=== PATIENT | female | born 1965 | race Caucasian/White ===

== ENCOUNTER 2017-05-16 11:54 | Inpatient (IN) | payer BC ==
[~2017-05-16] VITALS: Ht 160 cm; Wt 59.5 kg
[~2017-05-16 11:54] MED LIST: ALDACTONE50 MG PO; CEFTRIAXON2 GM/50 ML IV; DILAUDID4 MG PO; ENULOSE10 GM/15 M PO; ENULOSE10 GM/15 M PR; FUROSEMIDE20 MG PO; GLIPIZIDE XL10 MG PO; GLIPIZIDE10 MG PO; LACTULOSE10 GM/15 M PO; LACTULOSE20 GM/30 M PO; LASIX20 MG PO; LEVAQUIN 5500 MG/100 IV; METFORMIN HCL1000 MG PO; METRONIDAZ500 MG/100 IV; NOVOLIN R100 UNIT/1 SUB-Q; OMEPRAZOLE20 MG PO; OXYCODONE HCL5 MG PO; PROTONIX40 MG PO; SPIRONOLACTONE50 MG PO; VITAMIN B COMP1 EAC3 PO; XIFAXAN550 MG PO; ZOFRAN ODT4 MG SL; ZOFRAN8 MG PO
--- NOTE | 2017-05-16 19:54 | NUR ---
IV SITE INTACT, NO REDNESS OR SWELLING NOTED, FLUSHES EASILY. PT NOT ABLE TO FOLLOW COMMANDS, IS IMPULSIVE, AND IS NOT ORIENTED TO PLACE, TIME, OR EVENT. PT WILL RESPOND TO HER NAME 50% OF THE TIME. PT DENIES PAIN AT THIS TIME. VITALS WNL.
--- NOTE | 2017-05-16 21:36 | NUR ---
PT CONTINUES TO TOSS AND TURN IN BED, BECOMES FRUSTRATED WITH MONITOR CABLES AND IV SITE. PT RESPONDS OCCASIONALLY WITH ONE WORD RESPONSES "NO" "YES" "OUCH".
--- NOTE | 2017-05-16 23:14 | NUR ---
PT MOSTLY SLEEPING, TURNS OCCASIONALLY IN BED, PT APPEARS LESS DISTRESSED.
--- NOTE | 2017-05-16 23:55 | NUR ---
PT STANDS UP OUT OF BED ON OWN, REQUIRES DIRECTION TO GET TO COMMODE AND GET UNDERPANTS DOWN. PT HAD LIQUID BM AND URINATED. PT REQUIRES DIRECTION TO GET BACK TO BED. PT PULLS OFF MONITOR WIRES, BECOMES TEARFUL WHEN THEY ARE REPLACED. PT IS NOT AWARE OF PLACE, EVENT, OR CARE PLAN. PT IS ABLE TO STATE IT IS NIGHT TIME, ATTEMPTED TO REORIENT PT TO PLACE AND EVENT WELL HER FAMILY AND SO KNOWING WHERE SHE IS. PT DID TAKE SIPS OF SODA, DENIES NAUSEA AND PAIN. PT HAS FLAT AND WITHDRAWN AFFECT, APPEARS FRUSTRATED WITH MEDICAL INTERVENTIONS SUCH VITALS MONITORING. PT PULLS COVERS OVER HERSELF AND REFUSES TO INTERACT WITH HEALTHCARE PROVIDERS.
--- NOTE | 2017-05-17 01:11 | NUR ---
PT UP TO COMMODE AND BATHROOM THREE DIFFERENT TIMES IN THE LAST 30 MIN. PT ABLE TO STATE "CAN I PLEASE USE THE RESTROOM" AND "CAN I HAVE SOME MORE BLANKETS?". PT APPEARS TO BE HAVING DIFFICULTY GETTING COMFORTABLE IN BED. BEHAVIORIST TAKEN OFF FOR PT COMFORT, WILL CONTINUE TO SPOT CHECK, MARGIE WNL. PT TEARFUL AT TIMES AND STATES "I HATE THIS".
--- NOTE | 2017-05-17 01:53 | NUR ---
PT UP AND OUT OF BED SEVERAL TIMES, PT APPEARS TO BE HAVING A DIFFICULT TIME GETTING COMFORTABLE.
--- NOTE | 2017-05-17 03:41 | NUR ---
PT ABLE TO GET UP TO THE BATHROOM ON HER OWN, CLOSELY MONITORED. GATE IS STEADY.
--- NOTE | 2017-05-17 04:02 | NUR ---
PT STILL IRRIATATED WITH MEDICAL INTERVENTIONS, HOWEVER HAS QUIT CURSING AND NOW SAYS "OH FOR GOODNESS SAKE". PT VITALS WNL, HEART RYTHEM REMAINS SINUS.
--- NOTE | 2017-05-17 04:04 | NUR ---
IV SITE INTACT, NO REDNESS OR SWELLING NOTED, FLUSHES EASILY.
--- NOTE | 2017-05-17 04:11 | NUR ---
PT UP TO THE BATHROOM APPROXIMATLY EVERY 15 MIN FOR THE LAST THREE HOURS. PT SOMETIMES HAS SCANT BM, OTHER TIMES FLATUS.
--- NOTE | 2017-05-17 04:52 | NUR ---
PT FINALLY SLEEPING, HAS NOT BEEN UP TO THE BATHROOM IN THE LAST 40 MIN.
--- NOTE | 2017-05-17 05:07 | NUR ---
PT UP TO THE BATHROOM.
--- NOTE | 2017-05-17 05:33 | NUR ---
WHEN ASKING PT QUESTION "DO YOU NEED SOMETHING?" PT NODS HEAD, WHEN ASKED "WHAT CAN I DO FOR YOU?" PT NODS HEAD AND CLOSES HER EYES; CONFUSION STILL PRESENT.
--- NOTE | 2017-05-17 05:57 | NUR ---
LAB IN ROOM TO DRAW. PT DALILA WELL.
--- NOTE | 2017-05-17 07:30 | NUR ---
This RN assumes care of patient who is confused at this time. Patient able to say her name and date of . When asked todays date she repeats her date of . Patient unable to state what year this is or where she is exactly, but does know that she is in [place]. Patient allows RN to do full assessment. Does not make eye contact. Gives one word yes/no answers. Patient has call light, denies other needs.
--- NOTE | 2017-05-17 08:37 | NUR ---
Family at bedside, patient takes lactulose and becomes nauseated. This RN calls MD for nausea med as patient has already recieved Zofran. Medicated pt with additional 4mg IV Zofran. Patient agrees to wear a hospital gown. Has previously been walking around room only in a small tank top. Family report patient is "still real different, but a lot better than yesterday"
--- NOTE | 2017-05-17 08:54 | NUR ---
blood sugar check 190 will notify md as no blood sugar checks or insulin ordered
--- NOTE | 2017-05-17 09:28 | NUR ---
CALLED MD ABOUT INSULIN, MD ORDERS ACCU CHECKS AND S/S INSULIN, PATIENT GIVEN 3 UNITS SUB Q INSULIN FOR BLOOD GLUCOSE OF 190. PATIENT HAS BEEN UP TO BATHROOM SEVERAL TIMES FOR LIQUID BOWEL MOVEMENTS.
--- NOTE | 2017-05-17 11:34 | NUR ---
Patient has been up to the bathroom at least 4 times every hour. Patient has been ambulating independantly, steady on her feet. Patient denies pain/nausea. Patient's significant other at bedside. Patient denies needs.
--- NOTE | 2017-05-17 11:55 | NUR ---
THIS RN ENCOURAGES PATIENT TO TAKE A SHOWER, PATTIENT DOES NOT MAKE EYE CONTACT WITH RN AND SAYS "NO" PATIENT ALLOWS RN TO TAKE VITAL SIGNS, LISTEN TO HEART AND LUNGS. PATIENT RE-ORIENTED TO SURROUNDINGS, DATE, AND EVENT.
--- NOTE | 2017-05-17 12:52 | NUR ---
THIS RN ASSISTS PATIENT TO TAKE A SHOWER AND WASH HER HAIR, BRUSH HER TEETH. PATIENT RELUCTANCT TO SHOWER. PATIENT SHOWERS, BACK TO BED. REFUSES TO EAT ANTHING OFF CLEAR LIQUID TRAY, PATIENT NOT TALKATIVE WITH STAFF, STATES "I AM SO FRUSTRATED." PATIENT HAS CALL LIGHT IN REACH. NO REQUESTS. PT TEARFUL ON AND OFF
--- NOTE | 2017-05-17 13:21 | NUR ---
PATIENT UP TO BATHROOM FOR SMALL LIQUID BOWEL MOVEMENT.
--- NOTE | 2017-05-17 17:49 | NUR ---
Patient c/o nausea. Medicated patient with 4 mg IV Zofran. Patient refuses dinner tray. Patient still unable to correctly state todays date, her current location.
--- NOTE | 2017-05-17 17:52 | NUR ---
PATIENT TOSSING AND TURNING IN BED.
--- NOTE | 2017-05-17 18:19 | NUR ---
Patient up to bathroom, steady on her feet. Voids 100 mls dark donato urine.
--- NOTE | 2017-05-17 20:00 | NUR ---
Patient sitting up in bed; boyfriend in room. Patient answers most questions appropriately; however doesn't answer all questions. When asked where she is, she looks over towards her boyfriend and doesn't answer. Patient was able to answer '[place]' when asked what town we are in, but unable to state 'hospital'. Patient knew we are about to celebrate the 23 of May, but was unable to tell me it is April; able to tell me it is 2016 but not the day of the week or the date. Patient stated full name and date of when asked, and followed all commands when asked.
--- NOTE | 2017-05-17 21:30 | NUR ---
No changes in patient assessment. Patient stated 'NO!' when asked to take her Enulose, but was cooperative in all other cares. Patient reminded to call for help when needing to get out of bed to use the bathroom. Patient remains within view of the nurses station.
--- NOTE | 2017-05-17 22:00 | NUR ---
patient up to bathroom; patient instructed to urinate into hat, but patient either missed the 'hat' or emptied it after voiding as 'hat' was empty after patient left bathroom.
--- NOTE | 2017-05-18 01:00 | NUR ---
PATIENT IS VERY RESTLESS; HAS NOT SLEPT SO FAR THIS SHIFT. PATIENT STATES IS SLIGHTLY NAUSEATED. NO OTHER CHANGES IN ASSESSMENT.
--- NOTE | 2017-05-18 04:00 | NUR ---
PATIENT C/O ABDOMINAL PAIN AND NAUSEA. PATIENT TOLD I DIDN'T HAVE ANYTHING ORDERED FOR PAIN AT THIS TIME. PATIENT DENIES OTHER COMPLAINTS. PATIENT IS AWARE OF BEING IN HOSPITAL, AND ABLE TO TELL THIS NURSE IT IS APRIL 2017
--- NOTE | 2017-05-18 06:35 | NUR ---
PATIENT MORE ALERT AND ORIENTED. PATIENT ANSWERING ALL QUESTIONS APPROPRIATELY AT THIS TIME. PATIENT CONTINUES TO COMPLAIN OF ABDOMINAL PAIN. PATIENT ASKED WHAT SHE DOES FOR THE PAIN AT HOME AND PATIENT STATED 'I TAKE THOSE PAIN MEDICATIONS'.
--- NOTE | 2017-05-18 09:06 | NUR ---
DR SOUTH INTO SEE PT THIS MORNING, NEW ORDERS RECEIVED. PT WILL BE TRANSFERED TO THE M/S UINT SOMETIME TODAY. FAMILY AT BEDSIDE, PT CONTIOUES TO EAT BKF. HAVE FAX NUMBER FOR HER DOCTOR IN [place] TO HAVE THIS VIST FAXED TO HER (SEE WHITE BOARD).
--- NOTE | 2017-05-18 10:44 | NUR ---
PT UP TO BATHROOM, HAD TWO BM SO FAR THIS AM, ONE WAS MIXED WITH URINE AND STOOL.
--- NOTE | 2017-05-18 11:04 | NUR ---
PT PASTORAL CARE INTO SEE PT AT THIS TIME.
[2017-05-18] MEDS ORDERED: LACTULOSE10 GM/15 M PO (11:20)
--- NOTE | 2017-05-18 11:21 | NUR ---
FREINDS INTO SEE PT AT THIS TIME.
[2017-05-18] MEDS ORDERED: ZOFRAN ODT8 MG PO (11:24)
--- NOTE | 2017-05-18 11:25 | NUR ---
MED REC COMPLETE--FILL HISTORY
--- NOTE | 2017-05-18 12:06 | NUR ---
PT UP TO THE BATHROOM, SHE HAS BEEN VOIDING IN THE BS COMMODE THAT IS IN THE BATHROOM AND HAVING BM'S IN THE TOLIET. WHEN STAFF EXPLAINED TO PT THAT SHE COULD JUST GO IN THE TOLIET DUE TO BOTH HAT'S (MEASURING DEVICES) ARE IN THE TOLIET SHE STATES "I CAN'T DO THAT"
--- NOTE | 2017-05-18 12:18 | NUR ---
PT SITTING IN SIDE OF BED. INVITED ME IN, I INTRO. MYSELF AND SHE BEGAN TO WEEP. SHE OPENED UP TO ME THAT SHE IS NOT FEELING ANY BETTER, AND IS SO TIRED OF THE SUFFERING SHE HAS HAD TO ENDURE. SHE ALSO MENTIONED HOW SHE FEELS HER SITUATION HAS NEGATIVELY IMPACTED HER FAMILY. WE DISCUSSED THESE ISSUES SOME, SHE MENTIONED THAT SHE HAS A FRIEND AT HER EPISCOPAL SHE WOULD LIKE TO SEE. AT HER REQUEST I WAS ABLE TO CONTACT HER AND THE TURN DOWN ATTENDANT. THEY BOTH CAME TO VISIT LATER. I HAD PRAYER WITH HER, WILL CONTINUE TO FOLLOW
--- NOTE | 2017-05-18 12:22 | NUR ---
PT DID NOT WANT TO ORDER LUNCH FROM THE KITCHEN, SO FAMILY WENT DOWN TO THE [facility] AND BROUGHT PT A PLATE UP. EXPLAINED THAT SHE IS ON A 2GM LOW SALT DIET. STAFF SAID THIS WOULD BE OKAY DUE TO THE KITCHEN DOES NOT ADD SALT WHEN COOKING ANY FOOD.
--- NOTE | 2017-05-18 13:21 | NUR ---
PER PTS REQUEST NICOTINE PATCH PLACED AT THIS TIME. PT CHEWS SNUFF AND IS A "BIT UPTIGHT" AT THIS TIME. pT CONTIOUES TO HAVE SMALL FREQUENT BM'S PT CONTIOUES TO ASK WHEN SHE WILL BE MOVED TO THE M/S UNIT.
--- NOTE | 2017-05-18 13:26 | NUR ---
PT HAS ATE LUNCH AND HAS DALILA-WELL. PT REQUESTED THE NICOTIN PATCH AT THIS TIME AFTER SHE HAD REFUSED IT THIS MORNING. PT HAS BEEN UP TO THE BATHROOM VOIDING AND HAVING BM'S.
--- NOTE | 2017-05-18 14:53 | NUR ---
REPORT CALLED TO M/S UNIT ALL QUESTIONS ANSWERED, ALL PERSOANL BELONGINGS WENT WITH PT.
--- NOTE | 2017-05-18 15:00 | NUR ---
PT TRANSPORTED VIA CHAIR TO THE M/S UNIT WITH ALL PERSONAL BELONGINGS.
--- NOTE | 2017-05-18 15:19 | NUR ---
PT ARRIVED FROM CCU IN CHAIR. PT IS FLAT AFFECT, SHE ANSWERS SOME QUESTIONS. REPORTS CHRONIC UPPER ABD PAIN. NO OTHER PAIN NOTED. PT REPORTS NO ALLERGIES. SKIN INTACT, HAS SEVERAL TATTOOS. PT IS INDEPENDENT AND STABLE IN ROOM. REMINDED TO USE CALL LIGHT WHEN ASSISTANCE IS NEEDED. IV SL IN R FOREARM. REFUSES ID/FALL BAND.
--- NOTE | 2017-05-18 17:18 | NUR ---
Patient taken shower now.
--- NOTE | 2017-05-18 17:50 | NUR ---
PATIENT SITTING IN THE CHAIR, VISITING WITH FAMILY. DENIES PAIN AT THIS TIME. NO APPARENT DISTRESS.
--- NOTE | 2017-05-18 18:38 | NUR ---
PT TRANSFERED TO THE FLOOR. PT SHOWED FLAT AFFECT, WOULD ANSWER SOME QUESTIONS. INDEPENDENT IN ROOM, DOES NOT USE CALL LIGHT. CONFUSED, NEEDS REDIRECTION. SHOWER ON MED-SURG FLOOR. PT HAS FAMILY AT BEDSIDE.
--- NOTE | 2017-05-18 19:39 | NUR ---
PT ASSESSMENT COMPLETE. PT HAS VISITOR AT BEDSIDE. PT ALERT AND ORIENTED AT THIS TIME. PT INDEPENDENT IN ROOM, SITTING IN CHAIR WATCHING TV. IV SALINE LOCKED, FLUSHES WELL. PT C/O NAUSEA, ZOFRAN GIVEN. PT ON ROOM AIR, DENIES ANY N/V. CALL LIGHT WITHIN REACH. PT DENIES ANY FURTHER NEEDS AT THIS TIME.
--- NOTE | 2017-05-19 00:10 | NUR ---
PT SLEEPING, RR EVEN AND UNLABORED. PT APPEARS COMFORTABLE AT THIS TIME. CALL LIGHT WITHIN REACH.
--- NOTE | 2017-05-19 04:05 | NUR ---
PT SLEEPING, RR EVEN AND UNLABORED. PT APPEARS COMFORTABLE AT THIS TIME. CALL LIGHT WITHIN REACH.
--- NOTE | 2017-05-19 07:10 | NUR ---
BEDSIDE HANDOFF REPORT RECEIVED FROM CASINO SHIFT MANAGER RN. PT RESTING IN BED. PT ASSISTED WITH ORDERING BREAKFAST. PT DENIES OTHER NEEDS AT THIS TIME.
--- NOTE | 2017-05-19 09:00 | NUR ---
PT RESTIN COMFORTABLY IN BED. FRIEND AT BEDSIDE. PT DENIES PAIN. LUNG SOUNDS CLEAR ON ROOM AIR. PT ALERT/ORIENTED. PT TOLERATING ADA DIET, DENIES NAUSEA. PT REPORT OF MULTIPLE LOOSE STOOLS OVERNIGHT, BOWEL TONES ACTIVE. PT BLOOD GLUCOSE 188, GIVEN 3 UNITS NOVOLOG PER SS. PT REQUESTING LACTULOSE TIMING TO BE ADJUSTED TO AVOID BEING UP ALL NIGHT. PT VOICING DESIRE TO DISCHARGE HOME. DISCUSSED PLAN OF CARE WITH PT.
--- NOTE | 2017-05-19 10:41 | NUR ---
MD TO BEDSIDE TO DISCUSS DISCHARGE PLAN. PT TO DISCHARGE HOME. IV CATH REMOVED, PRESSURE HELD, TIP INTACT. PT REQUESTING TO SHOWER, PROVIDED ITEMS FOR SELF CARE. PT CALLED FRIEND FOR RIDE HOME.
--- NOTE | 2017-05-19 13:23 | NUR ---
PT HAS BEEN DC'D. HER DAUGHTER WAS PUSHING HER OUT, WHEN SHE HAD HER STOP AND MOTIONED ME OVER. SHE GAVE ME A HUG AND TOLD ME THANK YOU, AND HAD HER PRAYER SHAWL IN HER LAP. SHE SAID SHE IS FEELING MUCH BETTER, AND SEEMED EXCITED TO BE GOING. EXTENDED A BLESSING
== END 2017-05-19 12:05 | disposition home or self-care (01) | DRG 441 ==
LOC: ED 11:54 → CCU 19:19 → MS 05-18 15:05
PROVIDERS: ADMIT Internal Medicine
DX: K72.90 Hepatic failure, unspecified without coma (principal); G93.41 Metabolic encephalopathy; T40.605A Adverse effect of unspecified narcotics, initial encounter; E11.9 Type 2 diabetes mellitus without complications; Z79.4 Long term (current) use of insulin; B19.20 Unspecified viral hepatitis C without hepatic coma; K21.9 Gastro-esophageal reflux disease without esophagitis
CPT/HCPCS: 36415; 51701; 80048; 80053; 81001; 82140; 83735; 84484; 85025; 96361; 96374; 96376; 99285; 99406; G0480; J2310; J2405; J7030

== ENCOUNTER 2017-08-31 16:45 | Inpatient (IN) | payer BC, OTHER ==
[~2017-08-31] VITALS: Ht 160 cm; Wt 76.3 kg
[~2017-08-31 16:45] MED LIST changes: +ZOFRAN ODT8 MG PO
[2017-08-31] MEDS ORDERED: ALDACTONE25 MG PO (17:05)
--- NOTE | 2017-09-01 00:09 | NUR ---
PT HAS NOT VOIDED SINCE ARRIVAL AT ED TODAY. BLADDER SCAN SHOWED 487ML. PT IS NOT ABLE TO FOLLOW COMMANDS TO URINATE. PT IS NOT ABLE TO SIT ON THE BSC OR THE TOILET. SHE DOES NOT KNOW HOW TO AND. PT SEEMS VERY UNCOMFORTABLE PERHAPS DUE TO HER NEEDING TO URINATE. CALLING MD KHAN FOR ORDERS.
--- NOTE | 2017-09-01 00:24 | NUR ---
PER MD KHAN, WE WILL CONTINUE TO MONITOR BLADDER VOLUME. HE IS CONFIDENT THAT SHE WILL VOID. PT IS SLEEPING AT THIS TIME.
--- NOTE | 2017-09-01 02:50 | NUR ---
PT VOIDED 700ML AT 0150. PT HAS BEEN ON THE TOILET SINCE. PT HAD BM X2 (RUNNY) SO FAR. PT IS NOW BACK IN BED. PT IS STILL DISORIENTED TO ALL AND NOT ABLE TO FOLLOW VERBAL COMMANDS.
--- NOTE | 2017-09-01 03:58 | NUR ---
PT IS SLEEPING AT THIS TIME.
--- NOTE | 2017-09-01 04:00 | NUR ---
PT IS STILL SLEEPING.
--- NOTE | 2017-09-01 05:02 | NUR ---
PT AT THIS TIME HAD BM'S X3, 0415 LACTULOSE DOSE WILL NOT BE GIVEN.
--- NOTE | 2017-09-01 05:10 | NUR ---
RECEIVED REPORT AT 2330. PT SO FAR HAS BEEN DISORIENTED TO ALL AND UNTIL NOW HAS NOT BEEN COOPERATIVE. V/S ARE WDL. PT HAS HAD BM'S X3 AND ORDER FOR PO LACTULOSE HAS BEEN CHANGED TO TID ORDERED BY MD KHAN. PT AT THIS TIME IS STILL NOT ORIENTED AT ALL BUT IS MORE COOPERATIVE OVERALL. PT HAS SLEPT FOR THE MOST PART SINCE HER ARRIVAL ON THIS FLOOR. PT HAS URINATED >700ML SO FAR SINCE ARRIVAL ON FLOOR. NO NEW ISSUES NOTED.
--- NOTE | 2017-09-01 07:49 | NUR ---
WHITEBOARD UPDATED. PATIENT SLEEPING WHEN WALKED INTO ROOM, WOKE UP WHILE UPDATING WHITEBOARD. ASKED IF PATIENT NEEDED ANYTHING, SHE SAID NO AND FELL BACK ASLEEP. DID NOT REFRESH WATER BECAUSE SHE WOULD NOT RE-AWAKEN.
--- NOTE | 2017-09-01 09:01 | NUR ---
[employer]MER [employer]OL COORDINATOR TOOK PATIENT TO BATHROOM. NS CALLED ME IN PATIENT WAS CONFUSED AND SAT IN SHOWER CHAIR INSTEAD OF ON TOILET. PATIENT HAD BM AND VOIDED WHILE SITTING ON SHOWER CHAIR. TOOK BOTH OF US TO GET HER BACK INTO BED SHE WAS SO CONFUSED. PATIENT DOES NOT WANT TO HAVE SHOWER/BEDBATH OR PARTICIPATE IN ANY OF THE AM CARE. LINEN CHANGE WAS COMPLETED WHILE PATIENT WAS IN BATHROOM THOUGH.
--- NOTE | 2017-09-01 09:37 | NUR ---
PATIENT CONTINUED TO REFUSE LACTOLOSE, APPROACHED X4 TIMES WITH MULTIPLE DIFFERENT NURSES. PATIENT WOULD SHAKE HEAD AND SAY " NO". DR. KHAN NOTIFIED, AND ORDERED TO CONTINUE TO REAPPROACH PATIENT WITH MEDICATION. PATIENT APPEARS CONFUSED, WITH FLAT AFFECT. WHEN ASKING PATIENT QUESTIONS, BLANK STARE TO FACE. APPROACHED PATIENT WITH MEDICATION IN SYRINGE, AND SQUIRTED INTO CHEEKS. PATIENT SWALLOWED MEDICAITON AND ASKED US TO "PLEASE STOP". PATIENT NOW RESTING BACK WITH EYES CLOSED. DR. KHAN NOTIFIED LACTOLOSE ADMINISTERED.
--- NOTE | 2017-09-01 10:35 | NUR ---
DURING HEAD TO TOE ASSESSMENT PATIENT DID NOT WANT TO BE TOUCHED OR BLANKETS PULLED BACK. WHEN ASKED IF SHE KNEW WHERE SHE SAID "[facility]". WHEN ASKED IF SHE KNEW WHY SHE IS IN THE HOSPITAL FOR SHE SAID "[facility]:. I ASKED IF SHE COULD TELL ME THE MAIN REASON WHY SHE IS IN THE HOSPITAL AND GOT NO RESPONSE. WHEN ASKED WHAT YEAR IT WAS THE PT DID'NT RESPOND.
--- NOTE | 2017-09-01 10:42 | NUR ---
THIS IS A LATE ENTRY FOR 0900 WHEN PT REFUSED MEDS. PT REFUSED TO TAKE PROTONIX AND XIFAXAN SO DISCARDED MEDS. PT REFUSED LACTULOSE SEVERAL TIMES. GAVE HER THE CHOICE OF LACTULOSE ORAL OR RECTAL. REFUSED BOTH OPTIONS. RN CALLED HER PROVIDER AND HE TOLD HER TO GO ABOUT THE SITUATION IF IT WAS A PEDIATRIC PT. TWO OTHER RN'S ADMINISTERED 30ML OF LACTULOSE VIA SYRINGE. PT SWOLLOWED LACTULOSE AND TOLD RN'S TO "PLEASE STOP". LEFT PT WITH BED ALARM ON, CALL LIGHT IN REACH, SIDE RAILS UP, BED LOWERED, AND GAVE HER TWO NEW WARM BLANKETS.
--- NOTE | 2017-09-01 11:44 | NUR ---
PATIENT FINALLY DOING WELL ENOUGH TO BE HUNGRY. LUNCH ORDERED
--- NOTE | 2017-09-01 11:50 | NUR ---
CHECKED ON PT WHILE COVER CREASER WAS HELPING HER TO HER BEDSIDE COMMODE. PT FEELS WELL ENOUGH TO EAT LUNCH.
--- NOTE | 2017-09-01 12:45 | NUR ---
NURSE IN ROOM
--- NOTE | 2017-09-01 13:00 | NUR ---
PATIENT APPEARS MORE AWAKE AT THIS TIME, HAS HAD MULTIPLE BOWEL MOVEMENTS. DR. KHAN VERBALIZED TO HOLD LACTOLOSE, AND DC PER RECTAL. PATIENT DENIES ANY NEEDS. BED ALARM ON, PATIENT WILL JUST GET UP AND MOVE TO BSC WITHOUT CALLING. APPEARS STEADY ON FEET, AWAKE, AND ONLY ORIENTED TO PERSON.
[2017-09-01] MEDS ORDERED: HUMALOG100 UNITS/ IV (16:11)
[2017-09-01] MEDS ORDERED: LANTUS100 UNITS/ SUB-Q (16:12)
--- NOTE | 2017-09-01 16:41 | NUR ---
PATIENT PULLED HER IV IN THE RIGHT FOREARM, TIP INTACT NO REDDNESS OR SWELLING NOTED. NEW IV #20 GUAGE STARTED IN THE LEFT WRIST.
--- NOTE | 2017-09-01 18:00 | NUR ---
PATIENT IN BED, WITH FAMILY AT BEDSIDE. PATIENT TOLERATED SOME MAC AND CHEESE. ONLY A FEW BITES. DOES NOT SEEM INTERESTED IN EATING. PROVIDED WITH FRESH WATER AND MEAL REPLACEMENT SHAKE FOR DIABETICS. NO COMPLAINTS OF PAIN OR NAUSEA. LUNG SOUNDS CLEAR, HR REGULAR.
--- NOTE | 2017-09-01 20:00 | NUR ---
RECEIVED REPORT AT 1900. FOUND PT IN BED WITH FAMILY AT BEDSIDE. PT SEEMS MORE WITH IT NOW.
--- NOTE | 2017-09-01 22:00 | NUR ---
V/S ARE WDL, LACTULOSE DOSE FOR 2100 WAS HELD PER MD KHAN, PT IS ORIENTED TO SELF ONLY AND MUCH MORE COOPERATIVE OVERALL. PT IS ALSO ABLE TO FOLLOW COMMANDS NOW. I&O ARE ADEQUATE. ALL LOBES ARE CLEAR, NO PERIPHERAL EDEMA NOTED. PT IS IN BED NOW.
--- NOTE | 2017-09-02 00:34 | NUR ---
PT IS SLEEPING AT THIS TIME
--- NOTE | 2017-09-02 03:10 | NUR ---
PT WOKE UP AROUND 0250. PT NOW IS ORIENTED X4. PT SEEMS SAD IN REGARDS TO HER PRESENT CIRCUMSTANCES AND HER GENERAL DISEASE PROCESS. PT IS RESTING IN BED AT THIS TIME.
--- NOTE | 2017-09-02 05:54 | NUR ---
AT START OF SHIFT PT WAS ORIENTED TO SELF. BG WAS 144 AND PT RECEIVED 1 UNIT OF NOVOLOG INSULIN. PT SLEPT MOST OF THE NIGHT. AT THIS TIME, PT IS ORIENTED X4 AND HAS REMAINED SUCH FOR A COUPLE OF HOURS NOW. V/S ARE WDL. PT SEEMS SAD IN REGARDS TO HER CURRENT CIRCUMSTANCES AND HER CONDITION OVERALL. A NEW IV NEEDS TO BE STARTED. OLD IV INFILTRATED. LACTULOSE DOSE WAS HELD AT 2100 ON 09/01/17. PT FOLLOWS COMMANDS AND IS COOPERATIVE. NO NEW ISSUES NOTED SO FAR.
--- NOTE | 2017-09-02 07:40 | NUR ---
PATIENT WAS IN HER ROOM I MADE SURE HER PHONE WAS CLOSE SO HER DAUGHTER COULD CALL AND HER CALL LIGHT WAS IN REACH WELL.
--- NOTE | 2017-09-02 07:45 | NUR ---
PT AWAKE IN BED. FRESH WATER AND UP DATE BOURD. PT STATED SHE DID NOT NEED ANYTHING ELES
[2017-09-02] MEDS ORDERED: LACTULOSE10 GM/15 M PO (11:04)
--- NOTE | 2017-09-02 11:36 | NUR ---
TOOK VITEL. PT DOING WELL. EMPTYED GARBAGE. ADN PICKED UP ROOM.
== END 2017-09-02 14:25 | disposition home or self-care (01) | DRG 442 ==
LOC: ED 16:45 → MS 20:54
PROVIDERS: ADMIT Internal Medicine
DX: K72.90 Hepatic failure, unspecified without coma (principal); D61.818 Other pancytopenia; E86.0 Dehydration; R73.9 Hyperglycemia, unspecified; E11.65 Type 2 diabetes mellitus with hyperglycemia; Z79.4 Long term (current) use of insulin; K74.60 Unspecified cirrhosis of liver; B18.2 Chronic viral hepatitis C; D73.1 Hypersplenism; F17.220 Nicotine dependence, chewing tobacco, uncomplicated
CPT/HCPCS: 36415; 80048; 80053; 82140; 83735; 85025; 99285; J2405; J7120

== ENCOUNTER 2019-09-27 11:50 | Inpatient (IN) | payer OTHER ==
[~2019-09-27] VITALS: Ht 160 cm; Wt 72.9 kg
[~2019-09-27 11:50] MED LIST changes: +ALDACTONE25 MG PO; +FIRVANQ25 MG/1 ML PO; +HUMALOG100 UNITS/ SUB-Q; +LANTUS100 UNITS/ SUB-Q
[2019-09-27] MEDS ORDERED: VITAMIN C500 M1 (12:04)
[2019-09-27] MEDS ORDERED: OMEPRAZOLE20 MG PO (12:04)
--- NOTE | 2019-09-27 18:50 | NUR ---
PT ARRIVED TO FLOOR VIA STRETCHER. PT IS NOT ORIENTED. UNABLE TO FOLLOW COMMANDS. 3PA TO SLIDE TRANSFER. VITALS TAKEN AND STABLE. WEIGHT DOCUMENTED. IV STARTED IN LEFT HAND. SIGNIFICANT OTHER AT BEDSIDE. BED ALARM IN PLACE. VISIBLE FROM NURSING STATION. REPORT GIVEN TO ONCOMING NURSE.
--- NOTE | 2019-09-27 19:25 | NUR ---
RECEIVED REPORT FROM ANDREI MONTEZ. ANDREI DEL CASTILLO IN ROOM TO START IV. WHITEBOARD UPDATED. CALL LIGHT WITHIN REACH.
--- NOTE | 2019-09-27 19:41 | NUR ---
ANDREI GOLDSMITH IN ROOM DOING ADMISSION. IV FLUIDS STARTED, MED GIVEN (SEE MAR).
--- NOTE | 2019-09-27 19:55 | NUR ---
pts BS was checked with a reading of 243. RN Concetta notified.
--- NOTE | 2019-09-27 20:00 | NUR ---
CHARGE RNR OUNDING NOTE. PT ADMISSION COMPLETED BY THIS FUSING MACHINE TENDER. PT SIGNIFICANT OTHER AT BEDSIDE. PT DISORIENTED AT THIS TIME. FURTHER NEEDS AND QUESTIONS DENIED. CALL LIGHT IN REACH. ROOM IN VIEW OF RN STATION.
--- NOTE | 2019-09-27 20:27 | NUR ---
pt RESTING IN BED. MEDICATION GIVEN (SEE MAR). pt TOLERATED INJECTION BUT WINCED WHEN GIVEN. REFUSED MEDICATION, NODDING WHEN ASKED IF WILLING TO TAKE BUT BACKED AWAY EACH TIME. REFUSED WATER WELL. WILL TRY AGAIN LATER. ASSESSMENT DONE. BED ALARM ON. CURTAIN OPEN TO NURSES STATION.
--- NOTE | 2019-09-27 22:15 | NUR ---
ATTEMPTED TO GIVE MEDICATIONS AGAIN. pt WOULD NOD HEAD AND THEN PUSH MEDICATION AWAY WITH HAND OR MOVE HEAD AWAY. REFUSED TO TAKE A SIP OF WATER. MD NOTIFED, WILL READDRESS IN THE AM, NO NEW ORDERS AT THIS TIME. CALL LIGHT WITHIN REACH. BED ALARM ON. DOOR AND CURTAIN OPEN TO NURSES STATION.
--- NOTE | 2019-09-28 00:21 | NUR ---
ROUNDED ON pt. RESTING WITH EYES CLOSED RESPIRATIONS REGULAR AND UNLABORED CALL LIGHT WITHIN REACH.
--- NOTE | 2019-09-28 01:20 | NUR ---
HEARD MOVEMENT IN ROOM. pt SITTING ON BED. ATTEMPTED TO GET UP. 2PA TO BSC. VOIDED URINE AND LIQUID BM. pt CONFUSED REQUIRED CUEING TO SIT ON COMMODE. REQUIRED HEAVY ASSIST TO STAND, BACK TO BED. VITALS RECORDED. ASSESSMENT DONE. TOOK A SIP OF WATER. ONE UNDERSTANDABLE WORD, DID NOT ANSWER QUESTIONS. BED ALARM ON. CURTAIN OPEN TO THE NURSES STATION.
--- NOTE | 2019-09-28 03:43 | NUR ---
ROUNDED ON pt. RESTING WITH EYES CLOSED, RESPIRATIONS REGULAR AND UNLABORED. CALL LIGHT WITHIN REACH.
--- NOTE | 2019-09-28 06:13 | NUR ---
MEDICATION DUE. pt REFUSED MED SEVERAL TIMES, DID TAKE A SIP OF WATER, TRIED MEDICATION IN WATER CUP, pt TOOK ONE SIP OF MEDICATION APPROX 10ML THEN REFUSED THE REST. ATTEMPTED A FEW MORE TIMES. pt REFUSED. pt REFUSED TO AMBULATE TO [facility] [place]. LAB INTO DRAW. pt COOPERATED. BED ALARM ON.
--- NOTE | 2019-09-28 07:00 | NUR ---
Patient laying in bed on left side, eyes open. Patient is non-verbal and unresponsive. Report received, orders acknowledged. LR running at 75 mls/hr. Bed alarm in place. Poor oral intake, will continue to encourage fluids. Call light within reach.
--- NOTE | 2019-09-28 07:43 | EKG ---
[facility] [address] [facility] [place], [place] [address] Signed Normal sinus rhythm Normal ECG No previous ECGs available Confirmed by NELLIE JAY MD ([id number]) on 09/28/2019 7:42:50 AM Electronically Signed By: NELLIE JAY MD 09/28/19 0743 PATIENT NAME: LAURIE VELARDE Electrocardiogram DATE OF : 65 PHYSICIAN: NELLIE JAY MD REPORT #: [id number] REPORT IS CONFIDENTIAL AND NOT TO BE RELEASED WITHOUT AUTHORIZATION
--- NOTE | 2019-09-28 08:15 | NUR ---
Patient ambulated to toilet with 2PA. Void X1 and BM X1. Continues to be nonverbal, responses to voice with eye contact. Patient ambulated to chair with 2PA, chair alarm in place. 300 mls of PO intake. IV protonix given, patient refusing to take crushed rifaxamin. LR running at 75 mls/hr. Will update Dr. Carmen.
--- NOTE | 2019-09-28 10:00 | NUR ---
Patient takes rifaxamin with applesauce.
--- NOTE | 2019-09-28 10:57 | NUR ---
Patient sitting in chair with chair alarm on. Clear liquid tray is on table at chairside. LR running at 75 mls/hr. Patient continues to be nonverbal. Call light within reach.
--- NOTE | 2019-09-28 11:20 | NUR ---
Dr. Carmen in room discussing POC with patient. Importance of taking lactulose to improve symptoms discussed. Patient continues to be nonverbal. Eventually, remaining 35 mls of lactulose taken. Patient sitting in chair with alarm on. Family in room.
--- NOTE | 2019-09-28 12:02 | NUR ---
Patient laying in bed with eyes closed. Family at bedside. Call light within reach.
--- NOTE | 2019-09-28 12:28 | NUR ---
BS of 300, 7 units of insulin given. Patient ambulated to chair with 2PA, unsteady on feet. Chair alarm in place. Lunch delivered. Patient continues to be nonverbal, communicates by nodding yes or shaking head no. Family in room. D5LR running at 100 mls/hr.
--- NOTE | 2019-09-28 14:30 | NUR ---
Patient laying in bed with eyes closed, bed alarm on. Family in room with patient. Patient compliant with taking lactulose. Patient continues to be withdrawn, although is beginning to speak in one word sentences. Water refreshed, no further needs at this time. Call light within reach.
--- NOTE | 2019-09-28 17:15 | NUR ---
Patient ambulated to chair with 1PA, becoming more steady on feet. Chair alarm in place. Dinner delivered, staff assisting with meal. BS of 317, 7 units of insulin given. Call light within reach.
--- NOTE | 2019-09-28 18:00 | NUR ---
Dr. Carmen called and notified that patient has had 3 BM's. Orders to give third dose of lactulose tonight. Report given that patient is ambulating with steadier gait and ate solid food for dinner with no issue.
--- NOTE | 2019-09-28 19:11 | NUR ---
RECEIVED REPORT FROM ANDREI MONTEZ. pt SITTING IN CHAIR, INTENTLY WATCHING TV. WHITEBOARD UPDATED. CALL LIGHT WITHIN REACH. CHAIR ALARM ON.
--- NOTE | 2019-09-28 20:09 | NUR ---
TREATING ENGINEER ROUNDING NOTE. PT SITTING UP IN CHAIR WITH SIG OTHER AT BEDSIDE. PT SHAKES HEAD YES AND NO APPROPRIATELY TO QUESTIONS. PT AND SIG OTHER DENY NEEDS AT THIS TIME. WHITE BOARD UPDATED. CALL LIGHT IN REACH. ROOM IN VIEW OF RN STATION.
--- NOTE | 2019-09-28 20:50 | NUR ---
pt SITTING IN CHAIR. MEDICATIONS GIVEN (SEE MAR). pt INITIALLY REFUSED LACTULOSE THEN TOOK. COOPERATED WITH ASSESSMENT AND INTERVENTIONS. REFUSED TO AMBULATE AT THIS TIME. CHAIR ALARM ON. CURTAIN OPEN TO NURSES STATION
--- NOTE | 2019-09-28 20:54 | NUR ---
V/S AND I&O TAKEN AND CHARTED. FAMILY IS IN THE ROOM.
--- NOTE | 2019-09-28 21:45 | NUR ---
pt SITTING IN CHAIR. NODDING WHEN ASKED IF NEEDING TO VOID. pt 1PA UP TO VOID, BM AND URINE. AMBULATED TO BED. BED ALARM ON. ASSESSMENT DONE. NEW IV FLUIDS HUNG. CALL LIGHT WITHIN REACH. CURTAIN OPEN TO THE NURSES STATION.
--- NOTE | 2019-09-28 23:45 | NUR ---
ROUNDED ON pt. RESTING WITH EYES CLOSED, RESPIRATIONS REGULAR AND UNLABORED. CALL LIGHT WITHIN REACH. BED ALARM ON.
--- NOTE | 2019-09-29 01:39 | NUR ---
ROUNDED ON pt. RESTING WITH EYES CLOSED, RESPIRATIONS REGULAR AND UNLABORED. CALL LIGHT WITHIN REACH.
--- NOTE | 2019-09-29 03:32 | NUR ---
CALL LIGHT ON. HEEL SEAT POUNDER IN ROOM pt TALKING IN COMPLETE SENTENCES ASKING ABOUT THE DATE. THIS RN TO ROOM. QUESTIONS ANSWERED, ORIENTED pt TO EVENT AND DATE. pt ORIENTED TO SELF. POSSESSIONS WITHIN REACH. pt DENIED NEEDING TO VOID. FRESH WATER PROVIDED. CALL LIGHT WITHIN REACH. BED ALARM ON.
--- NOTE | 2019-09-29 04:16 | NUR ---
pt UP TO TOILET AND BACK TO BED, SBA. RECOGNIZED PERFORMANCE TEST ENGINEER FROM TIME PRIOR TO THIS ADMISSION. ORIENTED. WATER PROVIDED. NO FURTHER REQUESTS AT THIS TIME. CALL LIGHT WITHIN REACH.
--- NOTE | 2019-09-29 04:50 | NUR ---
pt RESTED MOST OF SHIFT. WOKE AT APPROX 0330, COHERENT AND CONFUSED ABOUT EVENTS. ORIENTED TO SITUATION AND pt SHOWED CLEAR COGNITION. SBA TO VOID. BM X2. IVF INFUSING. TOLERATING 2GM SODIUM/ADA DIET. ACCU CHECK AND SLIDING SCALE INSULIN. CURRENTLY USING CALL LIGHT APPROPRIATELY.
--- NOTE | 2019-09-29 05:57 | NUR ---
pt TALKING ON PHONE. VITALS DONE. MEDICATION GIVEN (SEE MAR) pt TOOK ENULOSE WITH COFFEE. NO REQUESTS AT THIS TIME. CALL LIGHT WITHIN REACH.
--- NOTE | 2019-09-29 06:28 | NUR ---
SET pt UP TO SHOWER. pt WILL CALL IF SHE NEEDS ANYTHING. CALL LIGHT WITHIN REACH.
--- NOTE | 2019-09-29 06:53 | NUR ---
sba pt while getting dressed, sba pt bk to bed from toilet, pt did not need anything else, left pt to relax c/ call light and bs table in reach,
--- NOTE | 2019-09-29 07:00 | NUR ---
Report received, orders acknowledged. Patient sitting up in bed watching tv. Patient responds appropriately, communicates verbally, and is alert and oriented to person, place, and time. POC discussed, as well as POC during patients hospitalization. Denies further needs at this time, call light within reach.
--- NOTE | 2019-09-29 09:26 | NUR ---
PT LAYING IN BED. PT HAS VISITOR IN ROOM. PT HAS NO NEEDS AT THIS TIME.
--- NOTE | 2019-09-29 09:30 | NUR ---
Patient sitting up in bed watching tv. Breakfast delivered, 75% of meal eaten. Family in room visiting. AM medications given, assessment complete. Patient verbal and communicates appropriately. Denies further needs at this time, call light within reach.
--- NOTE | 2019-09-29 11:20 | NUR ---
Patient sitting in bed watching tv. Family in room visiting. Denies any needs at this time, call light within reach.
--- NOTE | 2019-09-29 13:00 | NUR ---
Discharge instructions given, questions and concerns answered. Patient verbalized understanding of s/sx and worsening symptoms of hepatic encephalopathy. Family verbalized understanding of when to bring patient to hospital from increased confusion and s/sx of hepatic encephalopathy. All personal belongings collected. Patient leaves unit ambulatory with family and nursing staff.
== END 2019-09-29 13:00 | disposition home or self-care (01) | DRG 442 ==
LOC: ED 11:50 → MS 18:35
PROVIDERS: ADMIT Internal Medicine
DX: K72.00 Acute and subacute hepatic failure without coma (principal); N17.9 Acute kidney failure, unspecified; D61.818 Other pancytopenia; K74.60 Unspecified cirrhosis of liver; B19.20 Unspecified viral hepatitis C without hepatic coma; K21.9 Gastro-esophageal reflux disease without esophagitis; E11.9 Type 2 diabetes mellitus without complications; Z87.891 Personal history of nicotine dependence; Z91.14 Patient's other noncompliance with medication regimen; Z79.2 Long term (current) use of antibiotics; Z79.4 Long term (current) use of insulin; Z79.899 Other long term (current) drug therapy
CPT/HCPCS: 36415; 71045; 80048; 80053; 82140; 83735; 85025; 93005; 93010; 99285-25; C9113; J1815; J3475; J7121

== ENCOUNTER 2020-01-27 11:45 | Emergency (ER) | payer MEDICARE, MEDICAID ==
[~2020-01-27] VITALS: Ht 160 cm; Wt 72.6 kg
[~2020-01-27 11:45] MED LIST changes: +VITAMIN C500 M1
--- OUTSIDE RECORDS SUMMARY | 2020-01-27 11:48 | XMS ---
[facility] Notification: LAURIE VELARDE Security Mechanical Engineering Technologist Events No recent Security Events currently on file CRITERIA MET - [facility] - 2 Visits in 30 Days CARE PROVIDERS FELIX LEW [facility] 10/17/2016-Current PHONE: Unknown Felix [facility] Current PHONE: Unknown [facility] 10/17/2016-Current INC PHONE: Unknown Luciano has no Care Guidelines for this patient. E.D. VISIT COUNT (12 MO.) 1 [facility] Fatuma 2 OCTAVIA CisnerosRoel TOTAL 3 NOTE: Visits indicate total known visits. ED/UCC VISIT TRACKING (12 MO.) 01/27/2020 11:45 [facility] [place] TYPE: Emergency COMPLAINT: - RIGHT FOOT PAIN NON INJURY [facility] DIAGNOSES: - Bloated - Other ascites - Shortness of Breath - Abdominal Distension - Other ascites - Unspecified cirrhosis of liver - abd swelling 09/27/2019 11:51 [facility] [place] TYPE: Emergency COMPLAINT: - CONFUSION INPATIENT VISIT TRACKING (12 MO.) 09/27/2019 18:35 [facility] [place] TYPE: Medical Surgical COMPLAINT: - HEPATIC ENCEPHALOPATHY ACUTE KIDNEY INJURY DIAGNOSES: - Disorientation, unspecified - Unspecified viral hepatitis C without hepatic coma - Unspecified cirrhosis of liver - Other pancytopenia - Patient's other noncompliance with medication regimen - Acute kidney failure, unspecified - Unspecified viral hepatitis C without hepatic coma - Personal history of nicotine dependence - intermediate (current) use of antibiotics - Acute and subacute hepatic failure without coma - Acute kidney failure, unspecified - 1 Type 2 diabetes mellitus without complications - Gastro-esophageal reflux disease without esophagitis - Gastro-esophageal reflux disease without esophagitis - intermediate (current) use of insulin - marine oil terminal superintendent (current) use of antibiotics - Unspecified cirrhosis of liver - Personal history of nicotine dependence - Other terminal press operator (current) drug therapy - Other pancytopenia - Acute and subacute hepatic failure without coma - Patient's other noncompliance with medication regimen - 1 Type 2 diabetes mellitus without complications - intermediate (current) use of insulin - Other fpc (current) drug therapy [email or web address]
== END 2020-01-27 14:21 | disposition home or self-care (01) ==
LOC: ED 11:45
DX: M72.2 Plantar fascial fibromatosis (principal); E11.9 Type 2 diabetes mellitus without complications; Z87.891 Personal history of nicotine dependence; Z79.899 Other long term (current) drug therapy; Z79.4 Long term (current) use of insulin
CPT/HCPCS: 73610; 73630; 99283-25

== ENCOUNTER 2020-09-29 13:48 | Emergency (ER) | payer MEDICARE, MEDICAID ==
[~2020-09-29] VITALS: Ht 160 cm; Wt 81.2 kg
[2020-09-29] MEDS ORDERED: FUROSEMIDE20 MG PO (14:02)
[2020-09-29] MEDS ORDERED: SPIRONOLACTONE50 MG PO (14:02)
[2020-09-29] MEDS ORDERED: OXYCODONE HCL5 MG PO (15:59)
== END 2020-09-29 16:30 | disposition home or self-care (01) ==
LOC: ED 13:48
DX: S06.9X1A Unspecified intracranial injury with loss of consciousness of 30 minutes or less, initial encounter (principal); S52.125A Nondisplaced fracture of head of left radius, initial encounter for closed fracture; S20.212A Contusion of left front wall of thorax, initial encounter; W10.9XXA Fall (on) (from) unspecified stairs and steps, initial encounter; E11.9 Type 2 diabetes mellitus without complications; Z79.899 Other long term (current) drug therapy; Z79.4 Long term (current) use of insulin
CPT/HCPCS: 29105; 70450; 71046; 73080; 99284-25

== ENCOUNTER 2021-05-03 17:49 | Emergency (ER) | payer MEDICARE, MEDICAID ==
[~2021-05-03] VITALS: Ht 160 cm; Wt 81.2 kg
--- OUTSIDE RECORDS SUMMARY | 2021-05-03 17:52 | XMS ---
[facility] Notification: LAURIE VELARDE Security Bin Cleaner Events No recent Security Events currently on file CRITERIA MET - TAP CARE PROVIDERS FELIX LOUIE [facility] 10/17/2016-Current PHONE: [phone] Luciano has no Care Guidelines for this patient. E.DRoel VISIT COUNT (12 MO.) 1 [facility] 2 OCTAVIA Garcia TOTAL 3 NOTE: Visits indicate total known visits. ED/C VISIT TRACKING (12 MO.) 05/03/2021 17:50 [facility] [place] TYPE: Emergency COMPLAINT: - DOG BITE 09/29/2020 13:49 [facility] [place] TYPE: Emergency COMPLAINT: - FALL, FACE, LEFT ARM/SIDE PAIN DIAGNOSES: - Unspecified intracranial injury with loss of consciousness of 30 minutes or less, initial encounter - Nondisplaced fracture of head of left radius, initial encounter for closed fracture - Other correction (current) drug therapy - Type 2 diabetes mellitus without complications - exterminator (current) use of insulin - Unspecified intracranial injury with loss of consciousness of 30 minutes or less, initial encounter - Contusion of left front wall of thorax, initial encounter - Fall (on) (from) unspecified stairs and steps, initial encounter - Nondisplaced fracture of head of left radius, initial encounter for closed fracture [facility] DIAGNOSES: - Unspecified cirrhosis of liver - Other ascites - fluid in abdomin - Abdominal Pain INPATIENT VISIT TRACKING (12 MO.) No inpatient visits to display in this time frame [email or web address]
[2021-05-03] MEDS ORDERED: AMOX TR-K CLV1 EAC1 PO (17:59)
[2021-05-03] MEDS ORDERED: TRAMADOL HCL50 MG PO (17:59)
[2021-05-03] MEDS ORDERED: XIFAXAN550 MG PO (17:59)
[2021-05-03] MEDS ORDERED: PREDNISONE20 MG PO (19:12)
--- NOTE | 2021-05-04 09:29 | NUR ---
PER ANTONY AT DR. ALVA OFFICE PATIENT HAS FOLLOW UP SCHEDULE TOMORROW AT 11:00 AM. ADVISED ANTONY THAT PATIENT WAS INQUIRIING ABOUT RECVING MORE HELP AT HOME WITH PERSONAL CARE. ANTONY WILL LET DR. LOUIE KNOW THAT PATIENT WOULD LIKE TO DISCUSS HER OPTIONS AT HER APPOINTMENT TOMORROW. NO FURTHER DISCHARGE PLANNING REQUIRED AT THIS TIME.
== END 2021-05-03 19:44 | disposition home or self-care (01) ==
LOC: ED 17:49
DX: S81.852A Open bite, left lower leg, initial encounter (principal); M72.2 Plantar fascial fibromatosis; M10.9 Gout, unspecified; W54.0XXA Bitten by dog, initial encounter; E11.9 Type 2 diabetes mellitus without complications; Z79.899 Other long term (current) drug therapy; Z79.891 Long term (current) use of opiate analgesic; Z79.4 Long term (current) use of insulin
CPT/HCPCS: 99283; J7512

== ENCOUNTER 2021-06-11 09:20 | Inpatient (IN) | payer MEDICARE, MEDICAID ==
[~2021-06-11] VITALS: Ht 160 cm; Wt 66.9 kg
[~2021-06-11 09:20] MED LIST changes: +AMOX TR-K CLV1 EAC1 PO; +PREDNISONE20 MG PO; +TRAMADOL HCL50 MG PO
--- OUTSIDE RECORDS SUMMARY | 2021-06-11 09:22 | XMS ---
[facility] Notification: LAURIE VELARDE Security Education Reviewer Events No recent Security Events currently on file CRITERIA MET - TAP CARE PROVIDERS FELIX LOUIE [facility] 10/17/2016-Current PHONE: [phone] Luciano has no Care Guidelines for this patient. E.Mindy VISIT COUNT (12 MO.) 2 [facility] 3 OCTAVIA Garcia TOTAL 5 NOTE: Visits indicate total known visits. ED/C VISIT TRACKING (12 MO.) 06/11/2021 09:20 [facility] [place] TYPE: Emergency COMPLAINT: - ALTERED MENTAL STATUS, NO EATING/DRINK, FATIGUE 05[facility]10/2021 15:22 [facility] DIAGNOSES: - Other ascites - fluid drained from stomach - Abdominal Pain 05/03/2021 17:50 [facility] [place] TYPE: Emergency COMPLAINT: - DOG BITE DIAGNOSES: - Other chcf (current) drug therapy - Type 2 diabetes mellitus without complications - Open bite, left lower leg, initial encounter - intermediate project manager (current) use of opiate analgesic - Plantar fascial fibromatosis - jail (current) use of insulin - Gout, unspecified - Open bite, left lower leg, initial encounter - Bitten by dog, initial encounter 09/29/2020 13:[address] [facility] [place] TYPE: Emergency COMPLAINT: - FALL, FACE, LEFT ARM/SIDE PAIN DIAGNOSES: - Unspecified intracranial injury with loss of consciousness of 30 minutes or less, initial encounter - Nondisplaced fracture of head of left radius, initial encounter for closed fracture - Other chcf (current) drug therapy - Type 2 diabetes mellitus without complications - jail (current) use of insulin - Unspecified intracranial injury with loss of consciousness of 30 minutes or less, initial encounter - Contusion of left front wall of thorax, initial encounter - Fall (on) (from) unspecified stairs and steps, initial encounter - Nondisplaced fracture of head of left radius, initial encounter for closed fracture 07/01/2020 09:03 [facility] Luz RICHARDS[facility] TYPE: Emergency DIAGNOSES: - Unspecified cirrhosis of liver - Other ascites - fluid in abdomin - Abdominal Pain INPATIENT VISIT TRACKING (12 MO.) No inpatient visits to display in this time frame [email or web address]
[2021-06-11] MEDS ORDERED: OXYCODONE HCL5 MG PO (16:41)
[2021-06-11] MEDS ORDERED: COLCRYS0.6 MG PO (16:42)
--- NOTE | 2021-06-11 17:29 | NUR ---
CALL TO [facility] TO FIND OUT IF PT WAS COVID TESTED AT LAST VISIT. PT WAS SEEN ON 05/26 AND WAS NOT TESTED AT THAT TIME.
--- NOTE | 2021-06-11 18:38 | NUR ---
V/S UPON ARRIVAL WERE WDL, PT IS REFUSING STRAIGHT CATH AND LACTULOSE AND ANY FOOD AT THIS TIME. MD KHAN WAS CALLED AND IS AWARE. NO NEW ORDERS WERE RECEIVED. ALL LOBES ARE CLEAR, ABD SOUNDS PRESENT, NO ABD DISTENTION IS PRESENT. NO PERIPH EDEMA NOTED, PT IS ABLE TO HAVE A CLEAR CONVERSATION ABOUT GENERAL THINGS AND WHAT SHE WANTS AND DOES NOT WANT. PT HOWEVER IS DISORIENTED TO PLACE, TIME, CIRCUMSTANCE.
--- NOTE | 2021-06-11 19:30 | NUR ---
SHIFT REPORT RECEIVED FROM BEENA FORBES. PT ANGELIA IN BED. IV FLUIDS INFUSING PER ORDER. NO NEEDS. CALL LIGHT IN REACH.
--- NOTE | 2021-06-11 21:00 | NUR ---
ASSESSMENT, VS AND I&O COMPLETED. IV FLUIDS INFUSING PER ORDER. GCS 15, A&O X4. PT CRYING ABOUT GETTING COVID AND BEING IN THE HOSPITAL, THERAPUTIC COMMUNICATION PROVIDED. LUNGS CLEAR, HEART TONES HAVE MURMUR. ABD SOFT, NONTENDER, BOWEL TONES ACTIVE. GENERALIZED EDEMA NOTED IN LEFT FOREARM, PT STATES CHRONIC. PT REPORTS DISCOMFORT AT L AC IV SITE, FLUSHED WELL, CDI, NO SWELLING OR REDNESS AT SITE. CMS INTACT. NO OTHER NEEDS AT THIS TIME. CALL LIGHT IN REACH.
--- NOTE | 2021-06-11 22:00 | NUR ---
PT REPORTS PAIN AND SWELLING AT IV SITE. IV APPEARS TO HAVE SLIGHT LEAKING. PT FIRMLY REQUESTS THE IV BE REMOVED DUE TO PAIN, PROVIDED. RN ATTEMPTS TO START NEW IV X2 WITHOUT SUCCESS. PT IS VERY PAINFUL WITH ATTEMPTS. RN ASKS FOR OTHER RNs TO ASSIST. ORAL FLUIDS PROVIDED AND EDUCATION PROVIDED TO DRINK MUSCH POSSIBLE WHILE THE IV FLUID IS NOT RUNNING. NO OTHER NEEDS AT THIS TIME. CALL LIGHT IN REACH,
--- NOTE | 2021-06-12 01:30 | NUR ---
IV ATTEMPTS X 3, UNSUCCESSFUL
--- NOTE | 2021-06-12 02:30 | NUR ---
PT RESTING IN BED, CALL LIGHT IN REACH.
--- NOTE | 2021-06-12 04:55 | NUR ---
IN TO GET VITALS, FRESH ICE WATER AND HOT TEA PROVIDED AT THIS TIME, NO FURTHER NEEDS
--- NOTE | 2021-06-12 05:50 | NUR ---
CALLED TO INFORM HIM OF LACK OF IV, NUMEROUS IV ATTEMPTS AND INABILITY TO PROVIDE ORDERED IV FLUIDS THIS SHIFT. ORDERS TO ASK DEB FORBES FROM CCU, PICC LINE RN, TO TAKE A LOOK AT THE PT FOR IV ACCESS TODAY. BINDING CUTTER YAJAIRA WILL PASS THIS REQUEST ON TO DEB FORBES. LABS WILL BE DELAYED UNTIL SHE CONSULTS. LAB NOTIFIED BY PHONE TO ROBINSON FORBES.
--- NOTE | 2021-06-12 08:04 | NUR ---
RECEIVED REPORT AT ABOUT 0700, PT AT THAT TIME WAS AWAKE IN BED. ALL LOBES ARE CLEAR AT THIS TIME, HEART MURMUR HEARD, ABD SOUNDS PRESENT, PT IS MUCH MORE ALERT AND COOPERATIVE THIS MORNING, NO CONCERNS NOTED WITH FIRST ASSESSMENT THIS MORNING. BP SOMEWHAT ELEVATED, OTHER V/S WDL. PT TOOK ALL HER MORNING MEDS. BG 127, NO INSULIN WAS GIVEN.
--- NOTE | 2021-06-12 08:21 | NUR ---
WHITE BOARD UPDATED. PT IS AWAKE AND INDEPENDENT IN THE ROOM. PT FINISHED BREAKFAST AND IS ON THE PHONE WITH FAMILY. CALL LIGHT WITHIN REACH AND NO FURTHER NEEDS AT THIS TIME.
--- NOTE | 2021-06-12 10:00 | NUR ---
PT IN ROOM. NO NEW CONCERNS NOTED AT THIS TIME.
--- NOTE | 2021-06-12 12:00 | NUR ---
PT STILL AAOX4, PT READY TO EAT LUNCH, BP ELEVATED SOME MORE, OTHER V/S WDL. NO NEW CONCERNS NOTED WITH SECOND ASSESSMENT TODAY. WILL CONTINUE TO MONITOR.
--- NOTE | 2021-06-12 15:26 | NUR ---
PT IS SHOWERING, BED LINNENS WERE CHANGED. NO NEW CONCERNS NOTED AT THIS TIME.
--- NOTE | 2021-06-12 18:10 | NUR ---
SINCE START OF SHIFT PT HAS REMAINED AAOX4. PO INTAKE IS GOOD, BP WAS ELEVATED TODAY AND MD KHAN IS AWARE. BP MED WAS ADDED. OTHER V/S ARE WDL SO FAR. PT WAS COOPERATIVE WITH MEDS ALL SHIFT. PT SHOWERED ALSO. LOBES ARE CLEAR, NO EDEMA PRESENT. NO NEW CONCERNS WERE NOTED THIS SHIFT AT ALL.
--- NOTE | 2021-06-12 19:20 | NUR ---
SHIFT REPORT RECEIVED FROM SIMBA FORBES. PT RESTING IN BED, NO NEEDS AT THIS TIME. CALL LIGHT IN REACH.
--- NOTE | 2021-06-12 21:45 | NUR ---
ASSESSMENT, VS AND I&O COMPLETED. GCS 15, A&O X4. LUNGS CLEAR, HEART TONES REGULAR. PT DENIES SOB. CNG WNL, NO COVERAGE NEEDED. ABD SOFT, NONTENDER, BOWEL TONES ACTIVE. ICE WATER PROVIDED. NO OTHER NEEDS. CALL LIGHT IN REACH.
--- NOTE | 2021-06-12 23:24 | NUR ---
pt called to say she recently voided, in to empty the catch hat for pt, no further needs
--- NOTE | 2021-06-13 00:25 | NUR ---
in to assist pt with empting urine, theraputic chatting with pt, no further needs
--- NOTE | 2021-06-13 02:44 | NUR ---
PT RESTING IN BED, EYES CLOSED. RR EVEN, UNLABORED. CALL LIGHT IN REACH.
--- NOTE | 2021-06-13 06:58 | NUR ---
ASSESSMENT, VS AND I&O COMPLETED. PT DENIES PAIN. GCS 15, A&O X4. LUNGS CLEAR, HEART TONES REGULAR. ABD SOFT, NONTENDER, BOWEL TONES ACTIVE. CMS INTACT. PT DENIES SOB. NO OTHER NEEDS. CALL LIGHT IN REACH.
--- NOTE | 2021-06-13 08:00 | NUR ---
RECEIVED REPORT AROUND 0700, PT WAS AWAKE IN BED AND HAD NO NEEDS AT THAT TIME. BG BEFORE BREAKFAST WAS 74, NO INSULIN WAS GIVEN. PT AAOX4, HEART MURMUR PRESENT (NOT NEW), PT DENIES SOB, PT ON RA, ABD SOUNDS PRESENT, NO EDEMA NOTED, PO INTAKE IS GOOD AND SO IS HER OUTPUT. BP A BIT ELEVATED, OTHER V/S WDL.
--- NOTE | 2021-06-13 10:00 | NUR ---
PT TAKING A SHOWER AT THIS TIME AND GETTING READY FOR D/C.
== END 2021-06-13 11:45 | disposition home or self-care (01) | DRG 640 ==
LOC: ED 09:20 → MS 16:23
PROVIDERS: ADMIT Internal Medicine; ATTEND Internal Medicine
DX: E86.0 Dehydration (principal); U07.1 COVID-19; G93.41 Metabolic encephalopathy; N18.4 Chronic kidney disease, stage 4 (severe); R47.01 Aphasia; B19.20 Unspecified viral hepatitis C without hepatic coma; E11.22 Type 2 diabetes mellitus with diabetic chronic kidney disease; K74.60 Unspecified cirrhosis of liver; K21.9 Gastro-esophageal reflux disease without esophagitis; Z98.890 Other specified postprocedural states; Z79.52 Long term (current) use of systemic steroids; Z79.899 Other long term (current) drug therapy; Z79.4 Long term (current) use of insulin
CPT/HCPCS: 51701; 70450; 71045; 80053; 80500; 81001; 82140; 85025; 87088; 99285-25; C9803; J1815; J7030; U0003

== ENCOUNTER 2021-07-25 09:06 | Inpatient (IN) | payer MEDICARE, MEDICAID ==
[~2021-07-25] VITALS: Ht 160 cm; Wt 67.4 kg
[~2021-07-25 09:06] MED LIST changes: +COLCRYS0.6 MG PO
--- OUTSIDE RECORDS SUMMARY | 2021-07-25 09:10 | XMS ---
[facility] Notification: LAURIE VELARDE Security Circulating Process Inspector Events No recent Security Events currently on file CRITERIA MET - TAP CARE PROVIDERS FELIX LOUIE [facility] 10/17/2016-Current PHONE: [phone] Luciano has no Care Guidelines for this patient. E.Mindy VISIT COUNT (12 MO.) 1 [facility] OCTAVIA Garcia TOTAL 5 NOTE: Visits indicate total known visits. ED/C VISIT TRACKING (12 MO.) 2021 09:07 OCTAVIA Whitaker TYPE: Emergency COMPLAINT: - ALTERED LOC 06/11/2021 09:20 [facility] [place] TYPE: Emergency COMPLAINT: - ALTERED MENTAL STATUS, NO EATING/DRINK, FATIGUE 05/10/2021 15:22 [facility] Fatuma RICHARDSON TYPE: Emergency DIAGNOSES: - Other ascites - fluid drained from stomach - Abdominal Pain 05/03/2021 17:50 [facility] [place] TYPE: Emergency COMPLAINT: - DOG BITE DIAGNOSES: - Other chcf (current) drug therapy - Type 2 diabetes mellitus without complications - Open bite, left lower leg, initial encounter - long-term (current) use of opiate analgesic - Plantar fascial fibromatosis - long-term (current) use of insulin - Gout, unspecified - Open bite, left lower leg, initial encounter - Bitten by dog, initial encounter 09/29/2020 13:49 [facility] [place] TYPE: Emergency COMPLAINT: - FALL, FACE, LEFT ARM/SIDE PAIN DIAGNOSES: - Unspecified intracranial injury with loss of consciousness of 30 minutes or less, initial encounter - Nondisplaced fracture of head of left radius, initial encounter for closed fracture - Other intermediate manager (current) drug therapy - Type 2 diabetes mellitus without complications - terminal operations supervisor (current) use of insulin - Unspecified intracranial injury with loss of consciousness of 30 minutes or less, initial encounter - Contusion of left front wall of thorax, initial encounter - Fall (on) (from) unspecified stairs and steps, initial encounter - Nondisplaced fracture of head of left radius, initial encounter for closed fracture INPATIENT VISIT TRACKING (12 MO.) 06/11/2021 16:[address] [facility] [place] TYPE: Medical Surgical COMPLAINT: - ENCEPHALOPATHY DIAGNOSES: - terminal operations supervisor (current) use of insulin - Chronic kidney disease, stage 4 (severe) - Unspecified cirrhosis of liver - COVID-19 - Other specified postprocedural states - Gastro-esophageal reflux disease without esophagitis - Chronic kidney disease, stage 4 (severe) - Dehydration - Aphasia - COVID-19 - Unspecified viral hepatitis C without hepatic coma - Unspecified cirrhosis of liver - Unspecified viral hepatitis C without hepatic coma - Type 2 diabetes mellitus with diabetic chronic kidney disease - Metabolic encephalopathy - Gastro-esophageal reflux disease without esophagitis - Type 2 diabetes mellitus with diabetic chronic kidney disease - Other specified postprocedural states - Other intermediate manager (current) drug therapy - Metabolic encephalopathy - terminal operations supervisor (current) use of systemic steroids - Aphasia - long-term (current) use of systemic steroids - long-term (current) use of insulin - Other chcf (current) drug therapy [email or web address]
--- NOTE | 2021-07-25 13:45 | NUR ---
THIS RN BROUGHT pt VIA STRETCHER FROM ED TO CCU. 2PA TO MOVE FROM STRETCHER TO BED. THIS RN IN ROOM TO DO ADMISSION.
--- NOTE | 2021-07-25 14:30 | NUR ---
pt OPENING EYES TO VOICE AND SPONTANEOUS, DOES NOT FOLLOW INSTRUCTIONS. NO VERBALIZATIONS. pt REPOSITIONS SELF, NORMAL STRENGTH. LACTULOSE ENEMA GIVEN pt PULLED AWAY, SECOND RN TO ASSIST WITH POSITIONING. pt RESTING ON BACK. NASSAR DRAINING DILUTE YELLOW URINE. BED ALARM ON. CURTAIN OPEN TO NURSES STATION.
--- NOTE | 2021-07-25 16:27 | EKG ---
[facility] [address] [place], [place] [address] Signed Normal sinus rhythm Normal ECG When compared with ECG of 27-SEP-2019 14:10, Questionable change in QRS axis Confirmed by RAUL KHAN MD ([id number]) on 07/25/2021 4:26:57 PM Electronically Signed By: RAUL KHAN MD 07/25/21 1627 PATIENT NAME: LAURIE VELARDE RAFAEL Electrocardiogram DATE OF : 65 PHYSICIAN: RAUL KHAN MD REPORT #: [id number] REPORT IS CONFIDENTIAL AND NOT TO BE RELEASED WITHOUT AUTHORIZATION
--- NOTE | 2021-07-25 18:07 | NUR ---
UPDATE GIVEN TO DAUGHTER JANAK.
--- NOTE | 2021-07-25 19:06 | NUR ---
ENEMA GIVEN, SOME RETURN. pt SITTING UP RIGID IN BED. VIRGILIO LOGAN IN ROOM 1:1. ATTEMPTED TO GET UP TO BSC. pt SHAKY AND RIGID. ABLE TO STAND AFTER MUCH COACHING. UNABLE TO SIT ON BSC. pt WALKED 2PA TO TOILET UNABLE TO SIT AGAIN. REPEATS "FUCK" AND "SHIT" AT INTERVALS UNABLE TO SAY ANYTHING ELSE. BACK TO BED. LAYING IN BED. BED ALARM ON. CURTAIN OPEN TO NURSES STATION.
--- NOTE | 2021-07-25 19:28 | NUR ---
Report recieved, care of patient assumed at this time.
--- NOTE | 2021-07-25 21:10 | NUR ---
pt given lactulose suppository with the assistance of two Rn's. pt confused, disoriented, and not following commands. impulsive, swinging arms in the air and attempting to get out of bed over the side rail. pt up to bedside commode. 2000 mls of liquid stool into commode. bed change completed. pt back in bed, side rails up for safety. bed alarm in place. iv fluids infusing. will continue to monitor.
--- NOTE | 2021-07-26 02:57 | NUR ---
IN ROOM TO CHECK BLOOD GLUCOSE. PT AWAKENS TO VOICE BUT FALLS BACK ASLEEP. ASSESSMENT COMPLETED. IV FLUIDS CONTINUE TO INFUSE. CALL LIGHT WITHIN REACH BED ALARM IN PLACE.
--- NOTE | 2021-07-26 07:49 | NUR ---
REPORT RECEIVED FROM NIGHTSHIFT RN, WILL CONTINUE PLAN OF CARE.
--- NOTE | 2021-07-26 08:31 | NUR ---
PATIENT RESTING IN BED, WOKE TO VOICE. GLUCOSE CHECKED, NASSAR EMPTIED. VITALS AND I&OS CHARTED. WARM BLANKET PROVIDED. NO OTHER NEEDS AT THIS TIME
--- NOTE | 2021-07-26 09:38 | NUR ---
THIS RN IN TO ASSESS PT AND ADMINISTER SCHEDULED MEDICATIONS, PT LAYING IN BED AWAKE. PT WAS ORIENTED ONLY TO SELF AT THIS TIME BUT ABLE TO FOLLOW SIMPLE COMMANDS WHEN ASKED. LUNGS CLEAR IN UPPER LOBES AND CLEAR/DIM IN BASES BILATERALLY, BOWEL TONES ACTIVE. PT ABLE TO TAKE SIPS OF WATER AT THIS TIME WITHOUT DIFFICULTY. LACTULOSE ENEMA WAS THEREFORE HELD, INSULIN ALSO HELD HER BLOOD SUGAR WAS 107. DR. KHAN UPDATED IN PERSON ON PT'S ABILITY TO TAKE PO LIQUIDS, NEW ORDERS TO BE PLACED BY DR KHAN. WILL CONTINUE PLAN OF CARE. CALL LIGHT IN REACH, BED IN LOWEST POSITION, IVF INFUSING ORDERED.
--- NOTE | 2021-07-26 10:15 | NUR ---
BREAKFAST ORDER TAKEN FOR PT AT THIS TIME. PT MORE ALERT AND RESPONSIVE AT THIS TIME BUT CAN BE SLOW TO RESPOND STILL. PT RESTING IN BED, CALL LIGHT IN REACH, IVF TO BE DC'D, WILL CONTINUE PLAN OF CARE.
--- NOTE | 2021-07-26 11:39 | NUR ---
THIS RN IN TO ADMINISTER SCHEDULED MEDICATIONS. PT LAYING IN BED RESTING AND AWAKE. PT STILL SLOW TO RESPOND AT TIMES AND STILL STATING FEW WORD ANSWERS FOR QUESTIONS. SCHEDULED PO LACTULOSE ADMINISTERED AT THIS TIME, PT REFUSED PO PROTONIX AND XIFAXAN DESPITE CLARIFYING THIER USAGE AND PURPOSE. IVF DC'D ORDERED, PT NOW SALINE LOCKED. NASSAR ALSO DC'D PER ORDERS, CATHETER INTACT, PT TOLERATED REMOVAL OF NASSAR WELL. PT NOW SITTING UP IN BED EATING BREAKFAST, PT NOTED TO HAVE TREMORS WHEN USING SILVERWARE AND BEING SENSITIVE TO TOUCH. DR. KHAN UPDATED ON PT CONDITION AT THIS TIME. CALL LIGHT IN REACH, BED IN LOWEST POSITION, WILL CONTINUE PLAN OF CARE.
--- NOTE | 2021-07-26 12:50 | NUR ---
RESPONDED TO BED ALARM, PT WAS SITTING UP AT THE SIDE OF THE BED. PT DENIED TRYING TO GET OUT OF BED AND STATED YES WHEN ASKED IF SHE WAS JUST SITTING UP AT THE SIDE. PT CALL LIGHT PLACED IN REACH AND INSTRUCTED TO USE IT IF SHE NEEDED ASSISTANCE. PT STATED SHE WOULD. PT NOTED TO RESPOND APPROPRIATELY BUT STILL ANSWER WITH ONLY A FEW WORDS. PT DENIES NEEDING TO HAVE A BM AT THIS TIME. PT NOW SITTING A THE SIDE OF THE BED, CALL LIGHT IN REACH, BED IN LOWEST POSITION. WILL CONTINUE PLAN OF CARE.
--- NOTE | 2021-07-26 14:38 | NUR ---
THIS RN IN TO ASSESS PT. PT SITTING UP IN BED AWAKE AND ALERT. PT ORIENTED ONLY TO SELF AT THIS TIME, PT STILL UNABLE TO RECALL DATE AND SURROUNDINGS. PT COMMUNICATING AND ANSWERING MORE APPROPRIATELY AND NOT SHORT BUT STILL SLOW TO RESPOND AT TIMES. PT ASSESSED AT THIS TIME, PULSES STRONG, BOWEL TONES ACTIVE, LUNGS CLEAR. PT DENIES THE NEED TO VOID OR HAVE A BM AT THIS TIME WHEN ASKED. PT REPORTS NO FURTHER NEEDS AT THIS TIME WHEN ASKED, WATER AT THE BEDSIDE TABLE. WILL CONTINUE PLAN OF CARE. CALL LIGHT IN REACH, BED IN LOWEST POSITION.
--- NOTE | 2021-07-26 15:25 | NUR ---
THIS RN IN TO CHECK ON PT. PT SITTIN UP IN BED AWAKE DRINKING HER SODA. PT ENCOURAGED TO USE THE BEDSIDE COMMODE AT THIS TIME AND THEN SIT OVER ON THE BEDSIDE RECLINER, PT WAS WILLING TO DO SO. PT STOOD UP WITH SOME ASSISTANCE AND WAS ABLE TO PIVOT TO THE BEDSIDE COMMODE TO VOID AND HAVE A LOOSE STOOL. PT ASSISTED UP WHILE SHE CLEANED HERSELF, NEW BRIEFS PLACED ON PT AFTERWARDS. PT THEN ASSISTED FROM THE COMMODE TO THE RECLINER, PT REQUIRED SOME ASSISTANCE TO STAND AGAIN AND WAS ABLE TO TAKE A FEW STEPS AND PIVOT TO THE RECLINER. PT THEN RECLINED. PT STATED SHE WAS COLD AT THIS TIME, WARM BLANKETS PROVIDED AT THIS TIME. PT NOTED TO STILL ANSWER IN SHORT PHRASES AND TAKE A WHILE TO RESPOND APPROPRIATELY OR COME UP WITH ANSWERS TO QUESTIONS. PT NOW RESTING ON THE RECLINER, CALL LIGHT IN REACH, BEDSIDE TABLE AT HER SIDE WITH WATER PRESENT. PT REPORTS NO FURTHER NEEDS WHEN ASKED AT THIS TIME, WILL CONTINUE PLAN OF CARE. CALL LIGHT IN REACH.
--- NOTE | 2021-07-26 15:43 | NUR ---
REPORT GIVEN TO JILLIAN FRITZ AT THIS TIME, WILL CONTINUE PLAN OF CARE.
--- NOTE | 2021-07-26 16:55 | NUR ---
THIS RN IN TO TRANSFER PT. PT LAYING IN BED RESTING AT THIS TIME ON THE BEDSIDE RECLINER. PT REPORTS NO NEEDS WHEN ASKED. PT TAKEN TO MS ROOM 109 WITH HER BELONGINGS AT THIS TIME. ISOLATION PRECAUTIONS FOLLOWED. PT NOW IN ROOM 109 RESTING IN THE RECLINER, ANDREI FRITZ ORDERING DINNER FOR PT AT THIS TIME. PT REPORTS NO FURTHER NEEDS AT THIS TIME, ANDREI FRITZ TO CONTINUE PLAN OF CARE.
--- NOTE | 2021-07-26 18:27 | NUR ---
New admit to the floor. Patient awake sitting up in chair eating dinner. Patient alert to self. Patient denies pain at this time. Oriented patient to room and call light. No current needs.
--- NOTE | 2021-07-26 19:40 | NUR ---
REPORT RECEIVED FROM ANDREI FRITZ. ISOLATION PRECAUTIONS. pt UP TO DOORWAY AND BACK TO BED, TALKING ON PHONE.
--- NOTE | 2021-07-26 21:30 | NUR ---
PT CALLED, REQUESTED ICE WATER, WANTED HER TOLIET CLEANED, CLEANED UP BM ON FLOOR, ON TOILET, WELL WALL, SMALL AMOUNT LIQUID. WARM BLANKET GIVEN WELL.
--- NOTE | 2021-07-26 21:55 | NUR ---
REQUESTED MORE ICEWATER, GIVEN.
--- NOTE | 2021-07-26 22:45 | NUR ---
LUNCH BOX AND HOT TEA PROVIDED. ICE WATER REFILLED. PATIENT WAS LOOKING FOR HER EYE GLASSES. THIS REGISTERED DIETETIC TECHNICIAN CAN NOT FIND IT IN THE ROOM. BUTTON RIVETER AND PRIMARY RN NOTIFIED. WE'LL FIND OUT FROM THE DAY SHIFT NURSES.
--- NOTE | 2021-07-26 22:57 | NUR ---
pt ASSESSMENT COMPLETE. pt ORIENTED TO PERSON, THIS RN (FORMER COLLEGUE), PLACE, REORIENTATION TO DATE PROVIDED. pt COOPERATIVE WITH CARES. REQUESTING FOOD, DOREEN GROVES TO GET pt MEAT AND CHEESE PLATE. FIELD START IV LEAKING, PAINFUL TO FLUSH, DC'D WNL. NEW IV STARTED BY ANDREI ANDERS RIGHT FOREARM WNL. pt DENIES PAIN. BOWEL TONES HYPERACTIVE X 4, ABD SOFT, DISTENDED. CALL LIGHT IN REACH. LIGHTS OFF IN ROOM.
--- NOTE | 2021-07-27 00:06 | NUR ---
CALL LIGHT ANSWERED. TV REMOTE PROVIDED. NO ADDITIONAL NEEDS. CALL LIGHT IN REACH.
--- NOTE | 2021-07-27 02:30 | NUR ---
CHECKED ON pt. RESTING IN BED ON LEFT SIDE. BREATHING EQUAL AND UNLABORED. LIGHTS OFF IN ROOM.
--- NOTE | 2021-07-27 05:02 | NUR ---
CALL LIGHT ANSWERED. ICE WATER PROVIDED REQUESTED. VSS. pt IS MORE ALERT THIS MORNING. ORIENTED TO PERSON, PLACE, DATE, TIME. REORIENATATION TO EVENT. ASSESSMENT COMPLETE. pt ON PHONE WITH SIGNIFICANT OTHER AT THIS TIME. CALL LIGHT IN REACH.
--- NOTE | 2021-07-27 06:14 | NUR ---
pt'S MENTATION CLEAR THIS MORNING. ORIENTED TO ALL EXCEPT EVENT. INDEPENDENT IN ROOM. MULTIPLE BMS. VOIDING WELL. ADEQUATE PO INTAKE. IV SL. USING CALL LIGHT APPROPRIATELY.
--- NOTE | 2021-07-27 08:20 | NUR ---
PATIENT SITTING UP IN BED FOR BREAKFAST, REFUSED CHAIR. CALL LIGHT IN REACH. NO FURTHER NEEDS AT THIS TIME.
--- NOTE | 2021-07-27 08:50 | NUR ---
Spoke with pt and she states she lives in an apartment with her sister Sister has found an apartment in the same complex to move into. Pt feels she is capable of living alone and is able to complete ADLS and take her medications. She has a car and drives herself. She does not use any DME. Plans on dc to home on discharge and sister will assist her as needed. She does occassionally use the food bank and uses [facility] for energy assistance. She denies any needs.
--- NOTE | 2021-07-27 11:11 | NUR ---
PATIENT IND. IN ROOM. PATIENT SHOWERED IND. SHOWER SUPPLIES, ORAL CARE SUPPLIES PROVIDED. CALL LIGHT IN REACH. NO FURTHER NEEDS AT THIS TIME.
== END 2021-07-27 12:06 | disposition home or self-care (01) | DRG 442 ==
LOC: ED 09:06 → CCU 13:07 → MS 07-26 16:55
PROVIDERS: ADMIT Internal Medicine; ATTEND Internal Medicine
DX: K72.00 Acute and subacute hepatic failure without coma (principal); K76.6 Portal hypertension; N18.4 Chronic kidney disease, stage 4 (severe); K74.60 Unspecified cirrhosis of liver; B19.20 Unspecified viral hepatitis C without hepatic coma; E11.22 Type 2 diabetes mellitus with diabetic chronic kidney disease; K21.9 Gastro-esophageal reflux disease without esophagitis; Z79.899 Other long term (current) drug therapy; Z79.4 Long term (current) use of insulin
CPT/HCPCS: 51702; 70450; 70496; 70498; 71045; 80053; 80500; 81001; 82140; 83690; 83735; 84484; 85025; 85610; 85730; 93005; 93010; 99285-25; C9803; J1815; J7121; Q3014; U0003

== ENCOUNTER 2021-08-17 15:05 | Emergency (ER) | payer MEDICARE, MEDICAID ==
[~2021-08-17] VITALS: Ht 160 cm; Wt 68.1 kg
[~2021-08-17 15:05] MED LIST changes: +CEPHALEXIN500 MG PO
--- OUTSIDE RECORDS SUMMARY | 2021-08-17 15:08 | XMS ---
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 E.Mindy VISIT COUNT (12 MO.) [address] [place] [address] TOTAL 10 NOTE: Visits indicate total known visits. ED/UCC VISIT TRACKING (12 MO.) 08/17/2021 15:06 [facility] TYPE: Emergency COMPLAINT: - LOWER BACK/ABD PAIN [facility] DIAGNOSES: - Abdominal Pain - Other ascites - Liver disease, unspecified - needs fluid drained from stomach 08/13/2021 17[facility] DIAGNOSES: - periantesis - Other ascites - Abdominal Distension 08/06/2021 11:14 [facility] [place] TYPE: Emergency DIAGNOSES: - Abdominal Distension; SOB - Other ascites - Medical Problem (Minor) - Hepatic failure, unspecified without coma 07/31/2021 13:13 [facility] [place] TYPE: Emergency COMPLAINT: - WEAKNESS 2021 09:07 [place] [place] TYPE: Emergency COMPLAINT: - ALTERED LOC 06/11/2021 09:20 [facility] [place] TYPE: Emergency COMPLAINT: - ALTERED MENTAL STATUS, NO EATING/DRINK, FATIGUE 05/10/2021 15:[facility] DIAGNOSES: - Other ascites - fluid drained from stomach - Abdominal Pain 05/03/2021 17:50 [facility] [place] TYPE: Emergency COMPLAINT: - DOG BITE DIAGNOSES: - Other custodial (current) drug therapy - Type 2 diabetes mellitus without complications - Open bite, left lower leg, initial encounter - [facility] (current) use of opiate analgesic - Plantar fascial fibromatosis - [facility] (current) use of insulin - Gout, unspecified [...] initial encounter for closed fracture - Other custodial (current) drug therapy - Type 2 diabetes mellitus without complications - termite treater helper (current) use of insulin - Unspecified intracranial injury with loss of consciousness of 30 minutes or less, initial encounter - Contusion of left front wall of thorax, initial encounter - Fall (on) (from) unspecified stairs and steps, initial encounter - Nondisplaced fracture of head of left radius, initial encounter for closed fracture INPATIENT VISIT TRACKING (12 MO.) 07/31/2021 17:24 [facility] [place] TYPE: Observation COMPLAINT: - HEPATIC ENCEPHALOPATHY DIAGNOSES: - COVID-19 - Urinary tract infection, site not specified - Unspecified viral hepatitis C without hepatic coma - Metabolic encephalopathy - termite treater helper (current) use of insulin - Type 2 diabetes mellitus with diabetic chronic kidney disease - Hepatic failure, unspecified without coma - Chronic kidney disease, stage 4 (severe) 2021 13:07 [facility] [place] TYPE: Medical Surgical COMPLAINT: - HEPATIC ENCEPHALOPATHY DIAGNOSES: - termite treater helper (current) use of insulin - Portal hypertension - Chronic kidney disease, stage 4 (severe) - Other equipment operator intermodal yard (current) drug therapy - Acute and subacute hepatic failure without coma - Type 2 diabetes mellitus with diabetic chronic kidney disease - Unspecified cirrhosis of liver - Unspecified viral hepatitis C without hepatic coma - Gastro-esophageal reflux disease without esophagitis 06/11/2021 16:[address] [facility] [place] TYPE: Medical Surgical COMPLAINT: - ENCEPHALOPATHY DIAGNOSES: - termite treater helper (current) use of insulin - Chronic kidney [...] - Other specified postprocedural states - Other equipment operator intermodal yard (current) drug therapy - Metabolic encephalopathy - termite treater helper (current) use of systemic steroids - Aphasia - termite treater helper (current) use of systemic steroids - [facility]FP (current) use of insulin - Other equipment operator intermodal yard (current) drug therapy [email or web address]
== END 2021-08-17 19:41 | disposition home or self-care (01) ==
LOC: ED 15:05
DX: R10.9 Unspecified abdominal pain (principal); E87.6 Hypokalemia; E11.9 Type 2 diabetes mellitus without complications; K21.9 Gastro-esophageal reflux disease without esophagitis; Z79.4 Long term (current) use of insulin; Z79.899 Other long term (current) drug therapy
CPT/HCPCS: 80053; 81001; 82140; 83690; 85007; 85025; 85610; 96374; 99284-25; J2405

== ENCOUNTER 2021-08-26 11:48 | Inpatient (IN) | payer MEDICARE, MEDICAID ==
[~2021-08-26] VITALS: Ht 160 cm; Wt 75.1 kg
--- OUTSIDE RECORDS SUMMARY | 2021-08-26 11:50 | XMS ---
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 E.D. VISIT COUNT (12 MO.) 1 [facility] 4 [facility] 7 [facility]. TOTAL 12 NOTE: Visits indicate total known visits. ED/UCC VISIT TRACKING (12 MO.) 08/26/2021 11:48 [facility] Whitaker TYPE: Emergency COMPLAINT: - ALOC 08/24/2021 10:43 [facility] TYPE: Emergency COMPLAINT: - Abdominal mass / distenstion_PARACENTESIS 08/17/2021 15:06 OCTAVIA Whtiaker TYPE: Emergency COMPLAINT: - LOWER BACK/ABD PAIN DIAGNOSES: - Unspecified abdominal pain - Type 2 diabetes mellitus without complications - Gastro-esophageal reflux disease without esophagitis - Somnolence - penitentiary (current) use of insulin - Other intermediate project manager (current) drug therapy - Hypokalemia 08/14/2021 10:32 [facility] Collin RICHARDSON TYPE: Emergency DIAGNOSES: - Abdominal Pain - Other ascites - Liver disease, unspecified - needs fluid drained from stomach 08/13/2021 17:58 [facility] Collin RICHARDSON TYPE: Emergency DIAGNOSES: - periantesis - Other ascites - Abdominal Distension 08/06/2021 11:14 [facility] Collin RICHARDSON TYPE: Emergency DIAGNOSES: - Abdominal Distension; SOB - Other ascites - Medical Problem (Minor) - Hepatic failure, unspecified without coma 07/31/2021 13:13 [facility] [place] TYPE: Emergency COMPLAINT: - WEAKNESS 2021 09:07 [facility] [place] TYPE: Emergency COMPLAINT: - ALTERED LOC 06/11/2021 09:20 [facility] [place] TYPE: Emergency COMPLAINT: - ALTERED MENTAL STATUS, NO EATING/DRINK, FATIGUE 05/10/2021 15:22 [facility] Luz RICHARDSON TYPE: Emergency DIAGNOSES: - Other ascites - fluid drained from stomach - Abdominal Pain 05/03/2021 17:50 [facility] [place] TYPE: Emergency COMPLAINT: - DOG BITE DIAGNOSES: - Other intermediate project manager (current) drug therapy - Type 2 diabetes mellitus without complications - Open bite, left lower leg, initial encounter - penitentiary (current) use of opiate analgesic - Plantar fascial fibromatosis - long term care phlebotomist (current) use of insulin - Gout, unspecified [...] encounter for closed fracture - Other intermediate project manager (current) drug therapy - Type 2 diabetes mellitus without complications - long term care phlebotomist (current) use of insulin - Unspecified intracranial [...] without hepatic coma - Metabolic encephalopathy - long term care phlebotomist (current) use of insulin - Type 2 diabetes mellitus with diabetic chronic kidney disease - Hepatic failure, unspecified without coma - Chronic kidney disease, stage 4 (severe) 2021 13:07 [facility] [place] TYPE: Medical Surgical COMPLAINT: - HEPATIC ENCEPHALOPATHY DIAGNOSES: - long term care phlebotomist (current) use of insulin - Portal hypertension - Chronic kidney disease, stage 4 (severe) - Other senior living (current) drug therapy - Acute and subacute hepatic failure without coma - Type 2 diabetes mellitus with diabetic chronic kidney disease - Unspecified cirrhosis of liver - Unspecified viral hepatitis C without hepatic coma - Gastro-esophageal reflux disease without esophagitis 06/11/2021 16:23 [facility] [place] TYPE: Medical Surgical COMPLAINT: - ENCEPHALOPATHY DIAGNOSES: - long term care phlebotomist (current) use of insulin - Chronic kidney [...] Other specified postprocedural states - Other intermediate project manager (current) drug therapy - Metabolic encephalopathy - penitentiary (current) use of systemic steroids - Aphasia - long term care phlebotomist (current) use of systemic steroids - long term care phlebotomist (current) use of insulin - Other senior living (current) drug therapy [email or web address]
--- NOTE | 2021-08-26 14:30 | NUR ---
PT ARRIVED TO FLOOR VIA STRETCHER, VSS ON RA
--- NOTE | 2021-08-26 15:30 | NUR ---
CHARGE NURSE ABUNDIO IN ROOM TO COMPLETE ADMISSION, THIS NURSE IS CURRENTLY OCCUPIED IN ANOTHER ROOM
--- NOTE | 2021-08-26 16:00 | NUR ---
ATTEMPTED TO GIVE PT DOSE OF LACTULOSE ORALLY BUT PT REFUSED, SWATTING MEDICINE AWAY AND CLAMPING MOUTH SHUT. PROVIDER INFMORMED, MEDICATION ORDERED RECTALLY.
--- NOTE | 2021-08-26 17:00 | NUR ---
PT'S DAUGHTER CALLED AND NOTIFIED PT WOULD HAVE TO BE GIVEN LACTULOSE RECTALLY SHE WAS REFUSING TO TAKE IT ORALLY, DAUGHTER UNDERSTANDING, STATES "DO WHAT YOU NEED TO DO, TO MAKE HER BETTER". RN NAKIA, STUDENT NURSE ELADIO, AND [facility] INSTRUCTOR JUAN LUIS IN ROOM TO ASSIST, PT ADMINISTERD LACTULOSE PER RECTUM PT TOLERATED WELL.
--- NOTE | 2021-08-26 17:31 | NUR ---
MED REC COMPLETE
--- NOTE | 2021-08-26 18:00 | NUR ---
pt resting safely in bed w/ call light in reach and bed alarm on. RR even and unlabored
--- NOTE | 2021-08-26 19:00 | NUR ---
SHIFT REPORT RECEIVED FROM ROSSANA FORBES. PT RESTING IN BED. IV FLUIDS INFUSING PER ORDER.
--- NOTE | 2021-08-26 22:31 | NUR ---
PT DECLINE ORAL LACTULOSE, RECTAL MED PROVIDED. ASSESSMENT COMPLETED. PT NOT ORIENTED TO ANYTHING. DOES FOLLOW SOME COMMANDS. LUNGS CLEAR, HEART TONES REGULAR. UNABLE TO ASSESS ABD PT REFUSES. CMS INTACT. IV WNL. PT IS VERY RESISTIVE TO MEDICATIONS, VERBALLY AGGRESSIVE AT TIME. BED ALARMS ON, CALL LIGHT IN REACH.
--- NOTE | 2021-08-26 22:45 | NUR ---
BED ALARM SET OFF, PT IS ASSISTED TO THE TOILET, NEW ATTENDS PROVIDED, JORGITO PARSONS/LOVE BM NOTED IN THE TOILET, RN INFORMED, PT SITS ON THE COUCH, THIS CARE TRANSPORT NURSE ALLOWING PT TO SIT BEFORE RETURNING TO BED, ALARM SET, x4 RAILS UP, NO FURTHER NEEDS AT THIS TIME
--- NOTE | 2021-08-27 00:04 | NUR ---
PT DECLINES SCHEDULED ORAL MED. TURNS FACE AWAY AND SAYS "NO" WHEN OFFERED. CALL LIGHT IN REACH. BED ALARM ON.
--- NOTE | 2021-08-27 02:30 | NUR ---
SCHEDULED RECTAL MED PROVIDED PT REFUSED ORAL VERSION OF MED. ASSESSMENT COMPLETED EXCEPT ABD. PT DISORIENTED TO ALL, FOLLOWS SOME COMMANDS. PT COMBATIVE WITH MEDICATION ADMINISTRATION AND TRIES TO SQUAT IN CORNER OF BATHROOM INSTEAD OF USE TOILET, REDIRECTION WITH PHYSICAL ASSISTANCE IS REQUIRED. PT AMBULATED TO THE BR WELL, SBA. IV WNL, CDI, IV FLUIDS INFUSING PER ORDER. NO OTHER NEEDS AT THIS TIME.
--- NOTE | 2021-08-27 02:45 | NUR ---
ASSISTED PT BACK TO BED FROM THE TOILET, JORGITO LOOSE/LIQ BM NOTED IN TOILET, RN INFORMED, BED ALARM SET, x4 RAILS UP,
--- NOTE | 2021-08-27 06:23 | NUR ---
PT DECLINES ORAL ENULOSE, RECTAL MED PROVIDED. PT AGGITTATED DURING ADMINISTRATION. NEUROLOGICAL PHYSIOTHERAPIST IN ROOM TO COMPLETE VS.
--- NOTE | 2021-08-27 08:37 | NUR ---
PATIENT CAN TELL ME HER NAME BUT NOT SITUATION TIME OR PLACE. CURLING UP ON HER RIGHT SIDE WITH BLANKETS OVER HER. REFUSING TO TAKE PO MEDICATION AND REFUSING TO HAVE BP CUFF PLACED. HELP FROM OTHER STAFF TO COMPLETE VITALS. IN DIRECT SIGHT OF NURSES STATION WITH CURTAINS OPEN. BED ALARM ON.
--- NOTE | 2021-08-27 10:30 | NUR ---
ENEMA OF LACTULOSE GIVEN WITH HELP FROM 2 OTHERS NURSES AND 911 OPERATOR. TOLERATED FAIR. INSTRUCTED ON WHY NEEDING IT. REFUSING TO TAKE LACTULOSE PO. BED RETURNED TO LOW POSITION AND RN AT BEDSIDE.
--- NOTE | 2021-08-27 10:43 | NUR ---
UP TO TOILET, STANDBY ASSIST.
--- NOTE | 2021-08-27 11:38 | NUR ---
HAS CONTINUED TO BE UP SITTING IN CHAIR, CHAIR ALARM IN PLACE AND WORKING. INSTRUCTED TO CALL WHEN UP, CALL LIGHT ON LAP. CURTAINS OPEN AND PATIENT VISIBLE FROM NURSES STATION.
--- NOTE | 2021-08-27 11:50 | NUR ---
up to bathroom, chair alarm sounded, did not call for help. more BM and urine output.
--- NOTE | 2021-08-27 11:57 | NUR ---
back to bed with assist. refusing to take po lactulose.
--- NOTE | 2021-08-27 12:04 | NUR ---
DR Mohan seeing patient.
--- NOTE | 2021-08-27 14:52 | NUR ---
LACTULOSE ENEMA COMPLETED WITH HELP FROM 2 OTHER RN'S. PATIENT TOLERATED POORLY. REFUSING TO TAKE PO LACTULOSE.
--- NOTE | 2021-08-27 16:22 | NUR ---
UP TO CHAIR, CHAIR PRESSURE ALARM ON. IV INFUSING. ANSWERS YES AND NO TO ALL QUESTIONS. CALL LIGHT IN PLACE AND INSTRUCTED ON USE.
--- NOTE | 2021-08-27 16:54 | NUR ---
PATIENT HAS BEEN CONFUSED AND UNABLE TO ANSWER QUESTIONS WELL FOR ASSESSMENT. WAS UNABLE TO REACH DAUGHTER JANAK [phone] AND LEFT A MESSAGE. SHE CALLED BACK WITHIN 15 MINUTES. SHE STATES PATIENT LIVES ALONE IN APARTMENT. SHE DOES HAVE A 4WW AND USES IT WHEN SHE FEELS TIRED. STATES HER AUNT TIANA LIVES CLOSE BY AND HELPS HERE. THEY HAVE A ROUTINE AND SHE KEEPS AN EYE ON PATIENT. SHE STATES WHEN PATIENT IS NOT HAVING AN EPISODE WITH HER LIVER, SHE DOES VERY WELL. PATIENT DRIVES. SHE IS DISABLED. SHE HAS FINANCES TO AFFORD MEDS/FOOD/UTILTIES. SHE STATES SHE IS VERY INDEPENDENT IF HER LIVER LABS ARE OK. SHE DOES NOT KNOW OF ANYTHING NEEDED TO GO HOME SAFELY. SHE KNOWS SHE CAN CALL NURSES TO CHECK ON PATIENT AND SHE WILL LET THEM KNOW IF THEY ARE CONCERNED ABOUT ANDYTING FOR DISCHARGE. THEY WILL PROVIDE TRANSPORTATION HOME FOR HER.
--- NOTE | 2021-08-27 18:48 | NUR ---
AT 1835 ENEMA LACTULOSE GIVEN, PATIENT REFUSING TO TAKE PO. NOW UP TO TOILET TO VOID WITH STANDBY ASSIST.
--- NOTE | 2021-08-27 19:30 | NUR ---
SHIFT REPORT RECEIVED FROM CYNTHIA FORBES. PT RESTING IN BED. BED ALRM ON. CALL LIGHT IN REACH.
--- NOTE | 2021-08-27 20:05 | NUR ---
in to get vitals, trash emptied, no further needs at this time, bed alarm is active
--- NOTE | 2021-08-27 20:23 | NUR ---
ASSESSMENT, VS AND I&O COMPLETED. GCS 14, DISORIENTED TO ALL. PT DECLINES ORAL LACTULOSE, OPTIONS EXPLAINED. PT STATES "NO" TO ALL QUESTIONS. LUNGS CLEAR, HEART TONES REGULAR. 2 SKIN TEARS ON LEFT ARM COVERED BY ALLEVYN. IV WNL, CDI, FLUSHED WELL, IV FLUIDS INFUSING PER ORDER. CMS ITACT. ABD SOFT, NONTENDER, BOWEL TONES ACTIVE. CBG WNL, NO MED PROVIDED. NO OTHER NEEDS. CALL LIGHT IN REACH.
--- NOTE | 2021-08-27 21:33 | EKG ---
[facility] [address] [facility] [place], [place] [address] Signed Normal sinus rhythm Cannot rule out Anterior infarct , age undetermined Abnormal ECG When compared with ECG of 25-JUL-2021 09:20, No significant change was found Confirmed by MELECIO BROOKS DO ([id number]) on 08/27/2021 9:33:16 PM Electronically Signed By: MELECIO BROOKS DO 08/27/21 2133 PATIENT NAME: LAURIE VELARDE RAFAEL Electrocardiogram DATE OF : 65 PHYSICIAN: MELECIO BROOKS DO REPORT #: [id number] REPORT IS CONFIDENTIAL AND NOT TO BE RELEASED WITHOUT AUTHORIZATION
--- NOTE | 2021-08-27 22:30 | NUR ---
PT RESTING IN BED, RR EVEN, UNLABORED. BED ALARM ON. CALL LIGHT IN REACH.
--- NOTE | 2021-08-28 01:30 | NUR ---
PT RESTING IN BED, RR EVEN, UNLABORED. BED ALARM ON. CALL LIGHT IN REACH.
--- NOTE | 2021-08-28 03:16 | NUR ---
ASSESSMENT COMPLETED. PT TAKES ORAL MED WITH GREAT EFFORT TO CONVINCE HER. PT IS ORIENTED TO SELF ONLY. GCS 15. IV FLUIDS COMPLETED. IV WNL. NO OTHER NEEDS AT THIS TIME. CALL LIGHT IN REACH. BED ALARM ON.
--- NOTE | 2021-08-28 04:20 | NUR ---
PT REFUSED MEDICATION. OPTIONS EXPLAINED. NO OTHER NEEDS. CALL LIGHT IN REACH.
--- NOTE | 2021-08-28 06:21 | NUR ---
PT STILL DECLINES ORAL LACTULOSE. RECTAL LACTULOSE PROVIDED, PT TOLERATED POORLY. PT UP TO BATHROOM WITHIN 5 MINUTES OF ADMINISTRATION OF LACTULOSE. PT ANSWERS NAME CORRECTLY. GCS 15. PT NOW SAYING YES AND NO ACCORDING TO HER NEEDS. ASSESSMENT COMPLETED. NO OTHER NEEDS. PT STILL IN BATHROOM.
--- NOTE | 2021-08-28 07:25 | NUR ---
report received from shift supervisor film processing, patient resting in bed. alarm on and curtains open. visible from nurses station.
--- NOTE | 2021-08-28 08:04 | NUR ---
Used the call light to ask for breakfast. was willing to drink her first dose of lactulose. laying in bed. Report received from shift supervisor film processing.
--- NOTE | 2021-08-28 10:36 | NUR ---
PAINFUL WITH FLUSHING. WILL DC AND LOOK FOR NEW IV.
--- NOTE | 2021-08-28 10:39 | NUR ---
CAN TELL ME NAME AND DATE OF . ANSWERS QUESTIONS WITH YES AND NO ANSWERS APPROPRIATELY. KNOWS WHERE SHE IS. UP IN CHAIR WITH CHAIR ALARM ON. BREAKFAST FINISHED, DID TAKE HER LACTULOSE ORALLY. CALL LIGHT IN REACH. TV ON AND SHE IS WATCHING.
--- NOTE | 2021-08-28 12:44 | NUR ---
daughter in room, patient not very interactive. mostly talking with 1-2 word sentences. and yes and no. water provided.
--- NOTE | 2021-08-28 14:57 | NUR ---
left hand IV removed because was not able to flush. pressure dressing applied for 5 minutes and then removed. tolerated well.
--- NOTE | 2021-08-28 19:00 | NUR ---
SHIFT REPORT RECEIVED FROM CYNTHIA FORBES. PT SITTING UP IN BED, TALKING WITH SISTER. NO NEEDS AT THIS TIME. CALL LIGHT IN REACH.
--- NOTE | 2021-08-28 19:28 | NUR ---
THIS MORNING I SET PATIENT UP FOR A SHOWER SOMETIME TODAY. WHEN I ASKED HER SHE SAID SHOWER TOMORROW. PATIENT HAS A FAMILY MEMBER IN VISTING HER. ALSO DID HER BLOOD SUGAR CHECK BEFORE DINNER.
--- NOTE | 2021-08-28 22:12 | NUR ---
ASSESSMENT, VS AND I&O COMPLETED. PT HAS HAD MANY BMs TODAY, ENULOSE NOT GIVEN. SCHEDULED MEDS PROVIDED. LUNGS CLEAR, HEART TONES REGULAR. ABD FIRM, MODERATELY DISTENDED, BOWEL TONES ACTIVE. SCATTERED ABRASIONS AND BRUISING NOTED. IV WNL, CDI, FLUSHED WELL. CMS INTACT. PT DENIES PAIN AND NAUSEA. ICE WATER AND HOT TEA PROVIDED. NO OTHER NEEDS AT THIS TIME. CALL LIGHT IN REACH.
--- NOTE | 2021-08-29 | NUR ---
PT RESTING IN BED, WATCHING TV. HOT TEA PROVIDED. CALL LIGHT IN REACH.
--- NOTE | 2021-08-29 02:00 | NUR ---
PT RESTING IN BED. CALL LIGHT IN REACH.
--- NOTE | 2021-08-29 04:01 | NUR ---
PT RESTING IN BED. RR REGULAR, EVEN. CALL LIGHT IN REACH.
--- NOTE | 2021-08-29 06:52 | NUR ---
ASSESSMENT, VS AND I&O COMPLETED. GCS 15, A&O X4. ABD MODERATELY DISTENDED, FIRM, BOWEL TONES ACTIVE.PT DENIES PAIN AND NAUSEA. IV WNL. SCATTERED BRUISING AND SKIN TEARS UNCHANGED. NO OTHER NEEDS. CALL LIGHT IN REACH.
--- NOTE | 2021-08-29 07:18 | NUR ---
Shift report recieved from ANDREI Harrell, pt resting safely in be w/ call light in reach. Pt watching TV, denies any needs at this time, but would like to shower later this morning.
--- NOTE | 2021-08-29 08:30 | NUR ---
PT SITTING UP ON SIDE OF BED EATING BREAKFAST. MORNING ASSESMENT COMPLETE AND SCHEDULED MEDS GIVEN PER PROVIDERS ORDERS. PT DENIES ANY NEEDS AT THIS TIME, CALL LIGHT W/ IN REACH
--- NOTE | 2021-08-29 10:00 | NUR ---
IV MAGNESIUM AND AN ADDITIONAL DOSE OF SODIUM BICARB GIVEN PER PROVIDERS ORDERS. PT DENIES ANY PAIN, NAUSEA, OR NEEDS AT THIS TIME
--- NOTE | 2021-08-29 12:00 | NUR ---
PT SITTING UP ON SIDE OF BED EATING LUNCH, FRESH ICE WATER AND COFFEE GIVEN UPON REQUEST.
--- NOTE | 2021-08-29 12:24 | NUR ---
THE NURSE GOT PATIENT READY TO GO IN SHOWER THIS MORNING. PATIENT DID HER OWN SHOWER. AND SHE GOT HERSELF DRESSED. DID HER BLOOD SUGAR CHECK. FOR BREAKFAST AND LUNCH.
--- NOTE | 2021-08-29 14:00 | NUR ---
pt sitting up in bed watching tv, call light in reach. pt denies any pain, nausea, or needs at this time
--- NOTE | 2021-08-29 16:00 | NUR ---
Pt sitting up in bed watching tv, afternoon dose of sodium bicarb given per provider order, pt denies any needs call light in reach
--- NOTE | 2021-08-29 18:00 | NUR ---
pt resting in be safely w/ call light in reach, pt's son in room to visit pt.
--- NOTE | 2021-08-29 19:05 | NUR ---
SHIFT REPORT RECEIVED FROM ROSSANA FORBES. PT IN BR AT THIS TIME.
--- NOTE | 2021-08-29 21:00 | NUR ---
PT UP TO BR AND BACK TO BED. NO OTHER NEEDS. CALL LIGHT IN REACH.
--- NOTE | 2021-08-29 22:00 | NUR ---
ASSESSMENT, VS AND I&O COMPLETED. PT STATES SHE HAS 7/10 ABD PAIN, PRN PAIN MED PROVIDED. PT STATES HER ABD DISTENTION IS SEVERE AND SHE HAS SOB WITH WALKING TO THE BR AND BACK. GCS 15, A&O X4. LUNGS CLEAR, HEART TONES REGULAR. PT HAS 1+ BLE EDEMA. CMS INTACT X4. BOWEL TONES ACTIVE AND PT HAS HAD 4 BMs TODAY, LACTULOSE HELD. OTHER SCHEDULED MEDS PROVIDED. IV WNL, CDI, FLUSHED WELL. HOT TEA PROVIDED. PT REQUESTS INFORMATION ABOUT ADVANCED DIRECTIVES, PROVIDED. NO OTHER NEEDS AT THIS TIME. CALL LIGHT IN REACH.
--- NOTE | 2021-08-30 | NUR ---
PT CALLS TO REPORT SHE HAD A BM, OUTPUT RECORDED. NO OTHER NEEDS. CALL LIGHT IN REACH.
--- NOTE | 2021-08-30 02:30 | NUR ---
PT RESTING IN BED. CALL LIGHT IN REACH.
--- NOTE | 2021-08-30 04:30 | NUR ---
PT RESTING IN BED. RR EVEN, UNLABORED. CALL LIGHT IN REACH.
--- NOTE | 2021-08-30 06:28 | NUR ---
ASSESSMENT, VS AND I&O COMPLETED. PT ABD UNCHANGED. PT DENIES PAIN AT THIS TIME. IV WNL. SKIN TEARS COVERED. NO OTHER NEEDS. CALL LIGHT IN REACH.
--- NOTE | 2021-08-30 08:19 | NUR ---
PT AWAKE IN BED. UPDATED WHITE BOARD AND TOOK BREAKFAST ORDER. PT REFUSED CHAIR. TIDIED UP ROOM. PT REFUSED LINEN CHANGE.
--- NOTE | 2021-08-30 08:30 | NUR ---
ASSESSED PT BS. DOES NOT NEED COVERAGE. PT ON PHONE WITH MAYBE INSURANCE? WILL COME BACK LATER AND ASSESS.
[2021-08-30] MEDS ORDERED: SODIUM BICARBO650 MG PO (09:41)
--- NOTE | 2021-08-30 10:03 | NUR ---
PT SITTING ON EDGE OF BED. DR IN ROOM TO TALK TO. PT WOULD LIKE TO TAKE SHOWER. REMOVED IV AND ADMINISTERED MORNING MEDS. GIVEN COFFEE. REMOVED DRESSINGS FROM SKIN TEARS ON LEFT ARM PER PT REQUEST. WILL REDRESS ON REQUEST AFTER SHOWER.
--- NOTE | 2021-08-30 10:34 | NUR ---
PT SET UP FOR INDEPENDENT SHOWER. PT STATES SHE DOES NOT NEED ASSISTANCE. SISTER ON HER WAY TO BRING CLOTHES AND TAKE PT HOME.
== END 2021-08-30 11:05 | disposition home or self-care (01) | DRG 441 ==
LOC: ED 11:48 → MS 13:56
PROVIDERS: ADMIT Internal Medicine; ATTEND Internal Medicine
DX: K72.00 Acute and subacute hepatic failure without coma (principal); U07.1 COVID-19; K76.6 Portal hypertension; N18.4 Chronic kidney disease, stage 4 (severe); E87.2 Acidosis; K74.60 Unspecified cirrhosis of liver; E11.22 Type 2 diabetes mellitus with diabetic chronic kidney disease; D73.1 Hypersplenism; E86.0 Dehydration; I12.9 Hypertensive chronic kidney disease with stage 1 through stage 4 chronic kidney disease, or unspecified chronic kidney disease; K21.9 Gastro-esophageal reflux disease without esophagitis; Z86.19 Personal history of other infectious and parasitic diseases; Z98.890 Other specified postprocedural states; Z79.4 Long term (current) use of insulin; Z79.899 Other long term (current) drug therapy
CPT/HCPCS: 80048; 80053; 81001; 82140; 83036; 83735; 85025; 93005; 93010; 99285-25; G0480; J1815; J3475; J7030; J7070; J7121; U0003

== ENCOUNTER 2021-09-03 11:46 | Inpatient (IN) | payer MEDICARE, MEDICAID ==
[~2021-09-03] VITALS: Ht 160 cm; Wt 77.0 kg
[~2021-09-03 11:46] MED LIST changes: +SODIUM BICARBO650 MG PO
--- OUTSIDE RECORDS SUMMARY | 2021-09-03 11:48 | XMS ---
PreManage Notification: LAURIE VELARDE Security [employer] Events No recent Security Events currently on file CRITERIA MET - 6 ED Visits in 6 Months - [facility] - 3 Facilities in 90 Days - [facility] - 2 Visits in 30 Days - [facility] 10/17/2016-Current PHONE: [phone] LINDA COFFEY [facility] 08/30/2021-Current PHONE: [phone] Luciano has no Care Guidelines for this patient. E.D. VISIT COUNT (12 MO.) 1 Nolan Patricio [address] TOTAL 13 NOTE: Visits indicate total known visits. ED/UCC VISIT TRACKING (12 MO.) 09/03/2021 11:46 [facility] TYPE: Emergency COMPLAINT: - ALTERED MENTAL STATUS 08/26/2021 11:48 [facility] TYPE: Emergency COMPLAINT: - ALOC 08/24/2021 10:43 [facility] TYPE: Emergency COMPLAINT: - Abdominal mass / distenstion_PARACENTESIS - UNSPECIFIED ABDOMINAL PAIN - SHORTNESS OF BREATH - OTHER ASCITES DIAGNOSES: 0. Unspecified abdominal pain 1. Other ascites 5. Unspecified cirrhosis of liver 6. Unspecified viral hepatitis C without hepatic coma 7. 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 therapy - Hypokalemia [facility] DIAGNOSES: - Abdominal Pain - Other ascites - Liver disease, unspecified - needs fluid drained from stomach 08/13/2021 17:[facility]: Emergency DIAGNOSES: - periantesis - Other ascites - Abdominal Distension [facility] DIAGNOSES: - Abdominal Distension; SOB - Other ascites - Medical Problem (Minor) - Hepatic failure, unspecified without coma 07/31/2021 13:13 [facility] TYPE: Emergency COMPLAINT: - WEAKNESS 2021 09:07 [facility] TYPE: Emergency COMPLAINT: - ALTERED LOC 06/11/2021 09:20 [facility] TYPE: Emergency COMPLAINT: - ALTERED MENTAL STATUS, NO EATING/DRINK, FATIGUE 05/10/2021 15:22 [facility] DIAGNOSES: - Other ascites - fluid drained from stomach - Abdominal Pain 05/03/2021 17:50 [facility] TYPE: Emergency COMPLAINT: - DOG BITE DIAGNOSES: - Other nursing home (current) drug therapy - Type 2 diabetes mellitus without complications - Open bite, left lower leg, initial encounter - watermelon harvesting supervisor (current) use of opiate analgesic - Plantar fascial fibromatosis - detention (current) use of insulin - Gout, unspecified - Open bite, left lower leg, initial encounter - Bitten by dog, initial encounter 09/29/2020 13:49 [facility] TYPE: Emergency COMPLAINT: - FALL, FACE, LEFT ARM/SIDE PAIN DIAGNOSES: - Unspecified intracranial injury with loss of consciousness of 30 minutes or less, initial encounter - Nondisplaced fracture of head of left radius, initial encounter for closed fracture - Other nursing home (current) drug therapy - Type 2 diabetes mellitus without complications - detention (current) use of insulin - Unspecified intracranial injury with loss of consciousness of 30 minutes or less, initial encounter - Contusion of left front wall of thorax, initial encounter - Fall (on) (from) unspecified stairs and steps, initial encounter - Nondisplaced fracture of head of left radius, initial encounter for closed fracture INPATIENT VISIT TRACKING (12 MO.) 08/26/2021 13:[address] [facility] [place] TYPE: Medical Surgical COMPLAINT: - HEPATIC ENCEPHALOPATHY DIAGNOSES: - Unspecified cirrhosis of liver - Personal history of other infectious and parasitic diseases - Hypertensive chronic kidney disease with stage 1 through stage 4 chronic kidney disease, or unspecified chronic kidney disease - Portal hypertension - Other watermelon harvesting supervisor (current) drug therapy - Dehydration - Other specified postprocedural states - Acute and subacute hepatic failure without coma - Gastro-esophageal reflux disease without esophagitis - Hypertensive chronic kidney disease with stage 1 through stage 4 chronic kidney disease, or unspecified chronic kidney disease - watermelon harvesting supervisor (current) use of insulin - Hypersplenism - Acidosis - Type 2 diabetes mellitus with diabetic chronic kidney disease - Gastro-esophageal reflux disease without esophagitis - Dehydration - Other watermelon harvesting supervisor (current) drug therapy - Chronic kidney disease, stage 4 (severe) - COVID-19 - Unspecified cirrhosis of liver - Portal hypertension - Hypersplenism - Chronic kidney disease, stage 4 (severe) - Type 2 diabetes mellitus with diabetic chronic kidney disease - Other specified postprocedural states - watermelon harvesting supervisor (current) use of insulin - COVID-19 - Acidosis - Personal history of other infectious and parasitic diseases 07/31/2021 17:24 [facility] TYPE: Observation COMPLAINT: - HEPATIC ENCEPHALOPATHY DIAGNOSES: - COVID-19 - Urinary tract infection, site not specified - Unspecified viral hepatitis C without hepatic coma - Metabolic encephalopathy - detention (current) use of insulin - Type 2 diabetes mellitus with diabetic chronic kidney disease - Hepatic failure, unspecified without coma - Chronic kidney disease, stage 4 (severe) 2021 13:07 [facility] TYPE: Medical Surgical COMPLAINT: - HEPATIC ENCEPHALOPATHY DIAGNOSES: - detention (current) use of insulin - Portal hypertension - Chronic kidney disease, stage 4 (severe) - Other watermelon harvesting supervisor (current) drug therapy - Acute and subacute hepatic failure without coma - Type 2 diabetes mellitus with diabetic chronic kidney disease - Unspecified cirrhosis of liver - Unspecified viral hepatitis C without hepatic coma - Gastro-esophageal reflux disease without esophagitis 06/11/2021 16:23 [facility] TYPE: Medical Surgical COMPLAINT: - ENCEPHALOPATHY DIAGNOSES: - detention (current) use of insulin - Chronic kidney [...] - Other specified postprocedural states - Other watermelon harvesting supervisor (current) drug therapy - Metabolic encephalopathy - watermelon harvesting supervisor (current) use of systemic steroids - Aphasia - detention (current) use of systemic steroids - detention (current) use of insulin - Other watermelon harvesting supervisor (current) drug therapy [email or web address]
--- NOTE | 2021-09-03 16:54 | NUR ---
MED REC COMPLETE
--- NOTE | 2021-09-03 18:00 | NUR ---
PT ARRIVED FROM ER AT 1710. PT ONLY ORIENTED TO FIRST AND LAST NAME. PT REFUSES ALL CARE. PER DAUGHTER, WE ARE TO TREAT PT. PT OVERALL UNCOOPERATIVE. ALL LOBES ARE CLEAR, ABDOMEN IS MODERATLEY DISTENDED AND FIRM, ABD SOUNDS ARE HEARD. BILATERAL LOWER LEG EDEMA +2, OVERALL STRENGTH +4. BP ELEVATED, OTHER V/S WDL. BED ALARM ON.
--- NOTE | 2021-09-03 19:34 | NUR ---
REPORT RECEIVED FROM JUAN A RN, WILL CONTINUE PLAN OF CARE.
--- NOTE | 2021-09-03 20:45 | NUR ---
THIS RN IN TO TAKE VITALS, ASSESS PT, AND ADMINISTER SCHEDULED MEDICATIONS. PT SITTING UP IN BED AT THIS TIME ALERT AND ORIENTED TO SELF AND LOCATION. PT NOT ORIENTED TO YEAR, OR MONTH, OR EVENT. ASSESSMENT COMPLETED AT THIS (SEE CHART), INSULIN HELD PER SLIDING SCALE. PT ABLE TO DRINK WATER AT THIS TIME WITHOUT DIFFICULTY. PT REPORTS NO FURTHER NEEDS AT THIS TIME AND IS NOW ON THE PHONE TALKING TO HER PARTNER, WILL CONTINUE PLAN OF CARE AND ADMINISTER SCHEDULED MEDICATIONS. CALL LIGHT IN REACH, BED IN LOWEST POSITION, BED ALARM ON.
--- NOTE | 2021-09-03 21:00 | NUR ---
THIS RN IN TO ADMINISTER SCHEDULED MEDICATIONS. PT STILL IN BED ON THE PHONE. SCHEDULED MEDICATIONS ADMINISTERED AT THIS TIME (SEE MAR). PT ABLE TO TAKE HER PO MEDS WITHOUT DIFFICULTY. PT REPORTS NO FURTHER NEEDS AT THIS TIME AND IS NOW RESTING IN BED TALKING ON THE PHONE. CALL LIGHT IN REACH, BED IN LOWEST POSITION. PT INFORMED TO USE THE CALL LIGHT IF SHE NEEDS ASSISTANCE OR NEEDS TO USE THE BEDSIDE COMMODE, BED ALARM ON, WILL CONTINUE PLAN OF CARE.
--- NOTE | 2021-09-03 22:29 | NUR ---
RESPONDED TO BED ALARM, PT WAS UP AT THE SIDE OF THE BED WALKING TOWARDS THE BEDSIDE COMMODE. PT AWAKE AND ALERT AND WAS ASSISTED WITH WIRE MANAGEMENT, PT ABLE TO VOID AND HAVE A BM AT THIS TIME. PT ABLE TO DO PERICARE ON HER. PT ABLE TO GET BACK ONTO THE BED AND IS NOW LAYING IN BED RESTING. WARM BLANKETS PROVIDED PER HER REQUEST. PT REPORTS NO FURTHER NEEDS AT THIS TIME, CALL LIGHT IN REACH, BED ALARM ON, WILL CONTINUE PLAN OF CARE.
--- NOTE | 2021-09-04 00:40 | NUR ---
PT CHECK ON AT THIS TIME AND IS SLEEPING IN BED. RESPIRATIONS NOTED AND ARE EVEN AND UNLABORED, PT IN NO APPARENT DISTRESS AT THIS TIME AND WAS LEFT UNDISTURBED, CALL LIGHT IN REACH, BED IN LOWEST POSITION, BED ALARM ON, WILL CONTINUE PLAN OF CARE.
--- NOTE | 2021-09-04 02:14 | NUR ---
THIS RN IN TO ASSESS PT, TAKE VITALS, AND CHECK BLOOD SUGAR. PT SLEEPING IN BED AT THIS TIME BUT AWOKE EASILY. VITALS ASSESSED AND BLOOD SUGAR CHECKED. BLOOD SUGAR AT THIS TIME WAS 80 (SEE CHART). SCHEDULED INSULIN HELD PER SLIDING SCALE. PT ASSESSED AFTERWARDS (SEE CHART). PT DENIES HAVING ANY PAIN AT THIS TIME AND REPORTS NO NEEDS WHEN ASKED. PT RETURNED BACK TO SLEEP AND IS NOW RESTING IN BED. CALL LIGHT IN REACH, BED IN LOWEST POSITION, WILL CONTINUE PLAN OF CARE.
--- NOTE | 2021-09-04 03:45 | NUR ---
CELL LEAD IN TO ASSIST PT IN USING THE BEDSIDE COMMODE, LARGE LIQUID STOOL AND UNMEASURED VOID REPORTED, PT BACK IN BED, BED ALARM ON, BED IN LOWEST POSITION.
--- NOTE | 2021-09-04 03:58 | NUR ---
THIS RN IN TO ASSESS PT. PT LAYING IN BED AT THIS TIME RESTING BUT AWAKE. NODDING YES/NO TO QUESTIONS APPROPRIATELY. PT ASSESSED AT THIS TIME AND VITALS TAKEN (SEE CHART). PT PROVIDED WITH WARM BLANKETS PER HER REQUEST. PT REPORTS NO FURTHER NEEDS WHEN ASKED AT THIS TIME AND RETURNED BACK TO SLEEP. CALL LIGHT IN REACH, BED IN LOWEST POSITION, BED ALARM ON, WILL CONTINUE PLAN OF CARE.
--- NOTE | 2021-09-04 05:40 | NUR ---
THIS RN IN TO CHECK ON PT AND CHECK PT'S BLOOD SUGAR. PT LAYING IN BED SLEEPING AT THIS TIME. PT AWOKE EASILY, BLOOD SUGAR CHECKED, CBG WAS 85. PT REPORTS NO FURTHER NEEDS WHEN ASKED AT THIS TIME AND RETURNED BACK TO SLEEP, WILL CONTINUE PLAN OF CARE. CALL LIGHT IN REACH, BED IN LOWEST POSITION, BED ALARM ON, WILL CONTINUE PLAN OF CARE.
--- NOTE | 2021-09-04 07:30 | NUR ---
RECEIVED REPORT AT 0700, PT IN BED RESTING AT THAT TIME.
--- NOTE | 2021-09-04 09:00 | NUR ---
PT STILL ONLY ORIENTED TO SELF (FRIST AND LAST NAME). PT STILL UNCOOPERATIVE OVERALL WITH MEDICATIONS AND CARE. ALL LOBES ARE CLEAR, ABD STILL MODERATLY DISTENDED AND FIRM TO TOUCH. ABD SOUNDS PRESENT. PT HAS NOW BILATERAL ARM/HAND DEPENDANT EDEMA. ALSO, HER BILATERAL LEG EDEMA HAS INCREASED SINCE ADMISSION YESTERDAY AND IS APPROACHING A +3 PITTING. PT SO FAR HAS NOT VOIDED. PT IS ABLE TO DRINK WATER THOUGH. TEMP THIS MORNING IS A 99.1, OTHER V/S WDL OVERALL. WILL CONTINUE TO MONITOR.
--- NOTE | 2021-09-04 10:38 | NUR ---
Pt arrives to med surg unit from CCU via stretcher. Pt flat affect, answers questions, denies pain or needs. VSS, alert and oriented. Assessment complete.
--- NOTE | 2021-09-04 12:00 | NUR ---
Pt up walking around in the room, bed alarming. This RN enters and attempts to discuss plan of care, she is slow to respond and acts frustrated with this RN. Tele in place, saline locked, on room air, back to bed and allowed to rest at this time.
--- NOTE | 2021-09-04 13:51 | NUR ---
PT SNOOZING ON SOFA IN THE SUNSHINE. PT NOT FEELING CONVERSATIONAL. NO I&O'S YET, PT HAS NOT EATEN OR DRANK ANYTHING YET. RN AWARE. VS DONE. ROOM TIDIED.
--- NOTE | 2021-09-04 14:06 | NUR ---
REMADE PT'S BED. PT IS CYRING AND ROCKING BACK AND FORTH.
--- NOTE | 2021-09-04 15:45 | NUR ---
IV ABX infusing, pt refuses to take lactulose at this time, will return shortly to attempt again
--- NOTE | 2021-09-04 16:00 | NUR ---
Pt refuses to take lactulose, this RN discusses options, will return shortly to attempt
--- NOTE | 2021-09-04 16:30 | NUR ---
Pt refuses to take lactulose from this RN, pneumatic tube fitterANDREI Blanton in room, Dr Carmen aware.
--- NOTE | 2021-09-04 17:23 | NUR ---
PT HUDDLED IN BLANKET ON BED. PT GROANING IF IN PAIN, BUT DENIES BEING IN PAIN. VS DONE, ICE WATER REFRESHED. WILL COME BACK TO DO I&O'S AFTER DINNER. CALL LIGHT WITHIN REACH. NO FURTHER NEEDS AT THIS TIME.
--- NOTE | 2021-09-04 17:30 | NUR ---
Rounded on patient who is sitting up in bed, eating dinner. Saline locked, on room air, no needs identified at this time. Call light in reach.
--- NOTE | 2021-09-04 18:27 | NUR ---
PT SLEEPING. PT HAS DRAINED EVERY CUP OF WATER THAT HAS BEEN BROUGHT AND REFILLED. NO OUTPUT AT THE MOMENT. ANDREI DONNELLY NOTIFIED.
--- NOTE | 2021-09-04 19:29 | EKG ---
[facility] [address] [place], [place] [address] Signed Normal sinus rhythm Low voltage QRS Borderline ECG When compared with ECG of 26-AUG-2021 12:41, No significant change was found Confirmed by NELLIE JAY MD ([id number]) on 09/04/2021 7:29:23 PM Electronically Signed By: NELLIE JAY MD 09/04/211928 PATIENT NAME: SYDLAURIE RAE Electrocardiogram DATE OF : 65 PHYSICIAN: NELLIE JAY MD REPORT #: [id number] REPORT IS CONFIDENTIAL AND NOT TO BE RELEASED WITHOUT AUTHORIZATION
--- NOTE | 2021-09-04 19:30 | NUR ---
SHIFT REPORT RECEIVED FROM ANSLEYRIBASSEM DONNELLY AT BEDSIDE. pt RESTING QUIETLY IN BED, EYES CLOSED AND RR EVEN AND UNLABORED. pt BRIEFLY AWOKE TO VOICE THEN RETURNED TO SLEEP. pt STEADY ON FEET AND INDEPENDENT IN ROOM PER REPORT, CALL LIGHT IN REACH. TOILET HAT X2 IN PLACE, BOARD UPDATED.
--- NOTE | 2021-09-04 22:00 | NUR ---
ASSESSMENT COMPLETE, SCHEDULED MEDS GIVEN (SEE EMAR). pt A/O TO SELF AND . WHEN ASKED FOR DATE OR pt's LOCATION, pt DOESN'T RESPOND AND LOOKS AWAY FROM SENIOR ANIMAL TRAINER. FLAT AFFECT NOTED. pt INITALLY REFUSED ORAL MED ALONG WITH PO LACTULOSE. EDUCATION PROVIDED AND HOB ELEVATED. pt DRANK 300MLS WATER, BUT DID NOT TAKE MEDICATION FROM SENIOR ANIMAL TRAINER. pt REQUIRES FREQUENT PROMPTING AND COAXING. pt SENSITIVE TO TOUCH AND CRIED WHEN BLANKET WAS PULLED UP TO UNCOVER FEET TO ASSESS CMS AND WELL WHEN IV WAS FLUSHED AFTER MEDICATION ADMINISTRATION. IV SITE WNL, NO SIGNS OF SWELLING OR PHLEBITIS NOTED. pt OFFERED AND ACCEPTED NEW IV, IV START BY BUNCH TRIMMER MOLD UNSUCCESSFUL. pt THEN REFUSED SECOND ATTEMPT. ORIGINAL IV FLUSHED WITH SALINE, SITE REMAINS WNL AND Pt NOW DENIES PAIN WHEN FLUSHED. ORIGINAL IV LEFT IN PLACE AND SALINE LOCKED. UNMEASURED VOID NOTED, UNABLE TO MEASURE VOID D/T EXCESSIVE TIOLET PAPER IN HAT. WILL MONITOR. CALL LIGHT IN REACH AND FRESH WATER APPLIED.
--- NOTE | 2021-09-04 22:30 | NUR ---
MULTIPLE ATTEMPTS FOR pt TO TAKE PO LACTULOSE UNSUCCESSFUL. EDUCATION PROVIDED AND pt JUST SHAKES HEAD AND REPEATEDLY STATES COMMENTS SUCH "NO" OR "I DON'T WANT IT". ATTEMPTED TO EDUCATE pt AND OFFER HALF OF ORIGINAL DOSE TO COMPROMISE. pt CONTINUES TO REFUSE. JOB COACHINGANDREI DERAS. EMAR UPDATED.
--- NOTE | 2021-09-05 00:20 | NUR ---
TELE LEAD OFF, BACK IN PLACE. pt IRRITABLE AND NOT WANTING TO ASSIST IN REPOSITIONING TO EASILY FIX LEAD. OCCASIONALLY SWEARS QUIETLY TO SELF. NO NEEDS VERBALIZED, CALL LIGHT IN REACH.
--- NOTE | 2021-09-05 02:24 | NUR ---
IN ROOM TO ROUND, pt RESTING IN BED. HAT EMPTIED, pt REPORTS URINE AND BM MIXED. ORAL TEMP DONE, AFEBRILE. NO FURTHER NEEDS, CALL LIGHT IN REACH.
--- NOTE | 2021-09-05 07:03 | NUR ---
CALL LIGHT ANSWERED, pt REQUESTING DOCUMENTATION NURSE FOR PRAYER. PRAYER PROVIDED WITH pt AT THIS TIME, THERAPEUTIC COMMUNICATION ALSO PROVIDED ALONG WITH ACTIVE LISTENING. DAYSHIFT RN AND HOOP BENDER TANK AWARE OF pt's REQUEST FOR PRAYER. CALL LIGHT IN REACH.
--- NOTE | 2021-09-05 07:15 | NUR ---
Report received from Shahana FORBES. Pt resting in bed, awakens to this RN entering, is alert and oriented to situation, asks for phone replanting machine crewman and to discuss medications. No needs at this time, will continue plan of care.
--- NOTE | 2021-09-05 08:50 | NUR ---
Scheduled medications administered, assessment complete. Pt sitting up in chair eating breakfast, refuses lactulose at first but does take it with her other medications. Saline locked, IV flushed and WNL. Updated plan of care and pt is agreeable. She is increasingly oriented to situation (from yesterday 09/04). No further needs at this time.
--- NOTE | 2021-09-05 09:06 | NUR ---
PT SITTING IN CHAIR WITH HEATED BLANKETS. PT JUST STARTED EATING BREAKFAST. PT SAYS THEY FEEL PRETTY GOOD TODAY. THIS TURF MANAGER WILL COME BACK TO DO I&O'S AFTER BREAKFAST. VS DONE AND BED MADE. ROOM TIDIED.
--- NOTE | 2021-09-05 09:38 | NUR ---
PT IN CHAIR TALKING ON PHONE. VS AND I&O'S DONE. BED MADE AND ROOM TIDIED. ICE WATER REFRESHED. NO FURTHER NEEDS AT THIS TIME. CALL LIGHT WITHIN REACH.
--- NOTE | 2021-09-05 11:00 | NUR ---
Pt out of shower, requests IV to be flushed, WNL. PT Nara in room to work with patient.
--- NOTE | 2021-09-05 12:05 | NUR ---
SS insulin adminstered per order, pt resting in bed, lab in room.
--- NOTE | 2021-09-05 14:04 | NUR ---
PT LAYING IN BED TALKING TO VISITOR. PT SEEMS TO BE IN A HAPPY BUBBLY MOOD. CALL LIGHT IN REACH NO FURTHER NEEDS AT THIS MOMENT.
--- NOTE | 2021-09-05 18:32 | NUR ---
PT LAYING IN BED TALKING ON PHONE. PT SEEMS IN A LUBRICATING SPECIALIST MOOD. ROOM TIDIED. PT DECLINED TO HAVE ICE WATER REFRESHED. CALL LIGHT WITHIN REACH. NO FURTHER NEEDS AT THIS MOMENT.
--- NOTE | 2021-09-05 19:05 | NUR ---
SHIFT REPORT RECEIVED FROM JUAN A DONNELLY AT BEDSIDE. pt AWAKE AND TALKING ON THE PHONE, TELE#[address], HR WNL- SINUS RHYTHM. pt FOUND RED CROSS ANTOBODY IDENTIFICATION CARD, CARD SHOWN TO MD AND COPY MADE IN CHART AND COPY SENT TO LAB. ORIGINAL BACK WITH pt. PER LAB, SAMPLE STILL NEEDS TO SENT OUT IN AM AND COMPARED FOR UPDATED ANTIBODY REPORT. MD JAY AND TITLE I MATH TUTOR BAILEY BOTH AWARE.
--- NOTE | 2021-09-05 21:17 | NUR ---
PATIENT UP TO BATHROOM AND ABCK TO BED, SBA. VITALS AND I&O'S CHARTED. FRESH WATER GIVEN. KOMAL BALLARD, RN NOTIFIED. CALL LIGHT IN REACH. NO FURTHER NEEDS AT THIS TIME.
--- NOTE | 2021-09-05 21:23 | NUR ---
ASSESSMENT COMPLETE, SCHEDULED MEDS GIVEN (SEE EMAR). pt DENIES PAIN AND NAUSEA. IV SITE WNL AND FLUSHES EASILY, SALINE LOCKED. pt A/O AND COMPLIANT WITH CARE AT THIS TIME, CALL LIGHT IN REACH.
--- NOTE | 2021-09-05 22:30 | NUR ---
EVENING TEMP 99.9. TEMP RECHECKED AFTER USE OF IS, RESULT OF 100.4. EXCESS BLANKETS REMOVED, TEMP ROOM DECREASED AND TEMP AGAIN RECHECKED, RESULT OF 100.7. TELEPHONE ORDERS READ BACK FOR SET OF BLOOD CULTURES. NO NEW ORDERS REGARDING MEDICATION FOR FEVER MANAGEMENT, PER MD CONTINUE TO MONITOR. NO PARAMETERS PROVIDED ON WHEN TO CALL. WILL MONITOR. SHELLY FROM LAB AWARE OF ORDER AND WILL ATTEMPT COLLECTION.
--- NOTE | 2021-09-05 23:00 | NUR ---
SHELLY FROM LAB UNSUCCESSFUL WITH LAB DRAW, TRANSITIONAL STUDIES INSTRUCTOR BAILEY IN ROOM TO ATTEMPT COLLECTION OF BLOOD CULTURES.
--- NOTE | 2021-09-05 23:28 | NUR ---
pt UP TO RESTROOM INDEPENDENLTY. RN IN ROOM. BLOOD CULTURES DRAWN BY THIS RN AND SENT TO LAB. pt TOLERATED WELL, RESTING IN BED. ANDREI BRENNAN IN ROOM AT THIS TIME.
--- NOTE | 2021-09-05 23:30 | NUR ---
BLOOD CULTURES COLLECTED BY RN IMMUNOLOGY. FIRST SET FROM RIGHT FOREARM, SECOND SET FROM LEFT HAND. PRN COUGH MEDICATION PROVIDED, NO ADDITIONAL NEEDS. CALL LIGHT IN REACH.
--- NOTE | 2021-09-06 02:34 | NUR ---
CALL LIGHT ANSWERED, pt UP SBA TO VOID AND BACK TO BED. STEADY ON FEET. TEMP RECHECKED, RESULT OF 99.3. NO FURTHER NEEDS, CALL LIGHT IN REACH.
--- NOTE | 2021-09-06 04:45 | NUR ---
ROUNDED ON pt, pt RESTING QUIETLY IN BED WITH EYES CLOSED. RR EVEN AND UNLABORED, TELE#3 IN PLACE-NSR. HR 80'S. CALL LIGHT IN REACH.
--- NOTE | 2021-09-06 05:17 | NUR ---
PRN COUGH MEDICATION GIVEN , SEE EMAR. ASSESSMENT COMPLETE, NO NEW CHANGES OR CONCERNS. VSS, I&O'S COMPLETE. FRESH WATER AT BEDSIDE. CALL LIGHT IN REACH.
--- NOTE | 2021-09-06 05:56 | NUR ---
DR JAY ON PHONE, PER MD NO NEED TO NOTIFY HER IF PLATELETS OR H&H COMES BACK CRITICAL THIS MORNING CROSSMATCH FOR ANTBODIES IS SCHEDULED LATER TODAY.
--- NOTE | 2021-09-06 07:15 | NUR ---
Report received from Shahana FORBES. Pt resting in bed watching tv, no needs identified at this time, will continue plan of care.
--- NOTE | 2021-09-06 08:12 | NUR ---
PT ACCEPTED CHAIR. BLLINDS OPENED, ROOM TIDIED. ICE WATER REFRESHED. PT NOW EATING BREAKFAST IN CHAIR. CALL LIGHT WITHIN REACH. NO FURTHER NEEDS AT THIS TIME. PT DECLINED TO HAVE WARM CLOTH FOR FACE.
--- NOTE | 2021-09-06 08:25 | NUR ---
Scheduled medications administered including lactulose. Assessment complete. Pt is compliant with care and alert and oriented. LSC, bowel tones active, pt having frequent liquid stools through night. Tele in place. Pt up in chair eating breakfast, has no other needs at this time. Call light in reach
--- NOTE | 2021-09-06 08:50 | NUR ---
PT DECLINED SHOWER.
--- NOTE | 2021-09-06 09:40 | NUR ---
Administered 5ml PRN robitussin for continued cough. Bandaids applied to scabs on forearms per patient request, she reports picking at scabs if left uncovered. Updated regarding plan with blood transfusion. No further needs at this time.
--- NOTE | 2021-09-06 10:01 | NUR ---
PT INDEPENDENT IN ROOM AND IN BATHROOM. VS AND I&O'S DONE. TIDIED ROOM. PT DECLINED TO HAVE ICE WATER REFRESHED. TIDIED ROOM. WEIGHED PT ON STANDING SCALE. CALL LIGHT WITHIN REACH. NO FURTHER NEEDS AT THIS TIME.
--- NOTE | 2021-09-06 13:30 | NUR ---
RN CONY SAID PT REQUESTED A VISIT FROM CRAWLER DRAGLINE OPERATOR. PT ALERT, ORIENTED AND LAYING IN BED TALKING ON PHONE. PT SEEMED PLEASED TO SEE ME-REMEMBERS ME FROM PREVIOUS ADMISSIONS. PT BEGAN TO SHARE HER STRUGGLE TRYING TO STAY HEALTHY ENOUGH TO GET A LIVER TRANSPLANT. PT REQUESTED I NOTIFY HER INSULATION ENGINEMAN SHE IS HERE, WHICH I DID. HAD PRAYER WITH PT AND GAVE HER A P.SHAWL AND ENCURAGEMENT
--- NOTE | 2021-09-06 13:34 | NUR ---
PT TALKING ON PHONE. PT IS IN AN AMIABLE MOOD. VS AND I&O'S DONE. ROOM TIDIED. ICE WATER REFRESHED. FRESH ICE BROUGHT FOR SODA. CALL LIGHT WITHIN REACH. NO FURTHER NEEDS AT THIS TIME.
--- NOTE | 2021-09-06 13:45 | NUR ---
Robitussin PRN administered. New collection hats for bathroom provided. Pt has no needs at this time
--- NOTE | 2021-09-06 14:00 | NUR ---
Pt lives in [place] in low income housing, uses food stamps, and has assistance from [employer]. [employer] paid her utilities this month. Her siste r has moved to [place] from [place] and lives in the same apartment complex she will assist as needed, but pt denies need. Sister is Daly Borges [phone]. Pt denies use of DME, states she has a walker, but does not use. She states she drives self if needed. Pt is awaiting blood from [place]. She is know to have reaction (resp arrest) in the past, so precautions will be taken. Pt was diabled in 2018 for Hep C liver failure. She denies financial issues and feels she does quite well. Plan is for dc to home either tonight or tomorrow am depending on when blood is received.
--- NOTE | 2021-09-06 15:19 | NUR ---
PT TAKING NAP. PULLED DOWN BLINDS AND SHUT LIGHT OFF PER PT'S REQUEST. CALL LIGHT WITHIN REACH. NO FURTHER NEEDS AT THIS TIME.
--- NOTE | 2021-09-06 16:30 | NUR ---
Scheduled medications administered. Pt resting in bed and states no needs, sister at bedside. Updated re: plan of care.
--- NOTE | 2021-09-06 17:25 | NUR ---
IV pump alarming, error resolved. IV ABX infusing. PRN Robitussin administered. Pt has dinner delivered, no further needs. Updated re: plan for blood administration. Pt agreeable.
--- NOTE | 2021-09-06 18:10 | NUR ---
PT JUST FINISHED WITH DINNER. PT COMPLAINING OF STOMACH PAIN. I&O'S AND VS DONE. CALL LIGHT WITHIN REACH. PT DECLINED FRESH ICE WATER. NO FURTHER NEEDS AT THE MOMENT.
--- NOTE | 2021-09-06 19:05 | NUR ---
REPORT RECEIVED FROM HERBERT DONNELLY RN. PT IN BED, VISITING WITH SISTER. NO NEEDS AT THIS TIME.
--- NOTE | 2021-09-06 21:34 | NUR ---
Patient is asking for her nurse. Temperature was 100, orally. RN was notified and in room. Call light is in reach.
--- NOTE | 2021-09-06 22:00 | NUR ---
REPORT RECEIVED FROM ANDREI UMANA, ASSUMED CARE OF pt. ASSESSMENT COMPLETE. ABD DISTENDED, ASCITES, BOWEL TONES ACTIVE X 4, NON-TENDER WITH PALPATION. pt PROVIDED WITH TEA REQEUSTED. SCHEDULED MEDICATIONS ADMINISTERED. PRN TYLENOL ADMINISTERED FOR [place] AND TEMPERATURE 100.0 CALL LIGHT AND PERSONAL SUPPLIES IN REACH. NO ADDITIONAL REQUESTS. LIGHTS OFF IN ROOM.
--- NOTE | 2021-09-06 23:31 | NUR ---
CALL LIGHT ANSWERED, BACK IN BED AFTER UP TO RESTROOM. MANAGER CUSTOMER IN ROOM. SNACKS IN REFRIGERATOR REQEUSTED. CALL LIGHT IN REACH.
--- NOTE | 2021-09-07 02:13 | NUR ---
CHECKED ON pt. PRN COUGH MEDICATION ADMINISTERED REQUESTED. TV TURNED OFF PER REQUEST. pt IS ALERT AND ORIENTED TO ALL. DROWSY. BACK TO SLEEP, CLOSING EYES. NO ADDITIONAL NEEEDS. CALL LIGHT IN REACH.
--- NOTE | 2021-09-07 04:30 | NUR ---
CALL LIGHT ANSWERED. URINE EMPTIED FROM HAT. pt COLD, WARM BLANKETS PROVIDED. TEMPEARTURE IN ROOM ADJUSTED. CALL LIGHT IN REACH.
--- NOTE | 2021-09-07 06:45 | NUR ---
pt AWAKE RESTING IN BED, PRN COUGH MEDICATION ADMINISTERED. VSS. STANDING WEIGHT COMPLETE. ICE WATER REFILLED. UP TO RESTROOM INDEPENDENTLY FOR VOID, URINE HAT EMPTIED. CALL LIGHT IN REACH.
--- NOTE | 2021-09-07 07:57 | NUR ---
PT AWAKE IN BED. WARM WASH CLOTH GIVEN. WHITE BOARD UPDATED. PT HAS FRESH ICE WATER. CALL LIGHT WITHIN REACH. PT REFUSES TO GET UP TO CHAIR FOR BREAKFAST BUT IS AGREEABLE TO AMBULATING THE HALLS AFTER BREAKFAST. NO FURTHER NEEDS AT THIS TIME.
--- NOTE | 2021-09-07 09:48 | NUR ---
PT IN SHOWER. PT INDEPENDENT IN SHOWER. LINENS CHANGED. NO FURTHER NEEDS AT THIS TIME.
--- NOTE | 2021-09-07 09:49 | NUR ---
PATIENT UP TO AMBULATE 3 LAPS IN HALLWAY. PATIENT SET UP FOR SHOWER.
--- NOTE | 2021-09-07 12:38 | NUR ---
PT AWAKE IN CHAIR. THIS FRAME COVERER AND ANDREI MEJIA MOVED PT TO BED WITH SIENA LIFT. PT'S RIGHT SIDE FLOATED WITH PILLOWS. CALL LIGHT WITHIN REACH. NO FURTHER NEEDS AT THIS TIME
[2021-09-07] MEDS ORDERED: SPIRONOLACTONE100 MG PO (14:03)
[2021-09-07] MEDS ORDERED: SODIUM BICARBO650 MG PO (14:03)
[2021-09-07] MEDS ORDERED: FUROSEMIDE40 MG PO (14:03)
--- NOTE | 2021-09-07 14:09 | NUR ---
PT SITTING ON BED, SAID SHE IS TO DC TODAY, PT SEEMED EXCITED. SHE STATED SHE FEELS BETTER AND DIDNOT NEED TRANSFUSION YESTERDAY. LOOKING FORWARD TO GOING HOME AND THE NEXT STEP IN HER HEALTH JOURNEY. GAVE BLESSING
[2021-09-07] MEDS ORDERED: FERROUS SULFAT325 MG PO (14:43)
--- NOTE | 2021-09-07 14:55 | NUR ---
Spoke with Niki. She has called her sister to transport her home. Pt plans on dc to home and sister will assist. Pt states she spoke with Dr. Mohan and has decided to not have blood transfusion as this may make it more difficult if she has surgery in the future. Pt states she now has an open card for medicaid and this may qualify her to be on the transplant list. She denies other needs and plans on dc home soon.
== END 2021-09-07 14:55 | disposition home or self-care (01) | DRG 394 ==
LOC: ED 11:46 → CCU 16:02 → MS 16:02
PROVIDERS: ADMIT Internal Medicine; ATTEND Internal Medicine
PROC: 30233N1 Transfusion of Nonautologous Red Blood Cells into Peripheral Vein, Percutaneous Approach (ICD-10-PCS; principal; 2021-09-03)
DX: K91.82 Postprocedural hepatic failure (principal); K76.6 Portal hypertension; D61.818 Other pancytopenia; N18.4 Chronic kidney disease, stage 4 (severe); E86.0 Dehydration; Z20.822 Contact with and (suspected) exposure to COVID-19; B19.20 Unspecified viral hepatitis C without hepatic coma; D73.1 Hypersplenism; K74.60 Unspecified cirrhosis of liver; D63.1 Anemia in chronic kidney disease; D63.8 Anemia in other chronic diseases classified elsewhere; E11.22 Type 2 diabetes mellitus with diabetic chronic kidney disease; K21.9 Gastro-esophageal reflux disease without esophagitis; Z79.4 Long term (current) use of insulin; Z79.899 Other long term (current) drug therapy
CPT/HCPCS: 80053; 82140; 83605; 83735; 85007; 85025; 85610; 86850; 86900; 86901; 86922; 93005; 93010; 97161; 99285-25; C9113; J0696; J1815; P9047; U0003

== ENCOUNTER 2021-09-23 13:11 | Observation (INO) | payer MEDICARE, MEDICAID ==
[~2021-09-23] VITALS: Ht 160 cm; Wt 62.0 kg
[~2021-09-23 13:11] MED LIST changes: +FERROUS SULFAT325 MG PO; +FUROSEMIDE40 MG PO; +SPIRONOLACTONE100 MG PO
--- OUTSIDE RECORDS SUMMARY | 2021-09-23 13:14 | XMS ---
PreManage Notification: LAURIE VELARDE Security Railroad Design Consultant Events No recent Security Events currently on file CRITERIA MET - 6 ED Visits in 6 Months - PDMP - [facility] - 3 Facilities in 90 Days - ED - Positive COVID-19 Lab Result - [facility] - [facility] - 2 Visits in 30 Days CARE PROVIDERS FELIX LOUIE [facility] 10/17/2016-Current PHONE: [phone] LINDA COFFEY [facility] 08/30/2021-Current PHONE: [phone] Luciano has no Care Guidelines for this patient. [facility]Ke[facility] VISIT COUNT (12 MO.) 1 [facility] 9 [facility] TOTAL 14 NOTE: Visits indicate total known visits. ED/UCC VISIT TRACKING (12 MO.) 09/23/2021 13:11 [facility] [place] TYPE: Emergency COMPLAINT: - ALTERED LOC 09/03/2021 11:46 [facility] [place] TYPE: Emergency [...] viral hepatitis C without hepatic coma 7. nursing home (current) use of insulin 08/17/2021 15:06 [facility] [place] TYPE: Emergency COMPLAINT: - LOWER BACK/ABD PAIN DIAGNOSES: - Unspecified abdominal pain - Type 2 diabetes mellitus without complications - Gastro-esophageal reflux disease without esophagitis - Somnolence - intermodal dispatcher (current) use of insulin - Other intermodal customer service (current) drug therapy - Hypokalemia 08/14/2021 10:32 [facility] Luz RICH[facility]DS[facility] TYPE: Emergency DIAGNOSES: - Abdominal Pain - Other ascites - Liver disease, unspecified - needs fluid drained from stomach 08/13/2021 17:58 [facility] Collin RICHARDSON TYPE: Emergency DIAGNOSES: - periantesis - Other ascites - Abdominal Distension 08/06/2021 11:14 [facility] Collin RICHARDSON TYPE: Emergency DIAGNOSES: - Abdominal Distension; SOB - Other ascites - Medical Problem (Minor) - Hepatic failure, unspecified without coma 07/31/2021 13:13 [facility] TYPE: Emergency COMPLAINT: - WEAKNESS 2021 09:07 [facility] [place] TYPE: Emergency COMPLAINT: - ALTERED LOC 06/11/2021 09:20 [facility] TYPE: Emergency COMPLAINT: - ALTERED MENTAL STATUS, NO EATING/DRINK, FATIGUE [facility] DIAGNOSES: - Other ascites - fluid drained from stomach - Abdominal Pain 05/03/2021 17:50 [facility] TYPE: Emergency COMPLAINT: - DOG BITE DIAGNOSES: - Other custodial (current) drug therapy - Type 2 diabetes mellitus without complications - Open bite, left lower leg, initial encounter - intermodal dispatcher (current) use of opiate analgesic - Plantar fascial fibromatosis - intermodal dispatcher (current) use of insulin - Gout, unspecified [...] initial encounter for closed fracture - Other intermodal customer service (current) drug therapy - Type 2 diabetes mellitus without complications - nursing home (current) use of insulin - Unspecified intracranial injury with loss of consciousness of 30 minutes or less, initial encounter - Contusion of left front wall of thorax, initial encounter - Fall (on) (from) unspecified stairs and steps, initial encounter - Nondisplaced fracture of head of left radius, initial encounter for closed fracture INPATIENT VISIT TRACKING (12 MO.) 09/03/2021 16:02 [facility] [place] TYPE: Medical Surgical COMPLAINT: - HEPATIC ENCEPHALOPATHY DIAGNOSES: - Chronic kidney disease, stage 4 (severe) - Anemia in chronic kidney disease - Type 2 diabetes mellitus with diabetic chronic kidney disease - Gastro-esophageal reflux disease without esophagitis - intermodal dispatcher (current) use of insulin - Type 2 diabetes mellitus with diabetic chronic kidney disease - Dehydration - Dehydration - Portal hypertension - Anemia in other chronic diseases classified elsewhere - nursing home (current) use of insulin - Hypersplenism - Postprocedural hepatic failure - Hypersplenism - Gastro-esophageal reflux disease without esophagitis - Unspecified viral hepatitis C without hepatic coma - Unspecified cirrhosis of liver - Unspecified viral hepatitis C without hepatic coma - Unspecified cirrhosis of liver - Other pancytopenia - Other intermodal customer service (current) drug therapy - Anemia in other chronic diseases classified elsewhere - Anemia in chronic kidney disease - Other pancytopenia - Chronic kidney disease, stage 4 (severe) - Portal hypertension - Other custodial (current) drug therapy 08/26/2021 13:[address] [facility] [place] TYPE: Medical Surgical COMPLAINT: - HEPATIC ENCEPHALOPATHY DIAGNOSES: - Unspecified cirrhosis of liver - Personal history of other infectious and parasitic diseases - Hypertensive chronic kidney disease with stage 1 through stage 4 chronic kidney disease, or unspecified chronic kidney disease - Portal hypertension - Other pancytopenia - Other intermodal customer service (current) drug therapy - Dehydration - Other specified postprocedural states - Acute and subacute hepatic failure without coma - Gastro-esophageal reflux disease without esophagitis - Hypertensive chronic kidney disease with stage 1 through stage 4 chronic kidney disease, or unspecified chronic kidney disease - intermodal dispatcher (current) use of insulin - Hypersplenism - Acidosis - Type 2 diabetes mellitus with diabetic chronic kidney disease - Gastro-esophageal reflux disease without esophagitis - Dehydration - Other custodial (current) drug therapy - Chronic kidney disease, stage 4 (severe) - COVID-19 - Unspecified cirrhosis of liver - Portal hypertension - Hypersplenism - Chronic kidney disease, stage 4 (severe) - Type 2 diabetes mellitus with diabetic chronic kidney disease - Other specified postprocedural states - nursing home (current) use of insulin - COVID-19 - Acidosis - Secondary esophageal varices without bleeding - Personal history of other infectious and parasitic diseases 07/31/2021 17:24 [facility] [place] TYPE: Observation COMPLAINT: - HEPATIC ENCEPHALOPATHY DIAGNOSES: - COVID-19 - Urinary tract infection, site not specified - Unspecified viral hepatitis C without hepatic coma - Metabolic encephalopathy - intermodal dispatcher (current) use of insulin - Type 2 diabetes mellitus with diabetic chronic kidney disease - Hepatic failure, unspecified without coma - Chronic kidney disease, stage 4 (severe) 2021 13:07 [facility] TYPE: Medical Surgical COMPLAINT: - HEPATIC ENCEPHALOPATHY DIAGNOSES: - nursing home (current) use of insulin - Portal hypertension - Chronic kidney disease, stage 4 (severe) - Other custodial (current) drug therapy - Acute and subacute hepatic failure without coma - Type 2 diabetes mellitus with diabetic chronic kidney disease - Unspecified cirrhosis of liver - Unspecified viral hepatitis C without hepatic coma - Gastro-esophageal reflux disease without esophagitis 06/11/2021 16:23 [facility] [place] TYPE: Medical Surgical COMPLAINT: - ENCEPHALOPATHY DIAGNOSES: - nursing home (current) use of insulin - Chronic kidney [...] - Other specified postprocedural states - Other custodial (current) drug therapy - Metabolic encephalopathy - nursing home (current) use of systemic steroids - Aphasia - nursing home (current) use of systemic steroids - nursing home (current) use of insulin - Other custodial (current) drug therapy [email or web address]
--- NOTE | 2021-09-23 19:00 | NUR ---
patient admitted from ER, patient is noncooperative, bed alarm on, call light within reach, requires reinforcement, can be combative with staff, clear liquid diet refusing to take oral meds. no needs voiced at the time.
--- NOTE | 2021-09-23 20:00 | NUR ---
pt on room air, clear lungs, ascitic abd, yellow skin colored and sclera ivf infusing. pt declined assessment after nurse started listening to her lungs, angry tone, declines po lactulose, will try again if if she still refuses will ask again if she declines po will try the rectal route as ordered, declines vs at this time or sips of fluids. turns and repositions self in bed. clear speech. bed alarm on
--- NOTE | 2021-09-23 22:36 | NUR ---
pt declined po lactulose 1999 and 2199, offered numerous times. Lactulose given rectally, pt not very coop, procedure explained. continues to refuse po lactulose.
--- NOTE | 2021-09-23 22:45 | NUR ---
PT ASKED FOR SOME APPLE JUICE, PROVIDED, ASSISTING TO THE BSC, VOID, BM, LACTULOSE MIXTURE, 900MLS TOTAL, PT WONDERING TO THE BATHROOM, STATES I NEED THE BATHEROOM, PT THEN C/O NOT BEING ABLE TO GO, EXPLAINED TO PT SHE ALREADY FINISHED, PT BACK TO BED, ALARMS ON, NO FURTHER NEEDS
--- NOTE | 2021-09-24 00:31 | NUR ---
RESTING, EYS CLOSED, OPENS EASILY, DECLINES PO LACTULOSE, DR KHAN NOTIFIED, 'CONTINUE GIVING RECTALLY IF SHE REFUSES PO"
--- NOTE | 2021-09-24 02:44 | NUR ---
pt continues to decline po lactulose, 200mg given rectally, procedure explained, pt semi cooperative, partial assessment completed. na bicarb infusing, tolerating well
--- NOTE | 2021-09-24 02:55 | NUR ---
ASSISTED PT BACK TO BED, BED ALARM IS SET, NO FURTHER NEEDS
--- NOTE | 2021-09-24 03:01 | NUR ---
BED ALRM GOING OFF, PT GOT OUT OF BED, DISCONNECTD IV CABLES, AND WALKED TO BR, VOIDED AND HAD LIQUID BM. BACK TO BED. TOLERATED WEL,, STILL IRRITABLE, AFFECT, NOT VERY VERBALLY APPROPRIATE, BACK TO BED, REPOSITIONS SELF
--- NOTE | 2021-09-24 06:05 | NUR ---
PT HAS SLEPT, ON ROOM AIR, CLEAR LUNGS, DISTENDED ASCITIC ABD, HEA. JAUNDICED SKIN AND SCLERA. IRRITBLE AFFECT, INAPPROPRIATE VERBAL LANGUAGE, REDIRECTABLE. CONTINUES TO DECLINE PO LACTULOSE, HAS RECEIVED RECTAL LACTULOSE 200MG EACH TIME, SHE HAS REFUSED PO. IT HAS BEEN EFFECTIVE HAS HAD SEVERAL LIQUID BM LARGE AMOUNT AND HAS VOIDED QS. HAS GOT OUT OF BED, WALKED TO BR, AFTER SETTING BED ALARMS OFF AND SHE WAS ABLE TO DISCONNECT THE ELECTRIC IVF PUMPS PLUG FROM THE WALL APPROPRIATELY, NO GAIT PROBLEMS, HAS DONE OWN JOSE CARE. HAS REFUSED BP, HAS TRIED SEVERAL TIMES AND PT JUST WIGGLES ARMS AND LEGS WHEN TRYING TO GET READING, UNABLE TO DO SO. CHARGE NURSE NOTIFIED. DR KHAN WAS NOTIFIED LAST NIGHT OF PTS CONTINUEOUS REFUSAL TO TAKE PO LACTULOSE. PROCEDURE EXPLAINED EACH TIME TO PT SEVERAL TIMES, AND SHE CONTINEUS TO DECLINE BOTH LACTULOSE OPTIONS. NA BICARB INFUSING E/O PROBLEMS. HAS TOLERATED WELL. HAS DECLINED FLUIDS, DID TOOK SIPS OF APPLE JUICE EARLIER ON. STILL REFUSING ALL CARE. CONTINUE TO EXPLAIN ALL PROCEDURES PRIOR TO, CONTINUES TO REINFORCE COMPLIANCE WITH PO LACTULOSE INTAKE AND POC. FALL AND ASPIRATION PRECAUTIONS IN PLACE. SAFETY REASSURED. REDIRECTABLE AT TIMES
--- NOTE | 2021-09-24 07:22 | NUR ---
Dr Mohan notified of holding 0600 Lactulose as she had 3 bm's. "Oh OK, change the lactulose orders po and rectal as previously ordered", will notify pharmacy and incoming RN
--- NOTE | 2021-09-24 07:44 | NUR ---
MED REC COMPLETED BY PHARMACY
--- NOTE | 2021-09-24 07:47 | NUR ---
PT AWAKE, TOSSING AND TURNING IN BED. FRESH WATER AND A CUP OF ICE WAS BROUGHT. PT IS DISTRAUGHT. PT CRYING AND REPEATING "I'M SO TIRED OF THIS... SO SO TIRED OF THIS." AM CARE GIVEN. WHITE BOARD UPDATED, CALL LIGHT WITHIN REACH. NO FURTHER NEEDS AT THIS TIME.
--- NOTE | 2021-09-24 08:10 | NUR ---
report recieved from assistant casino shift manager, patient in bed resting, bed alarm community relations representative light within reach, blood glucose check 119, no need for treatment.
--- NOTE | 2021-09-24 09:10 | NUR ---
SPOKE WITH PATIENT IN ROOM. PATIENT AWAKE, ORIENTED TO PERSON AND PLACE. STATES "I FEEL LIKE SHIT". PATIENT STATES SHE STILL LIVES IN SAME APARTMENT AND SISTER LIVES THERE IN SAME COMPLEX AND HELPS AND CHECKS ON HER. SHE PLANS TO RETURN HOME. SHE DOES NOT THINK SHE NEEDS ANYTHING. HAS A RIDE HOME IF SHE CALLS. PATIENT WANTS TO EAT SOME BREAKFAST. DOESN'T SEEM VERY INTERESTED IN COVERSATION. CM WILL FOLLOW NEEDED.
--- NOTE | 2021-09-24 09:30 | NUR ---
PT LAYING IN BED CRYING. PT INITALLY REFUSED TO HAVE THIER BP TAKEN. ANDREI PARADA ASSISTED IN PERSUADING PT TO ALLOW BP TO BE TAKEN. CALL LIGHT WITHIN REACH, NO FURTHER NEEDS AT THIS TIME. WILL BE BACK FOR I&O'S.
--- NOTE | 2021-09-24 09:51 | EKG ---
[facility] [address] [place], [place] [address] Signed Normal sinus rhythm Normal ECG When compared with ECG of 03-SEP-2021 13:15, No significant change was found Confirmed by RAUL KHAN MD ([id number]) on 09/24/2021 9:51:02 AM Electronically Signed By: RAUL KHAN MD 09/24/21 0951 PATIENT NAME: ELSA VELARDEZurdo CHARLESE Electrocardiogram DATE OF : 65 PHYSICIAN: RAUL KHAN MD REPORT #: [id number] REPORT IS CONFIDENTIAL AND NOT TO BE RELEASED WITHOUT AUTHORIZATION
--- NOTE | 2021-09-24 11:31 | NUR ---
PATIENT REQUESTING FOOD, PER DR BILL JIMENEZ TO ADVANCE DIET.
--- NOTE | 2021-09-24 12:33 | NUR ---
PT SITTING IN CHAIR- ALERT AND ORIENTED. PT LOOKS ALITTLE ROUGH, SAID SHE FEELS CRAPPY. DISCOURAGED SHE HAS HAD TO BE READMITTED. SPENT TIME WITH PT ENCOURAGING, DEBRIEFING. PT REQUESTED I CONTACT HER [facility] AND INFORM THEM SHE IS HERE, CONTACT MADE. PT REQUESTED PRAYER, LEFT G.POST AND BIBLE. WILL FOLLOW
--- NOTE | 2021-09-24 12:53 | NUR ---
Patient provided with lunch tray, tolerating diet, patient more cooperative with cares, taking oral meds, Yoseph provided patient with bible and visit with patient. denies needs at the time.
--- NOTE | 2021-09-24 13:40 | NUR ---
PT VERY QUIET. ONLY RESPONDING BY NODDING YES OR NO. ANDREI PARADA UPDATED. CALL LIGHT WITHIN REACH, NO FURTHER NEEDS AT THIS TIME. WARM BLANKETS BROUGHT.
--- NOTE | 2021-09-24 17:49 | NUR ---
ASSISTED PT TO BATHROOM. PT WAS A LITTLE UNSTEADY ON FEET AND HAD TO TOUCH THE WALL FOR SUPPORT WHILE WALKING. CALL LIGHT WITHIN REACH, NO FURTHER NEEDS AT THIS TIME
--- NOTE | 2021-09-24 18:53 | NUR ---
rn to round on patient, patient denies any needs at the moment, call light within reach.
--- NOTE | 2021-09-24 19:32 | NUR ---
PATIENT WAS VERY COOPERATIVE DOING HER BLOOD SUGAR CHECKS TODAY.
--- NOTE | 2021-09-24 19:57 | NUR ---
PROTIEN PACK PROVIDED TO PT, PT CHATTING ON THE PHONE, NO FURTHER NEEDS
--- NOTE | 2021-09-24 21:56 | NUR ---
Out of bed to , independent in room, much more alert and orientedX4, no gait problems. Coop with assessment and vital signs. On room air, clear lungs, sl RFA intact, patent, bruised areas over arms . tolerating liquids well. voiding QS dark yellow urine, has had 2 bm's this shift. does own erich care. repositions self in bed, reading her bible, skin less jaundiced. coop, call light at bedside, warm tea given at her request
--- NOTE | 2021-09-24 23:13 | NUR ---
tolerataing fluids well, up to br, had liquid bowel movement, voided, back to bed, tolerated well.
--- NOTE | 2021-09-25 01:26 | NUR ---
awake, no c/o pain, on room air. cooperative, pleasant, talkative, coop with assessment. skin less jaundiced, up to br, had s liquid stool and voided, unknown amount as she empties hat off. instructed to leave for nursing staff for documentation, stated understanding, tolerating large amount of liquids, no emesis, no gait problems, no sob. uses call light.
--- NOTE | 2021-09-25 03:37 | NUR ---
reating, eyes closed, on room air, no distress, fluids and call light at hands reach.
--- NOTE | 2021-09-25 05:24 | NUR ---
Pt has slept off and on, on room air, much improved affect and mentality pleasant, alert and oriented, cooperative, skin less jaundiced, having liquid stools, voiding QS, independent in room. sl patent. tolerating liquids and diet well. denies c/o pain, uses call light, Cbg wnl, no coverage needed
--- NOTE | 2021-09-25 07:25 | NUR ---
this rn received report from kristian jo. pt appears to be resting comfortalby with respirations noted
--- NOTE | 2021-09-25 08:15 | NUR ---
THIS RN IN PTS ROOM TO GIVE PT MORNNG MEDS. PT STATES THAT SHE IS FEELING GOOD THIS AM. PT REQUESTING TO STAY IN BED. PT STATES THAT SHE IS JUST WANTING THE CORRECT BREAKFAST ORDER AND THAT'S IT. PT DISSMISSIVE AND JUST WANTS TO BE LEFT ALONE THIS AM.
--- NOTE | 2021-09-25 08:17 | NUR ---
PT EATING BREAKFAST. PT ACCEPTED WARM CLOTH FOR FACE. PT REFUSED CHAIR. ANDREI MEJIA NOTIFIED. CALL LIGHT WITHIN REACH, NO FURTHER NEEDS. UPDATED WHITE BOARD AND OPENED BLINDS.
--- NOTE | 2021-09-25 08:55 | NUR ---
TRIED GETTING PT UP IN CHAIR AGAIN. PT ADAMANTLY REFUSED SAYING THEY DID NOT SLEEP WELL LAST NIGHT AND JUST WANTED TO STAY IN BED. ANDREI MEJIA NOTIFIED. CALL LIGHT WITHIN REACH. NO FURTHER NEEDS AT THIS TIME
--- NOTE | 2021-09-25 08:59 | NUR ---
ANDREI MEJIA NOTIFIED OF PT NOT HAVING ANY OUTPUT THIS MORNING.
--- NOTE | 2021-09-25 11:50 | NUR ---
THIS RN IN PTS ROOM TO GIVE MIDDAY MEDS. THIS RN PROVIDED PT WITH 2 UNITS OF INSULIN AND LACTUALOSE- PT JOKING ABOUT NOT TAKING LACTULOSE- THIS RN DIDN'T TAKE A JOKE AND EDUCATED PT TO IMPORTANCE OF MED. THIS RN SET UP PTS SHOWER FOR HER PER REQUEST AND THIS RN REMOVED PTS IV DUE TO PAIN AND INABILITY TO FLUSH.
[2021-09-25] MEDS ORDERED: IRON325 M1 PO (13:36)
== END 2021-09-25 13:35 | disposition home or self-care (01) ==
LOC: ED 13:11 → MS 13:12 → ED 16:23 → MS 16:23
PROVIDERS: ADMIT Internal Medicine; ATTEND Internal Medicine
DX: K72.00 Acute and subacute hepatic failure without coma (principal); B19.20 Unspecified viral hepatitis C without hepatic coma; K76.6 Portal hypertension; I12.9 Hypertensive chronic kidney disease with stage 1 through stage 4 chronic kidney disease, or unspecified chronic kidney disease; N18.4 Chronic kidney disease, stage 4 (severe); E11.22 Type 2 diabetes mellitus with diabetic chronic kidney disease; Z79.4 Long term (current) use of insulin; Z20.822 Contact with and (suspected) exposure to COVID-19
CPT/HCPCS: 71045; 80053; 81001; 82140; 84484; 85007; 85025; 93005; 93010; 99285-25; C9803; G0480; J1815; J7070; J7121; U0003

== ENCOUNTER 2021-10-02 07:56 | Inpatient (IN) | payer MEDICARE, OTHER ==
[~2021-10-02] VITALS: Ht 160 cm; Wt 69.7 kg
[~2021-10-02 07:56] MED LIST changes: +IRON325 M1 PO
--- OUTSIDE RECORDS SUMMARY | 2021-10-02 08:00 | XMS ---
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 [place] VISIT COUNT (12 MO.) 1 [facility] TOTAL 13 NOTE: Visits indicate total known visits. ED/UCC VISIT TRACKING (12 MO.) 10/02/2021 07:59 [place] [place] TYPE: Emergency COMPLAINT: - ALTERED 09/03/2021 11:46 [facility] [place] TYPE: Emergency COMPLAINT: - ALTERED MENTAL STATUS 08/26/2021 11:48 [facility] [place] TYPE: Emergency COMPLAINT: - ALOC 08/24/2021 10:43 Nolan [place] TYPE: Emergency COMPLAINT: - Abdominal mass / distenstion_PARACENTESIS - UNSPECIFIED ABDOMINAL PAIN - SHORTNESS OF BREATH - OTHER ASCITES DIAGNOSES: 0. Unspecified abdominal pain 1. Other ascites 5. Unspecified cirrhosis of liver 6. Unspecified viral hepatitis C without hepatic coma 7. correction (current) use of insulin 08/17/2021 15:06 [facility] [place] TYPE: Emergency COMPLAINT: - LOWER BACK/ABD PAIN DIAGNOSES: - Unspecified abdominal pain - Type 2 diabetes mellitus without complications - Gastro-esophageal reflux disease without esophagitis - Somnolence - intermediate frame tender (current) use of insulin - Other fdc (current) drug therapy - Hypokalemia 08/14/2021 10:32 [facility] Collin [place] TYPE: Emergency DIAGNOSES: - Abdominal Pain - Other ascites - Liver disease, unspecified - needs fluid drained from stomach 08/13/2021 17:58 [facility] DIAGNOSES: - periantesis - Other ascites - Abdominal Distension 08/06/2021 11:14 [facility] DIAGNOSES: - Abdominal Distension; SOB - Other ascites - Medical Problem (Minor) - Hepatic failure, unspecified without coma 07/31/2021 13:13 [place] [place] COMPLAINT: - WEAKNESS 2021 09:07 [facility] [place] TYPE: Emergency COMPLAINT: - ALTERED LOC 06/11/2021 09:20 [facility] [place] TYPE: Emergency COMPLAINT: - ALTERED MENTAL STATUS, NO EATING/DRINK, FATIGUE 05/10/2021 15:22 [facility] Luz [place] TYPE: Emergency DIAGNOSES: - Other ascites - fluid drained from stomach - Abdominal Pain 05/03/2021 17:50 [facility] [place] TYPE: Emergency COMPLAINT: - DOG BITE DIAGNOSES: - Other fdc (current) drug therapy - Type 2 diabetes mellitus without complications - Open bite, left lower leg, initial encounter - intermediate frame tender (current) use of opiate analgesic - Plantar fascial fibromatosis - correction (current) use of insulin - Gout, unspecified - Open bite, left lower leg, initial encounter - Bitten by dog, initial encounter INPATIENT VISIT TRACKING (12 MO.) 09/23/2021 13:12 [facility] [place] TYPE: Observation COMPLAINT: - HEPATIC ENCEPH DIAGNOSES: - Hepatic failure, unspecified without coma - intermediate frame tender (current) use of insulin - Acute and subacute hepatic failure without coma - Portal hypertension - Chronic kidney disease, stage 4 (severe) - Unspecified viral hepatitis C without hepatic coma - Type 2 diabetes mellitus with diabetic chronic kidney disease - Hypertensive chronic kidney disease with stage 1 through stage 4 chronic kidney disease, or unspecified chronic kidney disease 09/03/2021 16:02 [place] [place] TYPE: Medical Surgical COMPLAINT: - HEPATIC ENCEPHALOPATHY DIAGNOSES: - Chronic kidney disease, stage 4 (severe) - Anemia in chronic kidney disease - Type 2 diabetes mellitus with diabetic chronic kidney disease - Gastro-esophageal reflux disease without esophagitis - correction (current) use of insulin - Type 2 diabetes mellitus with diabetic chronic kidney disease - Dehydration - Dehydration - Portal hypertension - Anemia in other chronic diseases classified elsewhere - correction (current) use of insulin - Hypersplenism - Postprocedural hepatic failure - Hypersplenism - Gastro-esophageal reflux disease without esophagitis - Unspecified viral hepatitis C without hepatic coma - Unspecified cirrhosis of liver - Unspecified viral hepatitis C without hepatic coma - Unspecified cirrhosis of liver - Other pancytopenia - Other fdc (current) drug therapy - Anemia in other chronic diseases classified elsewhere - Anemia in chronic kidney disease - Other pancytopenia - Chronic kidney disease, stage 4 (severe) - Portal hypertension - Other long line teamster (current) drug therapy 08/26/2021 13:[address] [facility] [place] TYPE: Medical Surgical COMPLAINT: - HEPATIC ENCEPHALOPATHY DIAGNOSES: - Unspecified cirrhosis of liver - Personal history of other infectious and parasitic diseases - Hypertensive chronic kidney disease with stage 1 through stage 4 chronic kidney disease, or unspecified chronic kidney disease - Portal hypertension - Other pancytopenia - Other fdc (current) drug therapy - Dehydration - Other specified postprocedural states - Acute and subacute hepatic failure without coma - Gastro-esophageal reflux disease without esophagitis - Hypertensive chronic kidney disease with stage 1 through stage 4 chronic kidney disease, or unspecified chronic kidney disease - correction (current) use of insulin - Hypersplenism - Acidosis - Type 2 diabetes mellitus with diabetic chronic kidney disease - Gastro-esophageal reflux disease without esophagitis - Dehydration - Other fdc (current) drug therapy - Chronic kidney disease, stage 4 (severe) - COVID-19 - Unspecified cirrhosis of liver - Portal hypertension - Hypersplenism - Chronic kidney disease, stage 4 (severe) - Type 2 diabetes mellitus with diabetic chronic kidney disease - Other specified postprocedural states - intermediate frame tender (current) use of insulin - COVID-19 - Acidosis - Secondary esophageal varices without bleeding - Personal history of other infectious and parasitic diseases 07/31/2021 17:24 [place] [place] TYPE: Observation COMPLAINT: - HEPATIC ENCEPHALOPATHY DIAGNOSES: - COVID-19 - Urinary tract infection, site not specified - Unspecified viral hepatitis C without hepatic coma - Metabolic encephalopathy - correction (current) use of insulin - Type 2 diabetes mellitus with diabetic chronic kidney disease - Hepatic failure, unspecified without coma - Chronic kidney disease, stage 4 (severe) 2021 13:07 [facility] [place] TYPE: Medical Surgical COMPLAINT: - HEPATIC ENCEPHALOPATHY DIAGNOSES: - correction (current) use of insulin - Portal hypertension - Chronic kidney disease, stage 4 (severe) - Other long line teamster (current) drug therapy - Acute and subacute hepatic failure without coma - Type 2 diabetes mellitus with diabetic chronic kidney disease - Unspecified cirrhosis of liver - Unspecified viral hepatitis C without hepatic coma - Gastro-esophageal reflux disease without esophagitis 06/11/2021 16:23 [place] [place] TYPE: Medical Surgical COMPLAINT: - ENCEPHALOPATHY DIAGNOSES: - correction (current) use of insulin - Chronic kidney [...] - Other specified postprocedural states - Other long line teamster (current) drug therapy - Metabolic encephalopathy - correction (current) use of systemic steroids - Aphasia - intermediate frame tender (current) use of systemic steroids - intermediate frame tender (current) use of insulin - Other long line teamster (current) drug therapy [email or web address]
--- NOTE | 2021-10-02 11:00 | NUR ---
PT ARRIVED IN CCU AT 1040. PT IS NOT RESPONSIVE AT ALL. PT ONLY HAS OCCASIONAL FLINCH TO PAINFUL STIMULI. PT ABLE TO MAINTAIN AIRWAY. PT HOWEVER SEEMS TO CLENCH HER TEETH AT TIMES. PT HAS [place]. JVD PRESENT ABOUT 1-2CM ABOVE CLAVICLE. PUPILS ARE AT 3MM AND LEFT PUPIL IS NORMAL REACTIVE, RIGHT ONE IS SLUGGISH. ABD BOWEL TONES ARE DIMINISHED AND RARE, ABD IS DISTENED AND SKIN IS JAUNDICE. ALL LOBES ARE CLEAR, O2 SATS WDL. PT HAS NON-PITTING EDEMA IN [place]. LEGS/ARMS AND HANDS. BP ELEVATED.
--- NOTE | 2021-10-02 11:19 | NUR ---
Medications reconciled using discharge orders from last week and pharmacy records
--- NOTE | 2021-10-02 13:00 | NUR ---
PT STATUS UNCHANGED AT THIS TIME. NO BM SO FAR.
--- NOTE | 2021-10-02 13:45 | NUR ---
PT IS OPENING HER EYES TO VOICE COMMAND. PT STILL HAS NOT HAD A BM. LACTULOSE ENEMEA TO BE GIVEN NOW.
--- NOTE | 2021-10-02 15:50 | NUR ---
PT AT THIS TIME IS OPENING HER EYES TO NOISE. PT ALSO IS SPEAKING IN WORDS. WORDS ARE ALL PROFANITIES HOWEVER. OVERALL STRENGTH IS +5. PT DOES NOT FOLLOW COMMANDS AT ALL JUST YET. ALL LOBES ARE CLEAR, ABD SOUNDS ARE RARE. THIS MAY BE DUE TO ABDOMEN BEING DISTENDED. IT MAY JUST BE HARD TO HEAR ANY BOWEL TONES. PERIPH. EDEMA UNCHANGED, JAUNDICE UNCHANGED, URNIE OUTPUT WDL SO FAR. V/S WDL WITH SOME ELEVATED BP'S. WILL CONTINUE TO MONITOR.
--- NOTE | 2021-10-02 17:15 | NUR ---
PT DID JUST TRY TO CLIMB OUT OF BED. PT STILL ONLY SPEAKS IN PROFANITIES. BG 195, COVERED WITH 3 UNITS OF INSULIN. PT JUST NOW HAD A SMALL LIQUID BM. URINE OUPUT ADEQUATE. NO NEW CONCERNS NOTED AT THIS TIME.
--- NOTE | 2021-10-02 18:30 | NUR ---
PT NOW HAD HER FIRST BM. PT WAS CHANGED AND CLEANED UP. PT NOW IS GETTING MORE PHYSICAL WITH STAFF.
--- NOTE | 2021-10-02 19:15 | NUR ---
REPORT RECIEVED, CARE OF PATIENT ASSUMED AT THIS TIME. PT RESTING ON LEFT SIDE, IV FLUIDS INFUSING. SPO2 =100 % CALL LIGHT WITHIN REACH AND BED ALARM IN PLACE.
--- NOTE | 2021-10-02 19:40 | NUR ---
ASSESSMENT COMPLETED. PT HAD LARGE LIQUID INCONTINENT BM. COMPLETED BED CHANGED AN INCONTINENT CARE DONE. PT KICKING AND SWINGING ARMS WHEN TRYING TO CHANGE PT. NOW LAYING ON LEFT SIDE. WARM BLANKETS PROVIDED. BED ALARM IN PLACE. WILL CONTINUE TO CLOSELY MONITOR.
--- NOTE | 2021-10-02 20:57 | NUR ---
in unit of insulin given per sliding scale. iv fluids infusing. pt remains disoriented but responsive to touch and voice. Bed alarm in place. Will continue to monitor.
--- NOTE | 2021-10-02 23:40 | NUR ---
ASSESSMENT COMPLETED. PT AWAKE WITH EYES OPEN, STATING "OH SHIT. OH FUCK" WILL NOT RESPOND TO QUESTIONS ABOUT PAIN BUT DID SHAKE HER HEAD YES WHEN ASKED IF SHE WANTED A WARM BLANKET. PT HEART RATE IN THE 90S AT REST. SPO2 =100% ON ROOM AIR. RESPIRATIONS EVEN AND UNLABORED. NASSAR CATH CONTINUES TO DRAIN LIGHT YELLOW URINE. BED ALARM IN PLACE. CALL LIGHT WITHIN REACH. WILL CONTINUE TO MONITOR.
--- NOTE | 2021-10-03 01:30 | NUR ---
PT ASLEEP ON BACK ASLEEP. BREATHING EVEN AND UNLABORED. SPO2 =100%, RR=15. IV FLUIDS INFUSING. BED ALARM IN PLACE. CALL LIGHT WITHIN REACH. WILL CONTINUE TO MONITOR.
--- NOTE | 2021-10-03 03:00 | NUR ---
ASSESSMENT COMPLETED. BLOOD PRESSURE CUFF REMOVED AT THIS TIME TO KEEP PT FROM PULLING AT LINES. PT THRASHING IN THE AIR THEN SETTLES BACK DOWN TO SLEEP AFTER CARES ARE COMPLETED. BED ALARM IN PLACE, CALL LIGHT WITHIN REACH. WILL CONTINUE TO MONITOR.
--- NOTE | 2021-10-03 05:44 | NUR ---
BED BATH AND COMPLETE BED CHANGE DONE AT THIS TIME. PT COMBATIVE, TRYING TO GET OUT OF BED. WARM BLANKETS AND REORIENTATION ATTEMPTED. IV FLUIDS CONTINUE TO INFUSE BED ALARM IN PLACE. WILL CONTINUE TO CLOSELY MONITOR.
--- NOTE | 2021-10-03 07:49 | NUR ---
IN PATIENT'S ROOM FOR ATTENDS TO BE CHANGED PATIENT HAS HAD ANOTHER LIQUID BM. PT NOT TOLERATING STAFF HELPING HER BE CHANGED AND WILL CONSTANTLY PULL AWAY, PUSH OUR HANDS AWAY, AND TRY TO PUT HER HANDS UNDER HER BOTTOM. REORIENTED PATIENT BEST POSSIBLE BUT PATIENT IS NON VERBAL EXCEPT FOR SAYING "SHIT" AND "FUCK" AND "STOP!" HR IN THE 80s AT THIS TIME. NEW CHUX PAD PLACED UNDER PATIENT WITH ATTENDS ON. NASSAR CARE ATTEMPTED BUT PATIENT VERY RESISTANT TO BEING CLEANED. NASSAR DRAINING CLEAR YELLOW URINE. BED ALARM ON FOR SAFETY.
--- NOTE | 2021-10-03 09:22 | NUR ---
PATIENT'S SISTER CALLED AND REQUESTING AN UPDATE ON PATIENT. UPDATE PROVIDED BY THIS RN. PT'S SISTER TIANA STATES THAT DERIC HAS RECENTLY BEEN "APPROVED BY HER MEDICAID TO GO ON THE LIVER TRANSPLANT LIST, AND THAT HER DOCTORS IN [place] HAVE BEEN WAITING FOR THAT APPROVAL BEFORE THEY REFURBISH HER TIPS PROCEDURE." PT'S PHYSICIAN IN [place] IS DR. HEMANTH MARI, AND THE PHONE NUMBERS PROVIDED BY TIANA ARE [phone] OR [phone]. PT STILL LETHARGIC, BUT DOES OPEN EYES EASILY TO VOICE. PT DOES NOT ANSWER QUESTIONS HOWEVER.
--- NOTE | 2021-10-03 09:42 | NUR ---
DR. JAY IN ROOM TO SEE PATIENT AT THIS TIME. PT STILL NOT COMPLIANT WITH ASSESSMENT, BUT DOES SHAKE HEAD YES/NO TO VARIOUS QUETSIONS. LACTULOSE ENEMA TO BE GIVEN.
--- NOTE | 2021-10-03 10:50 | NUR ---
PATIENT GIVEN LACTULOSE ENEMA WITH 300 ML WARM TAP WATER. PT STILL VERY VERBAL WITH SAYING "AH SHIT" AND "FUCK" BUT PATIENT DOES NOT ANSWER QUESTIONS APPROPRIATELY. PT TOLERATED ENEMA FAIR. THEN ABOUT 10 MINUTES LATER, PATIETN NOTED TO BE GETTING SELF OUT OF BED BED ALARM GOES OFF. PT IS STABLE ON FEET BUT ATTACHED TO MONITORS AND IV. PT HELPED TO BEDSIDE COMMODE WHERE SHE IS NOW HAVING A BM. SEWER PIPE OFFBEARER STAYIGN AT SIDE OF PATIENT. PT ABLE TO STATE HER NAME BUT NOTHING ELSE.
--- NOTE | 2021-10-03 11:22 | NUR ---
PATIENT SET OFF BED ALARM. THIS NAIL PULLER AND RN'S IN ROOM. PATIENT TO BSC AND BACK TO BED, SBA. JOSE CARE DONE. NEW ATTENDS IN PLACE. BED ALARM ON. CALL LIGHT IN REACH. NO FURTHER NEEDS AT THIS TIME.
--- NOTE | 2021-10-03 16:00 | NUR ---
PATIENT'S IV IN RIGHT FOREARM INFILTRATED AND THEREFORE D/C. NEW IV WAS PLACED IN LEFT UPPER ARM AFTER 3 UNSUCCESFUL ATTEMPTS, AND FINALLY ULTRASOUND WAS UTILIZED. PATIENT'S LACTULOSE DOSE WAS DUE AT 1500, BUT SHE WAS INITIALLY REFUSING TO TAKE THE LACTULOSE FROM THE SMALL CUPS THAT IT COMES IN. PT WAS WILLING TO DRINK WATER. PATIENT STILL WAS NOT MENTATING CLEARLY AND KEPT SAYING "NO" WHEN ASKING HER TO TAKE HER LACTULOSE. MANY ATTEMPTS MADE TO EXLAIN TO PATIENT THE RATIONALE FOR THE NEED OF THIS LACTULOSE, BUT PATIENT STILL REFUSING. LACTULOSE WAS THEN MIXED INTO HER WATER AND SHE WAS ABLE TO AND WILLING TO DRINK IT THIS WAS.
--- NOTE | 2021-10-03 17:15 | NUR ---
PATIENT NOTED TO BE GETTING UP OUT OF BED AND HELPED ONTO BSC TO HAVE A LARGE LIQUID BM. NEW ATTETNDS PLACED ON PATIENT ONCE IN BED. PT WAS STILL RELUCTANT TO ALLOW THIS RN TO CLEAN HER BOTTOM WELL AFTER HAVING THESE LOOSE STOOLS. ATTEMPTS MADE TO CLEAN AROUND NASSAR CATHETER BEST POSSIBLE BUT PATIENT VERY STIFF, ADAMENT AND STATES, "NO NO NO!" PATIENT ALSO BECOMES TEARFUL VERY EASILY WHEN TRYING TO PROVIDE CARES FOR HER. ATTEMPTS AT REASSURING HER ARE MADE. PT DOES SEEM TO BE UNDERSTANDING MORE AND STARTING TO COMMUNICATE A LITTLE MORE THAN BEFORE, BUT STILL DOES NOT SEEM IN HER NORMAL STATE OF MIND. WILL CONTINUE TO MONITOR. BED ALARM TO REMAIN ON FOR SAFETY AND BED IN LOWEST POSITION. IVF CONTINUE AT 125 ML/HR FOR THIS 1 L, THEN WILL RETURN TO SODIUM BICARB DRIP AT 50 ML/HR.
--- NOTE | 2021-10-03 18:15 | NUR ---
PATIENT CONTINUES TO REST AT THIS TIME IN BED. PT WILL ANSWER YES/NO QUESTIONS AND IS MORE ALERT. PT GIVEN WARM BLANKETS SHE IS NOTED TO BE TRYING TO COVER HERSELF UP WITH HER BLANKETS. HR IN THE 80s. PT REMAINS ON ROOM AIR AND SP02 IS 99-100%.
--- NOTE | 2021-10-03 19:25 | NUR ---
REPORT RECIEVED FROM DAY SHIFT NURSE. CARE OF PT ASSUMED AT THIS TIME.
--- NOTE | 2021-10-03 21:00 | NUR ---
ASSESSMENT COMPLETED. PT GIVEN 1 UNIT OF INSULIN PER SLIDING SCALE. PT ALERT AND ANSWERING YES AND NO QUESTIONS. IV FLUIDS INFUSING. PT DENIES PAIN. GIVEN WARM BLANKETS. CALL LIGHT WITHIN REACH. BED ALARM IN PLACE. WILL CONTINUE TO MONITOR.
--- NOTE | 2021-10-03 23:00 | NUR ---
pT UP TO BSC. 200 MLS OF LIQUID STOOL OUT. PT IS MORE ORIENTED, STEADY ON HER FEET, FOLLOWING DIRECTIONS AND ANSWERING QUESTIONS APPROPRIATELY. BACK IN BED, WARM BLANKETS PROVIDED. CALL LIGHT WITHIN REACH. WILL CONTINUE TO MONITOR.
--- NOTE | 2021-10-04 01:00 | NUR ---
ASSESSMENT COMPLETED. PT SEEMS TO BECOMING MORE ORIENTED. HEART RATE IN THE 80S AT REST. SPO2 = 99%. DENIES PAIN, BUT STATES NASSAR CATHETER IS UNCOMFORTABLE. ASSISTED PT WITH REPOSITIONING IN BED, CALL LIGHT WITHIN REACH AND BED ALARM IN PLACE. WILL CONTINUE TO MONITOR.
--- NOTE | 2021-10-04 04:00 | NUR ---
RESPONDED TO PT CALL LIGHT. PT NEEDED TO USE BSC. REQUESTED MADAY BE DC'D. PT COMPLETELY ALERT AND ORIENTED AT THIS TIME. ASKED IF DR KHAN WAS THE DOCTOR AND ALSO ASKED WHICH DEPARTMENT SHE WAS IN AT THE HOSPITAL. REORIENTED PT TO TIME, DATE, AND LOCATION. PT STEADY ON FEET. BACK IN BED. GIVEN PUDDING. PT REQUESTING BREAKFAST. DISCUSSED PLAN OF CARE. CALL LIGHT WITHIN REACH. WILL CONTINUE TO MONITOR.
--- NOTE | 2021-10-04 05:01 | NUR ---
PT BACK UP TO BSC. STEADY ON FEET WITH STANDING AND TRANSFERRING. PT BACK IN BED. GIVEN WATER. CALL LIGHT WITHIN REACH. NO FURTHER NEEDS AT THIS TIME.
--- NOTE | 2021-10-04 07:38 | NUR ---
DR. JAY IN TO SEE PATIENT AT THIS TIME. PATIENT MORE ALERT, TALKATIVE, AND INTERACTIVE. PT WANTING TO GET A HOLD OF HER DAUGHTER AND CAN'T REMEMBER HER PHONE NUMBER AT THIS TIME. ASSESSMENT COMPLETE. PT REPORTS FEELING SLIGHTLY DISTENDED BUT NOT TOO BAD.
--- NOTE | 2021-10-04 08:30 | NUR ---
PATIENT HELPED UP TO CHAIR FOR BREAKFAST. PT STEADY ON FEET, BUT HER RIGHT FOOT IS HURTING QUITE LOT FROM HER PLANTAR FASCITIS. PT REQUESTING THAT HER SISTER BRING IN HER BRACE THAT SHE HAS AT HOME, WHICH HELPS WITH THE PAIN OF THIS. PT IS TEARFUL THIS AM. LONG DISCUSSION HAD WITH PATIENT REGARDING DIAGNOSIS, HER PROGRESSION OF HER DISESE PROCESS, AND HER FUTURE TREATMENT OPTIONS. PT IS ADAMENT THAT SHE IS COMPLIANT WITH HER MEDICATIONS, NAMELY HER LACTULOSE. PATIENT REMINDED THAT IT IS CRUCIAL FOR HER TO TAKE THIS MEDICATION THROUGHOUT THE DAY PRESCRIBED, EVEN IF SHE HAS ALREADY HAD 4-5 BMs IN THE AM. PT STATES THAT SHE DOES. PT RECALLS STAYING WITH HER DAUGHTER OVERNIGHT BUT DOENS'T KNOW WHAT HAPPENED NEXT, JUST REMEMBERS "COMING TO" THIS AM AT 0200. IVF ARE NOW D/C. PT ATE ABOUT 50% OF HER BREAKFAST. PT ON THE PHONE WITH HER BOYFRIEND WELL HER SISTER. PT TO TRANSFER TO THE MEDICAL FLOOR. DR. JAY DISCUSSING WITH PATIENT THAT SHE MAY NEED A PARACENTESIS AT SOME POINT SOON. PT NOTES THAT SHE HAD AN APPT WITH DR. COFFEY THIS AM AND REQUESTS THAT WE CALL TO CANCEL THAT APPT. THIS WAS DONE BY OUR PILING SETTER IN CCU AROUND 0900. DR. JAY ALSO INDICATES THAT SHE WILL BE REACHING OUT TO DR. MARI AT [facility] REGARDING PATIENT.
--- NOTE | 2021-10-04 09:26 | NUR ---
SEAMING MACHINE OPERATOR IN ROOM TO PERFORM ECHO. PT HAS BEEN SITTING UP IN CHAIR AND NOW IS IN BATHROOM BEFORE LAYING BACK DOWN. PT HAS VISITOR IN ROOM.
--- NOTE | 2021-10-04 10:44 | NUR ---
REPORT GIVEN TO ANDREI POLLOCK ON MED/SURG. PATIENT WILL BE TRANSFERRED TO MED/SURG ROOM 107 IN THE BED. ALL PERSONAL BELONGINGS WILL BE TAKEN WITH PATIENT.
--- NOTE | 2021-10-04 10:45 | NUR ---
REPORT RECIEVED [facility] ANDREI.
--- NOTE | 2021-10-04 11:05 | NUR ---
PATIENT ARRIVED TO MED SURG ROOM 107 VIA BED. PATIENT DENIES NEEDS AT THIS TIME, RESTING IN BED AND WATCHING TV. PATIENT IS ORIENTED X3, CALL LIGHT IS IN HAND.
--- NOTE | 2021-10-04 12:48 | NUR ---
PATIENT WITH POOR APPETITE FOR LUNCH AND ONLY EATING A COOKIE. 5 UNITS OF NOVOLOG PER SLIDING SCALE GIVEN, PLAN TO HOLD THE INSULIN WITH MEAL DOSE FOR NOW.
--- NOTE | 2021-10-04 13:30 | NUR ---
PATIENT IN BED WATCHING TV. VITALS AND I&O'S CHARTED. CALL LIGHT IN REACH. NO FURTHER NEEDS AT THIS TIME.
--- NOTE | 2021-10-04 15:25 | NUR ---
PATIENT GIVEN AFTERNOON LACTULOSE. PATIENT WILL HAVE A SHOWER SOON.
--- NOTE | 2021-10-04 18:10 | NUR ---
PATIENT SITTING IN EDGE OF BED, SISTER IN ROOM. VITALS AND I&O'S CHARTED. CALL LIGHT IN REACH. NO FURTHER NEEDS AT THIS TIME.
--- NOTE | 2021-10-04 18:26 | NUR ---
PATIENT VISITING WITH HER SISTER. DISCUSSED WITH PATIENT THAT SHE WOULD LIKELY HAVE PARENCENTISIS TOMORROW OR THE NEXT DAY.
--- NOTE | 2021-10-04 19:23 | NUR ---
REPORT RECEIVED FROM DAY SHIFT RN. PT SITTING UP IN BED ALERT AND ORIENTED. DENIES NEEDS AT THIS TIME. WHITE BOARD UPDATED. CALL LIGHT IN REACH.
--- NOTE | 2021-10-04 21:55 | NUR ---
EVENING ASSESSMENT COMPLETE. SCHEDULED MEDS ADMINISTERED PER EMAR. PT DENIES PAIN OR NAUSEA. SBA TO BR TO VOID AND HAVE LOOSE BM. PT TO SINK TO WASH HANDS. BACK TO BED, DALILA WELL. VS AND I&O COMPLETE. PROTEIN PACK PROVIDED PER PT REQUEST. WARM BLANKET PROVIDED. PT DENIES QUESTIONS OR CONCERNS. CALL LIGHT IN REACH. BED ALARM FOR SAFETY.
--- NOTE | 2021-10-04 22:15 | NUR ---
CALL LIGHT ANSWERED. SBA TO THE BATHROOM AND BACK IN BED. PATIENT'S LEFT OVER SNACK PACK WAS PUT IN THE FRIDGE WITH NAME. PATIENT ASKED FOR SLEEP TIME TEA AND PROVIDED BY ANDREI COLBERT.
--- NOTE | 2021-10-05 00:38 | NUR ---
CALL LIGHT ANSWERED. PT UP TO BR WITH SBA TO VOID 100 ML YELLOW URINE AND HAVE GREEN LIQUID BM. GAIT UNSTEADY AT TIMES. FWW PROVIDED. BACK TO BED, DALIAL WELL. BED ALARM FOR SAFETY. CALL LIGHT IN REACH.
--- NOTE | 2021-10-05 02:43 | NUR ---
PT UP TO BR WITH SBA AND FWW TO VOID AND HAVE LIQUID BM. BACK TO BED, DALILA WELL. ASSESSMENT COMPLETE. BED ALARM FOR SAFETY. NO FURTHER NEEDS.
--- NOTE | 2021-10-05 06:00 | NUR ---
PT RESTING IN BED WITH EYES CLOSED. RESPIRATIONS EVEN. NO APPARENT DISTRESS. BED ALARM FOR SAFETY. CALL LIGHT IN REACH.
--- NOTE | 2021-10-05 07:25 | NUR ---
this rn received report from joshua jo. pt appears to be resting comfortably at this time with respirations
--- NOTE | 2021-10-05 08:45 | NUR ---
THIS RN IN PTS ROOM TO GIVE MORNING MEDS. THIS RN IN PTS ROOM WITH JAHAIRA [facility]. PT SIGNED CONSENT TO HAVE PARACENTSIS DONE TODAY AFTER CALLING HER SISTER TO CONFIRM WHEN HER LAST PARACENTSIS WAS. PT NOT CONSENTING TO BLOOD ADMIN AT THIS TIME.
--- NOTE | 2021-10-05 09:30 | NUR ---
Spoke with Niki. Cont. to live in an apt. Sister helps her when needed . Daughter also helps. Daughter is OT and told her, her walker is too small. Pt states she got it for free. notified and walker ordered through [facility] and they will deliver tomorrow. Pt states she is very close to being placed on the liver transplant list. Pt. awaiting paracen tisis tomorrow. Plans on dc to home when able to dc.
--- NOTE | 2021-10-05 10:30 | NUR ---
PT OFF FLOOR AT THIS TIME TO US FOR PARACENTESIS. PT TRANSFERRED IN WC WITH [facility] MEDICAL TECHNOLOGIST GENERALIST JAHAIRA.
--- NOTE | 2021-10-05 11:00 | NUR ---
PT BACK TO ROOM AT THIS TIME. PT TRANSFERRED TO ROOM 115.
--- NOTE | 2021-10-05 12:03 | NUR ---
THIS RN IN PTS ROOM WITH [facility] JAHAIRA RAYGOZA TO GIVE 1 UNIT OF INSULIN. ALL PTS QUESTIONS ANSWERED ABOUT PLAN OF CARE FOR NEW PLAN FOR PARACENTSIS.
--- NOTE | 2021-10-05 15:00 | NUR ---
THIS RN IN PTS ROOM TO GIVE PT HER AFTERNOON MEDS. PT STATES THAT SHE IS DOING WELL BUT ISN'T EXCITED ABOUT HAVING TO TAKE LACTULOSE- THIS RN STARTED TO EDUCATE PT ABOUT MED- PT STATED SHE WAS KIDDING. PT REPORTS THAT SHE NEEDS NOTHING ELSE AT THIS TIME. PT IN CHAIR. PTS SISTER AT BEDSIDE AT [facility].
--- NOTE | 2021-10-05 17:10 | NUR ---
THIS RN IN PTS ROOM TO GIVE PT HER POTASSIUM. PT NOT TO GET INSULIN DUE TO BS OUT OF PARAMETERS. PT STATES THAT SHE IS DOING WELL, JUST NEEDS ICE FOR HER SODA- NO OTHER NEEDS. PTS SISTER AT BEDSIDE AT THIS TIME.
--- NOTE | 2021-10-05 18:15 | NUR ---
PATIENT UP TO BATHROOM AND BACK TO BED, SBA FWW. SISTER IN ROOM. VITALS AND I&O'S CHARTED. CALL LIGHT IN REACH. NO FURTHER NEEDS AT THIS TIME.
--- NOTE | 2021-10-05 19:38 | NUR ---
REPORT RECEIVED FROM DAY SHIFT RN. PT LYING IN BED ALERT AND ORIENTED. DENIES NEEDS. WHITE BOARD UPDATED. CALL LIGHT IN REACH. BED ALARM FOR SAFETY.
--- NOTE | 2021-10-05 20:15 | NUR ---
SCHEDULED MEDS ADMINISTERED. LACTULOSE ADMINISTERED EARLY PER PT REQUEST SO SHE IS ABLE TO SLEEP. FERROUS SULFATE ADMINISTERED WHEN SODIUM BICARB SHOULD HAVE BEEN ADMINISTERED. DR. JAY NOTIFIED OF ERROR. WILL ADMINISTER FERROUS SULFATE AT NEXT MED PASS.
--- NOTE | 2021-10-05 21:30 | NUR ---
V/S AND I&O'S DONE. BLOOD SUGAR CHECK DONE. HER LEFT OVER PROTIEN SNACK AND SLEEPYTIME TEA PER HER REQUEST PROVIDED. ICE WATER AND CUP OF ICE PROVIDED.
--- NOTE | 2021-10-05 21:50 | NUR ---
EVENING ASSESSMENT COMPLETE. SCHEDULED MEDS ADMINISTERED PER EMAR. PT DENIES PAIN OR NAUSE. ABD SOFT AND DISTENDED. BOWEL TONES HYPERACTIVE. PT UP TO BR WITH FWW AND SBA TO VOID. BACK TO BED, DALILA WELL. SNACK AND FRESH WATER PROVIDED. PT DENIES QUESTIONS OR CONCERNS. CALL LIGHT IN REACH. BED ALARM FOR SAFETY.
--- NOTE | 2021-10-06 00:47 | NUR ---
PT RESTING IN BED LYING ON LEFT SIDE. EYES CLOSED. RESPIRATIONS EVEN. CALL LIGHT IN REACH. BED ALARM FOR SAFETY.
--- NOTE | 2021-10-06 04:21 | NUR ---
PT RESTING ON RIGHT SIDE WITH EYES CLOSED. NO APPARENT DISTRESS. CALL LIGHT IN REACH. BED ALARM FOR SAFETY.
--- NOTE | 2021-10-06 05:55 | NUR ---
VS AND I&O OBTAINED, WNL. PT DENIES PAIN OR NAUSEA. DENIES NEEDS. CALL LIGHT IN REACH. BED ALARM FOR SAFETY.
--- NOTE | 2021-10-06 07:11 | NUR ---
this rn received report from joshua jo. pt appears to be resting with respirations noted.
--- NOTE | 2021-10-06 08:45 | NUR ---
THIS RN IN PTS TO GIVE MORNING MEDS. PT STATES THAT SHE GOT A GOOD NIGHTS REST. PT HAS NOT COMPLAINTS THIS AM. PT SITTING UP IN CHAIR WITH CALL LIGHT WITHIN REACH. THIS RN DISCUSSED WITH PT ABOUT PLAN OF DAY. PT AGREEABLE THIS RN HELD PTS LACTULOSE PER MD ORDERS IN ORDER TO DO PARACENTESIS.
--- NOTE | 2021-10-06 10:10 | NUR ---
PT HAS VISTORS FROM HER [facility] IN TO SEE HER AT THIS TIME.
--- NOTE | 2021-10-06 10:40 | NUR ---
Spoke with Niki. She is awaiting her paracentesis. Plans on dc this afternoon if all goes well. Sister will transport her. She would like to know how to obtain a handicap parking permit. Encouraged her to speak with her PCP when she sees them for her follow up appt.
--- NOTE | 2021-10-06 11:02 | NUR ---
THIS RN HAD PT INTIAL HER CONSENT THAT SHE SIGNED YESTERDAY FOR THE PARACENTESIS TO CHANGE THE DATE ON IT FOR THE PARACENTESIS TODAY.
--- NOTE | 2021-10-06 11:11 | NUR ---
Patient has no requests at this time. I&Os are complete.
--- NOTE | 2021-10-06 11:30 | NUR ---
pt off floor to ultrasound for paracentesis.
--- NOTE | 2021-10-06 12:30 | NUR ---
PT ARRIVED BACK FROM PROCEDURE AT THIS TIME. PT STATES THAT SHE FEELS BETTER. PT SHOWED THIS RN THAT SHE COULD HOLD HER ABDOMINAL SKIN IN HER HANDS BECAUSE PRIOR TO HER PARACENTSIS PT COULD NOT DO THIS. PTS ABDOMEN IS ONLY MILDLY DISTENDED AT THIS TIME. PT REPORTS NO PAIN. PT TO SIT IN CHAIR WITH CALL LIGHT WITHIN REACH. BANDAID TO COVER PTS PUNCTURE SITE FROM PARACENTSIS- SLGIHT DRAINAGE NOTED AT SITE.
--- NOTE | 2021-10-06 13:58 | NUR ---
PT ALERT, ORIENTED AND GOT HER CONNECTED WITH HER RECLAIMER THAT WAS COMING TO VISIT. WILL FOLLOW NEEDED
--- NOTE | 2021-10-06 15:00 | NUR ---
THIS RN IN PTS ROOM TO START PTS ALBUMIN AT THIS TIME. PT IN BED AND WARM BLANKETS PROVIDED TO PT.
--- NOTE | 2021-10-06 15:00 | NUR ---
Jorge L delivered from [facility]. Pt plans on dc today.Denies needs.
--- NOTE | 2021-10-06 15:07 | NUR ---
Patient is sitting on the side of the bed with the RN. Patient said she is interested in a shower maybe sometime today. Supplies will be set up in her room.
== END 2021-10-06 16:15 | disposition home or self-care (01) | DRG 441 ==
LOC: ED 07:56 → CCU 10:16 → MS 10:16
PROVIDERS: ADMIT Student in an Organized Health Care Education/Training Program; ATTEND Student in an Organized Health Care Education/Training Program
PROC: 0W9G3ZZ Drainage of Peritoneal Cavity, Percutaneous Approach (ICD-10-PCS; principal; 2021-10-06)
DX: K72.00 Acute and subacute hepatic failure without coma (principal); G93.41 Metabolic encephalopathy; N18.4 Chronic kidney disease, stage 4 (severe); K76.6 Portal hypertension; E87.2 Acidosis; R18.8 Other ascites; N17.9 Acute kidney failure, unspecified; K74.60 Unspecified cirrhosis of liver; Z20.822 Contact with and (suspected) exposure to COVID-19; E87.6 Hypokalemia; E11.22 Type 2 diabetes mellitus with diabetic chronic kidney disease; D73.1 Hypersplenism; D64.9 Anemia, unspecified; D69.6 Thrombocytopenia, unspecified; E87.5 Hyperkalemia; I08.0 Rheumatic disorders of both mitral and aortic valves; K21.9 Gastro-esophageal reflux disease without esophagitis; Z79.4 Long term (current) use of insulin; Z79.899 Other long term (current) drug therapy; B18.2 Chronic viral hepatitis C
CPT/HCPCS: 49083; 51702; 70450; 71045; 76705; 80053; 80500; 81001; 82140; 82803; 82945; 84157; 85007; 85025; 85610; 87070; 87075; 87205; 89051; 93306; 99285-25; C9803; G0480; J1815; J3480; J7030; J7070; J7121; P9047; U0003

== ENCOUNTER 2021-10-12 09:29 | Observation (INO) | payer MEDICARE, OTHER ==
[~2021-10-12] VITALS: Ht 160 cm; Wt 71.0 kg
--- OUTSIDE RECORDS SUMMARY | 2021-10-12 09:36 | XMS ---
PreManage Notification: LAURIE VELARDE Security Area Director Of Home Health Sales Events No recent Security Events currently on file CRITERIA MET - [facility] - 2 Visits in 30 Days - 6 ED Visits in 6 Months - [facility] - 3 Facilities in 90 Days CARE PROVIDERS Kyra Irene Accounting/Finance Tutor/Gravity Manager 08/20/2021-Current PHONE: [phone] FELIX LOUIE [facility] Medicine 10/17/2016-Current PHONE: [phone] LINDA COFFEY [facility] 08/30/2021-Current PHONE: [phone] Luciano has no Care Guidelines for this patient. [facility].D. VISIT COUNT (12 MO.) [facility] TOTAL [facility] NOTE: Visits indicate total known visits. ED/UCC VISIT TRACKING (12 MO.) 10/12/2021 09:30 [facility] [place] TYPE: Emergency COMPLAINT: - UNCONCIOUS,LIVER FAILURE 10/08/2021 11:04 [facility] [place] TYPE: Emergency COMPLAINT: - ALTERED LOC 10/02/2021 07:[address] [facility] [place] TYPE: Emergency COMPLAINT: - ALTERED 09/03/2021 11:[address] [facility] [place] TYPE: Emergency COMPLAINT: - ALTERED MENTAL STATUS 08/26/2021 11:[address] [facility] [place] TYPE: Emergency COMPLAINT: - ALOC 08/24/2021 10:43 [facility] TYPE: Emergency COMPLAINT: - Abdominal mass / distenstion_PARACENTESIS - UNSPECIFIED ABDOMINAL PAIN - SHORTNESS OF BREATH - OTHER ASCITES DIAGNOSES: 0. Unspecified abdominal pain 1. Other ascites 5. Unspecified cirrhosis of liver 6. Unspecified viral hepatitis C without hepatic coma 7. custodial (current) use of insulin 08/17/2021 15:[address] [facility] [place] TYPE: Emergency COMPLAINT: - LOWER BACK/ABD PAIN DIAGNOSES: - Unspecified abdominal pain - Type 2 diabetes mellitus without complications - Gastro-esophageal reflux disease without esophagitis - Somnolence - custodial (current) use of insulin - Other long-term (current) drug therapy - Hypokalemia 08/14/2021 10:32 [facility] TYPE: Emergency DIAGNOSES: - Abdominal Pain - Other ascites - Liver disease, unspecified - needs fluid drained from stomach 08/13/2021 17:58 [facility] [place] TYPE: Emergency DIAGNOSES: - periantesis - Other ascites - Abdominal Distension 08/06/2021 11:14 [facility] [place] TYPE: Emergency DIAGNOSES: - Abdominal Distension; SOB - Other ascites - Medical Problem (Minor) - Hepatic failure, unspecified without coma 07/31/2021 13:13 [facility] [place] TYPE: Emergency COMPLAINT: - WEAKNESS 2021 09:07 [facility] [place] TYPE: Emergency COMPLAINT: - ALTERED LOC 06/11/2021 09:20 [facility] [place] TYPE: Emergency COMPLAINT: - ALTERED MENTAL STATUS, NO EATING/DRINK, FATIGUE 05/10/2021 15:22 [facility] [place] TYPE: Emergency DIAGNOSES: - Other ascites - fluid drained from stomach - Abdominal Pain 05/03/2021 17:50 [facility] TYPE: Emergency COMPLAINT: - DOG BITE DIAGNOSES: - Other long-term (current) drug therapy - Type 2 diabetes mellitus without complications - Open bite, left lower leg, initial encounter - custodial (current) use of opiate analgesic - Plantar fascial fibromatosis - custodial (current) use of insulin - Gout, unspecified - Open bite, left lower leg, initial encounter - Bitten by dog, initial encounter INPATIENT VISIT TRACKING (12 MO.) 10/08/2021 11:05 [facility] [place] TYPE: Observation COMPLAINT: - HEPATIC ENCEPHALOPATHY DIAGNOSES: - Chronic kidney disease, stage 4 (severe) - Hepatic failure, unspecified without coma - tank terminal gauger (current) use of insulin - Portal hypertension - Hypertensive chronic kidney disease with stage 1 through stage 4 chronic kidney disease, or unspecified chronic kidney disease - Type 2 diabetes mellitus with diabetic chronic kidney disease - Acute and subacute hepatic failure without coma - Unspecified viral hepatitis C without hepatic coma 10/02/2021 10:16 [facility] [place] TYPE: Medical Surgical COMPLAINT: - HEPATIC ENCEPHALOPATHY DIAGNOSES: - Metabolic encephalopathy - Hyperkalemia - Rheumatic disorders of both mitral and aortic valves - Acute and subacute hepatic failure without coma - Unspecified cirrhosis of liver - Portal hypertension - Metabolic encephalopathy - Acidosis - Chronic kidney disease, stage 4 (severe) - Hypokalemia - Unspecified viral hepatitis C without hepatic coma - Other ascites - Portal hypertension - custodial (current) use of insulin - Type 2 diabetes mellitus with diabetic chronic kidney disease - Type 2 diabetes mellitus with diabetic chronic kidney disease - Chronic viral hepatitis C - Other rodent exterminator (current) drug therapy - Thrombocytopenia, unspecified - Thrombocytopenia, unspecified - Hypersplenism - Unspecified cirrhosis of liver - Acute kidney failure, unspecified - Hypersplenism - Anemia, unspecified - Hyperkalemia - Chronic kidney disease, stage 4 (severe) - Anemia, unspecified - Gastro-esophageal reflux disease without esophagitis 09/23/2021 13:12 [facility] [place] TYPE: Observation COMPLAINT: - HEPATIC ENCEPH DIAGNOSES: - Hepatic failure, unspecified without coma - tank terminal gauger (current) use of insulin - Acute and [...] - Gastro-esophageal reflux disease without esophagitis - custodial (current) use of insulin - Type 2 diabetes mellitus with diabetic chronic kidney disease - Dehydration - Dehydration - Portal hypertension - Anemia in other chronic diseases classified elsewhere - custodial (current) use of insulin - Hypersplenism - Postprocedural hepatic failure - Hypersplenism - Gastro-esophageal reflux disease without esophagitis - Unspecified viral hepatitis C without hepatic coma - Unspecified cirrhosis of liver - Unspecified viral hepatitis C without hepatic coma - Unspecified cirrhosis of liver - Other pancytopenia - Other rodent exterminator (current) drug therapy - Anemia in other chronic diseases classified elsewhere - Anemia in chronic kidney disease - Other pancytopenia - Chronic kidney disease, stage 4 (severe) - Portal hypertension - Other rodent exterminator (current) drug therapy 08/26/2021 13:56 [facility] [place] TYPE: Medical Surgical COMPLAINT: - HEPATIC ENCEPHALOPATHY DIAGNOSES: - Unspecified cirrhosis of liver - Personal history of other infectious and parasitic diseases - Hypertensive chronic kidney disease with stage 1 through stage 4 chronic kidney disease, or unspecified chronic kidney disease - Portal hypertension - Other pancytopenia - Other rodent exterminator (current) drug therapy - Dehydration - Other specified postprocedural states - Acute and subacute hepatic failure without coma - Gastro-esophageal reflux disease without esophagitis - Hypertensive chronic kidney disease with stage 1 through stage 4 chronic kidney disease, or unspecified chronic kidney disease - custodial (current) use of insulin - Hypersplenism - Acidosis - Type 2 diabetes mellitus with diabetic chronic kidney disease - Gastro-esophageal reflux disease without esophagitis - Dehydration - Other rodent exterminator (current) drug therapy - Chronic kidney disease, stage 4 (severe) - COVID-19 - Unspecified cirrhosis of liver - Portal hypertension - Hypersplenism - Chronic kidney disease, stage 4 (severe) - Type 2 diabetes mellitus with diabetic chronic kidney disease - Other specified postprocedural states - custodial (current) use of insulin - COVID-19 - Acidosis - Secondary esophageal varices without bleeding - Personal history of other infectious and parasitic diseases 07/31/2021 17:24 [facility] [place] TYPE: Observation COMPLAINT: - HEPATIC ENCEPHALOPATHY DIAGNOSES: - COVID-19 - Urinary tract infection, site not specified - Unspecified viral hepatitis C without hepatic coma - Metabolic encephalopathy - custodial (current) use of insulin - Type 2 diabetes mellitus with diabetic chronic kidney disease - Hepatic failure, unspecified without coma - Chronic kidney disease, stage 4 (severe) 2021 13:07 [facility] [place] TYPE: Medical Surgical COMPLAINT: - HEPATIC ENCEPHALOPATHY DIAGNOSES: - custodial (current) use of insulin - Portal hypertension - Chronic kidney disease, stage 4 (severe) - Other rodent exterminator (current) drug therapy - Acute and subacute hepatic failure without coma - Type 2 diabetes mellitus with diabetic chronic kidney disease - Unspecified cirrhosis of liver - Unspecified viral hepatitis C without hepatic coma - Gastro-esophageal reflux disease without esophagitis 06/11/2021 16:[address] [facility] [place] TYPE: Medical Surgical COMPLAINT: - ENCEPHALOPATHY DIAGNOSES: - custodial (current) use of insulin - Chronic kidney [...] - Other specified postprocedural states - Other rodent exterminator (current) drug therapy - Metabolic encephalopathy - tank terminal gauger (current) use of systemic steroids - Aphasia - tank terminal gauger (current) use of systemic steroids - tank terminal gauger (current) use of insulin - Other rodent exterminator (current) drug therapy [email or web address]
--- NOTE | 2021-10-12 12:13 | NUR ---
MED REC COMPLETE
--- NOTE | 2021-10-12 12:27 | NUR ---
56 YEAR OLD FEMALE PATIENT ADMITTED TO CCU FROM ED VIA STRETCHER UNDER DR. KHNA WITH DX OF AMS, LIVER DISEASE. AMMONIA ON ADMIT 304. DID RECIEVE 1 LACTULOSE ENEMA IN ED. PATIENT WAS DISCHARGED FROM HOSPITAL 10/10/21. NOW IS COVID POSITIVE. UPON ADMIT TO CCU PATIENT IS VERY LETHARGIC. ADMISSION PROCESS STARTED.
--- NOTE | 2021-10-12 13:15 | NUR ---
LASIX 40 MG IV GIVEN ORDERED. UP TO BR TO VOID. BACK TO BED W/O INCIDENT.
--- NOTE | 2021-10-12 13:37 | EKG ---
[facility] [address] [facility] [address] [place], [place] [address] Signed Normal sinus rhythm Normal ECG When compared with ECG of 08-OCT-2021 11:15, No significant change was found Confirmed by RAUL KHAN MD ([id number]) on 10/12/2021 1:37:40 PM Electronically Signed By: RAUL KHAN MD 10/12/21 1337 PATIENT NAME: ELSA VELARDEZurdo CHARLESE Electrocardiogram DATE OF : 65 PHYSICIAN: RAUL KHAN MD REPORT #: [id number] REPORT IS CONFIDENTIAL AND NOT TO BE RELEASED WITHOUT AUTHORIZATION
--- NOTE | 2021-10-12 14:30 | NUR ---
REMAINS OBTUNDED. ACCUCHECK 132. LACTULOSE ENEMA GIVEN, TOLERATED WELL. REPOSITIONED. WILL WITHDRAWL TO DEEP PAINFUL STIMULI OCCASIONALLY. WILL OPEN EYES BUT NOT FOCUSING.
--- NOTE | 2021-10-12 16:00 | NUR ---
ASSESSMENT UNCHANGED. ECHO COMPLETE.
--- NOTE | 2021-10-12 17:12 | NUR ---
Cont. to live in an apartment in same complex as her sister. Daughter and sister assist her as needed. Pt cont. await placement onto liver transplant list. Pt + for covid this admission. Pt plans on dc to home when cleared medically.
--- NOTE | 2021-10-12 18:00 | NUR ---
INC OF LARGE LIQUID STOOL. LACTULOSE EMEMA REPEATED. PATIENT IS MUCH MORE RESISTANT TO TREATMENT, PUSHING ME AWAY AND USING CUSS WORDS. DIFFICULT TO REPOSITION. IS NOT ABLE TO FOLLOW COMMANDS, IS MOVING ALL EXTREMITIES. NO RESP DISTRESS NOTED.
--- NOTE | 2021-10-12 19:25 | NUR ---
REPORT TO NEXT SHIFT.
--- NOTE | 2021-10-12 19:30 | NUR ---
PATIENT REPORT RECIEVED ANDREI CARUSO. PATIENT IS RESTING IN BED. BREATHING EQUAL AND UNLABORED. CALL LIGHT WITHIN REACH NO FUTHER NEEDS.
--- NOTE | 2021-10-12 19:53 | NUR ---
PATIENT ASSESSMENT COMPLETE. BLOOD SUGAR CHECK COMPLETE WITHIN RANGE. PATIENT WAS ABLE TO OPEN EYES WHEN TALKING TO HER. ABLE TO MOVE EXTERMITIES WHEN ASKED. PATIENT LUNG SOUNDS ARE CLEAR THROUGHOUT. OXYGEN SATURATIONS ARE WNL. HEART RATE IS IN SINUS RHYTHM AND 70-90'S BPM. PATIENT IS AFEBIRLE. URINE OUTPUT IS CLEAR AND YELLOW. PATIENT ABDOMEN IS DISTENDED. PATIENT APPEARS TO BE JAUNDICE. BOWEL SOUNDS ARE ACTIVE. O.45% NS RUNNING AT 125 MLS/HR. PLAN OF CARE UPDATED. CALL LIGHT WITHIN REACH NO FUTHER NEEDS. BED ALARM ON
--- NOTE | 2021-10-12 21:00 | NUR ---
PATIENT INCONTINENT OF LIQUID STOOL. LACTULOSE ENEMA COMPLETED. PATIENT RESISTANT TO CARE. PATIENT PUSHING AGAINST STAFF. CALL LIGHT WITHIN REACH NO FUTHER NEEDS. BED ALARM ON
--- NOTE | 2021-10-12 23:00 | NUR ---
PATIENT ASSESSMENT COMPLETE. PATIENT HAD FOURTH BOWEL MOVEMENT. LACTULOSE ENEMAS CHANGED TO QID. PATIENT IS MORE ALERT RESISTING CARE FROM STAFF. PATIENT IS SAYING ONE TO TWO WORDS AT A TIME. LUNG SOUNDS ARE CLEAR THROUGHOUT. OXYGEN SATURATIONS ARE WNL. BREATHING IS EQUAL AND UNLABORED. PATIENT IS IN SINUS RHYTHM AND HEART RATE IS IN THE 70-90 BPM. ABDOMEN REGION DISTENTED. BOWEL SOUNDS ARE ACTIVE. PLAN OF CARE UPDATED. CALL LIGHT WITHIN REACH NO FUTHER NEEDS. BED ALARM ON
--- NOTE | 2021-10-13 01:30 | NUR ---
PATIENT REPOSITIONED IN BED.TURNED TO RIGHT SIDE. PATIENT WAS ABLE TO TELL THIS RN THAT SHE WAS NOT IN ANY PAIN. PATIENT DID NOT HAVE A BM. CALL LIGHT WITHIN REACH NO FUTHER NEEDS.
--- NOTE | 2021-10-13 04:00 | NUR ---
PATIENT ASSESSMENT COMPLETE. PATIENT IS ABLE TO ANSWER YES OR NO QUESTIONS AND SAYS ONE TO TWO WORDS. PATIENT DENIES ANY PAIN. LUNG SOUNDS ARE CLEAR THROUGHOUT. OXYGEN SATURATIONS ARE WNL ON ROOM AIR. HEART RATE IS SINUS RHYTHM AFEBIRLE. URINE IS YELLOW AND CLEAR. NO BM. BOWEL TONES ARE ACTIVE. PLAN OF CARE UPDATED. CALL LIGHT WITHIN REACH NO FUTHER NEEDS. BED ALARM ON
--- NOTE | 2021-10-13 06:00 | NUR ---
PATIENT REPOSITIONED IN BED. BREATHING IS EQUAL AND UNLABORED. PATIENT DENIES FEELING ANY PAIN AT THIS TIME.
--- NOTE | 2021-10-13 07:30 | NUR ---
REPORT RECIEVED. PATIENT IS RESTFUL IN BED. IVF PATENT, NASSAR CATH PATENT.
--- NOTE | 2021-10-13 08:02 | NUR ---
ZOFRAN 4 MG IV GIVEN FOR NAUSEA.
--- NOTE | 2021-10-13 09:01 | NUR ---
BED ALARM SOUNDING PATIENT IS ATTEMPTING MAKE HER WAY TO BSC. THIS PIPE TURNER IN TO ASSIST. CLEAN LINEN AND BRIEF PROVIDED. PATIENT DISORIENTED, CURSING, REQURING SEVERAL CUES TO REDIRECT. PATIENT BACK TO BED, WARM BLANKET PROVIDED. BED ALARM ON FOR SAFETY. CALL LIGHT IN REACH
--- NOTE | 2021-10-13 09:45 | NUR ---
Brief conversation with Niki. Plans on dc to home when she is medically cleared.
--- NOTE | 2021-10-13 10:00 | NUR ---
PATIENT IS VERY RESISTANT TO TAKING LACTULOSE, NEEDS MUCH ENCOURAGEMENT. IT TOOK APPROX 20 MIN TO GET PATIENT TO TAKE LACTULOSE. IS VERY TEARY AT TIMES. MOANS FREQUENTLY, HAVING ABD CRAMPS.
--- NOTE | 2021-10-13 10:30 | NUR ---
REFUSING COVID TEST.
--- NOTE | 2021-10-13 13:03 | NUR ---
BED ALARM SOUNDING, PATIENT AT SIDE OF BED. THIS COAL CHEMIST IN ROOM TO ASSIST PATIENT TO BSC FOR BM. PATIENT EASILY REDIRECTABLE. BACK TO BED, BED ALARM ON FRO SAFETY. CALL LIGHT IN EASY REACH
--- NOTE | 2021-10-13 14:18 | NUR ---
PT ASLEEP AND UNDER PRECAUTIONS. INFORMED ANDREI CARUSO TO LET PT KNOW I WILL CONECT WITH HER BY PHONE, ANDREI CARUSO ACKNOWLEDGED
--- NOTE | 2021-10-13 15:30 | NUR ---
ASKING FOR FOOD.
--- NOTE | 2021-10-13 16:10 | NUR ---
SITTING UP IN BED TO TAKE HAMBUGER AND FRIES. ACCUCHECK 178, HUMALOG 2 UNITS SQ TO BE GIVEN. IVF REMAIN AT 125 ML/HR. ASSESSMENT DONE. ABD REMAINS DISTENDED.
--- NOTE | 2021-10-13 18:50 | NUR ---
OOB TO COMMODE TO EXPELL LIQUID STOOL.
--- NOTE | 2021-10-13 19:51 | NUR ---
PATIENT OUT OF BED WITHOUT ASSIST. BED ALARM ALERTED STAFF. PATIENT TO [facility]. 450MLS LIQUID BM. PATIENT COMPLAINS OF PAIN ON HER "BOTTOM". BARRIER CREAM APPLIED AFTER CLEANED WITH WET WIPE. PATIENT HAD TAKEN STAT LOCK OFF LEG AND PULLING ON NASSAR. PATIENT RETURNED TO BED. BALLON DEFLATED AND ADVANCED, PATIENT TOLERATED WELL. PATIENT CONTINUES TO COMPLAIN OF PAIN BUT DOES NOT ANSWER PAIN ASSESSMENT. DENIES OFFERS TO REPOSITION OR HOT/COLD TREATMENTS. BED ALARM ACTIVE. REMINDED PATIENT TO USE BED ALARM.
--- NOTE | 2021-10-13 20:36 | NUR ---
PATIENT OUT OF BED WITHOUT ASSISTANCE. BED ALARM ALERTED STAFF. PATIENT ON OPPOSITE SIDE OF BED FROM MONITOR AND NASSAR BAG. ASSISTED TO BSC. IV SITE IRRITATED BUT FLUSHED WELL, REENFORCED DRESSING. PATIENT HAD BM. MOANS AND COMPLAINS LOUDLY. IS UNABLE TO VERBALIZE SOURCE OF PAIN. WHEN ASKED SPECIFICALLY IF IT WAS THE NASSAR SHE SAID YES. DISCUSSED WITH MD AND ORDERS TO DC. BALLOON DEFLATED AND NASSAR REMOVED, APPEARS TO BE JUST INSIDE THE URETHRA AT THIS POINT. NO OUTWARD SIGNS OF TRAUMA. PATIENT DOES NOTT ANSWER ORIENTATION QUESTIONS. TOLERATING ROOM AIR. LUNG SOUNDS CLEAR. VS STABLE. ABD IS TENDER AND DISTENDED. IVF PER ORDER. PATIENT TOOK PO LATULOSE AFTER MUCH ENCOURAGEMENT. BED ALARM ON, CALL LIGHT IN REACH. REMINDED PATIENT TO USE CALL LIGHT.
--- NOTE | 2021-10-13 22:15 | NUR ---
PATIENT MOVING TOWARD EDGE OF BED. BED ALARM ALERTED STAFF. PATIENT FOLLOWED INSTRUCTIONS TO GET OUT OF BED ON THE SIDE WITH THE MONITOR TO THE BSC. PATIENT IS MOSTLY STEADY. REPORTS FEELING BETTER WITHOUT NASSAR. COMPLAINS SLIGHTLY WHEN HAVING BM AND WHEN THIS RN WIPED AREA. BARRIER CREAM APPLIED AGAIN. LEADS REPLACED DUE TO PATIENT PULLING AT CARDIAC WIRES. PATIENT RETURNED TO BED. BED ALARM ACTIVE. REMINDED PATIENT TO CALL BEFORE EXITING BED.
--- NOTE | 2021-10-13 22:54 | NUR ---
PATIENT RESTING IN BED. EYES OPEN WHEN RN OPENS THE DOOR. ASKED PATIENT IS SHE WAS DOING OKAY, SHE REPLIED "YES". APPEARS COMFORTABLE. CALL LIGHT IN REACH. BED ALARM ACTIVE.
--- NOTE | 2021-10-13 23:31 | NUR ---
PATIENT IS FIGETING WITH CARDIAC LEADS AND GOWN. REPORTING BEING ITCHY. ENCOURAGED PATIENT TO LEAVE LEADS IN PLACE. REMOVED GOWN AND COVERED PATIENT WITH BLANKETS ONLY. PATIENT MORE SETTLED. BED ALARM ACTIVE. CALL LIGHT IN REACH.
--- NOTE | 2021-10-14 01:00 | NUR ---
RESPONDED TO BED ALARM. PT SITTING AT SIDE OF BED, NEEDS TO USE BATHROOM. PT UP TO BSC, STEADY ON FEET. PT HAD 325ML MIXED URINE AND LIQUID STOOL. PERICARE PROVIDED, BARRIER CREAM APPLIED. PT ASSISTED TO PUT GOWN BACK ON. PT DENIES FURTHER NEEDS, CALL LIGHT WITHIN REACH. BED ALARM ON.
--- NOTE | 2021-10-14 02:00 | NUR ---
CALL LIGHT ANSWERED. PT HAD PULLED IV FROM LEFT AC. CATHETER TIP INTACT. BANDAGE PLACED ON SITE, NEW PILLOW CASE PLACED ON PILLOW. PT DENIES NEEDS. BED ALARM REMAINS ON.
--- NOTE | 2021-10-14 04:15 | NUR ---
PATIENT USED CALL LIGHT. RECOGNIZED THIS RN AND CALLED ME BY NAME WHEN ENTERING THE ROOM. PATIENT IS ALERT AND ORIENTED X4. ASKING QUESTIONS ABOUT WHEN SHE GOT HERE AND WHAT DAY IT IS. PATIENT VERY UPSET WHEN SHE REALIZES IT IS THANKSGIVING DAY. OFFERED TO CALL HER FAMILY FOR HER, PATIENT IS NOT READY. SNACK PROVIDED PER REQUEST. PATIENT HAD AN UNMEASURED VOID AND MORE LIQUID STOOL. AGREEABLE TO REPEAT COVID SWAB. RT CALLED. VS STABLE. PATIENT REQUEST TO LEAVE CARDIAC LEADS OFF DUE TO ITCHY, LEFT OFF AT THIS TIME. PATIENT ENCOURAGED TO TAKE FLUIDS, NO IV SITE AT THIS TIME. PATIENT DIFFICULT STICK, WILL ATTEMPT NEW SITE WITH MORNING LAB DRAW.
--- NOTE | 2021-10-14 06:00 | NUR ---
PATIENT CALLED SEVERAL TIMES FOR WATER AND SNACKS. PATIENT IS WANTING TO SHOWER AND WAS UP TO THE BATHROOM TO VOID AND HAVE BM. UNMEASURED. PATIENT PROVIDED WITH FRESH GOWN, UNABLE TO TAKE TO MS TO SHOWER AT THIS TIME. DISCUSSED OPTION TO SHOWER ON DAYSHIFT.
--- NOTE | 2021-10-14 07:30 | NUR ---
UPDATE PROVIDED TO MD. PATIENT MENTATION CLEARED. NO IV SITE OR FOUNDATION DIRECTOR DUE TO AGITATION. NO NEW ORDERS.
--- NOTE | 2021-10-14 07:34 | NUR ---
REPORT RECEIVED FROM ANDREI OLMOS. THIS RN ASSUMING CARE OF PT.
--- NOTE | 2021-10-14 07:57 | NUR ---
MORNING ASSESSMENT AND MEDICATION DUE. THIS RN TO ROOM TO CHECK ON PT. PT TALKING TO FAMILY ON PHONE. PT STATES HER DAY IS "NOT GOOD!" REPORTS "I DON'T WANT TO BE HERE. I'M GOING HOME TODAY." PT DENIES PAIN AND NAUSEA. REPORTS SHE HAS BEEN TALKING TO HER FAMILY "ALL MORNING." TI, RN, CALLED FOR ULTRASOUND IV START PT HAS PENDING IV ABX. PT OREITNED TO ALL BUT YEAR "IT'S 2000." AND IS ABLE TO RECALL WHY SHE IS AT THE HOSPITAL. PT REPORTS STRENGTH IS "NORMAL." PT ANXIOUS AND TEARFUL STATING "I DIDN'T WANT TO BE HERE ON THANKS." PT FOLLOWS DIRECTIONS. LUNG SOUNDS CLEAR. OCCATIONAL DRY COUGH NOTED. HEART TONES REGULAR, MURMUR HEARD. MINIMAL EDEMA NOTED ON BLE. BOWEL TONES ACTIVE. ABDOMINAL DISTENTION NOTED, MODERATE GRADE. PT REPORTS OCCATIONAL "BELLY BUTTON" PAIN WHEN PLAPATION "ONLY WHEN MY ABDOMEN IS SWOLLEN LIKE THIS." MILD JAUNDICE COLORATION NOTED TO SKIN AND SCLERA. PT CONTINUES TO REPORT TO FAMILY THAT SHE "WILL NOT BE TRANSFERED" AND DOES "NOT WANT THAT PROCEEDURE WHERE THEY PUT SOMETHING DOWN MY THROAT." TI TO BEDSIDE FOR ULTRASOUND IV START, PT AGREES TO IV PLACEMENT. NO ADDITIONAL REQUESTS OR COMPLAINTS AT THIS TIME. CALL LIGHT WITHIN REACH. BED RAILS UP.
--- NOTE | 2021-10-14 09:07 | NUR ---
THIS RN TO ROOM TO CHECK ON PT. IV NOW PRESENT IN LEFT AC. FLUSHED AND SALINE LOCKED PER PROTOCOL, ALCOHOL CAP APPLIED. PT EATING BREAKFAST. NO ADDITIONAL REQUESTS OR COMPLAINTS. CALL LIGHT WITHIN REACH. BED RAILS UP.
--- NOTE | 2021-10-14 09:11 | NUR ---
PATIENT AWAKE IN BED, VITALS CHARTED. PATIENT SET UP FOR BREAKFAST. CALL LIGHT IN REACH.
--- NOTE | 2021-10-14 09:26 | NUR ---
PT CALL LIGHT ON. PT REQUESTS ASSISTANCE UP TO RESTROOM. STAND BY ASSIST UP TO RESTROOM. PT VOIDS AND HAS BOWEL MOVEMENT. PT PERFORMS SELF JOSE CARE. STAND BY ASSIST UP TO CHAIR. LINENS CHANGED. STAND BY ASSIST UP TO RESTROOM AND ADDITIONAL TIME. 2 LOOSE BOWEL MOVEMENTS NOTED. PT VOIDED 150ML CLEAR YELLOW URINE. PT REMAINS UP TO CHAIR. CALL LIGHT WITHIN REACH.
--- NOTE | 2021-10-14 10:24 | NUR ---
PT CALL LIGHT ON. PT REQUESTS ASSISTANCE UP TO RESTROOM. STAND BY ASSIST UP TO RESTROOM. PAD UNDER PT NOTED TO BE SOILED, CHANGED. FRESH BLANKETS PROVIDED. PT HAS MEDIUM LOOSE BROWN BOWEL MOVEMENT. PT PERFORMS SELF JOSE CARE. STAND BY ASSIST BACK TO CHAIR. ICE WATER REFILLED. NO ADDITIONAL REQUESTS OR COMPLAINTS. CALL LIGHT WITHIN REACH.
--- NOTE | 2021-10-14 10:45 | NUR ---
PUMP ALARMING, INFUSION AND FLUSH COMPLETE. IV ASSESSED, WNL. FLUSHED AND SALINE LOCKED PER PROTOCOL, ALCOHOL CAP APPLIED. PT REMAINS UP TO CHAIR. NO ADDITIONAL REQUESTS OR COMPLAINTS. CALL LIGHT WITHIN REACH.
--- NOTE | 2021-10-14 11:14 | NUR ---
DR BROOKS UPDATED ON PT STATUS. DR. BROOKS REQUESTS THAT THIS RN CALLED PTS CONTACT ANGLE AND UPDATE HER WELL AND REQUEST THAT ANGLE TALK WITH PT ABOUT HER WILLINGNESS FOR TRANSFER AND OUMAR SCAN OR WEATHER SHE WILL CONTINUES TO DECLINE THIS SCAN. PT STATES IT IS OK TO UPDATE ANGLE. MILAGRO VERBALIZES UNDERSTANDING AND STATES SHE WOULD LIKE TO TALK WITH THE PT. CALL TRANSFERED INTO PTS ROOM. PT TALKING WITH MILAGRO, REMAINS UP TO CHAIR. NO ADDITIONAL REQUESTS OR COMPLAINTS. PT REPORTS SHE DOES NOT WANT TO PLACE A LUNCH ORDER BECAUSE "I JUST WANT TO GO HOME INSTEAD." CALL LIGHT WITHIN REACH. BED RAILS UP.
--- NOTE | 2021-10-14 11:21 | NUR ---
PTS SISTER, TIANA, CALLED AND UPDATED ON PTS STAUTS AND PLAN OF CARE. TIANA VERBALIZES UNDERSTANDING AND STATES SHE WOULD LIKE PT TO BE TRANSFERED PER MD RECCOMENDATIONS. TIANA ENCORAUGED TO TALK WITH PT ABOUT HER WISHES. FAITH VERBALIZES UNDERSTANDING AND STATES HER QUESTIONS HAVE BEEN ANSWERED.
--- NOTE | 2021-10-14 11:42 | NUR ---
ASSESSMENT AND MEDICATIONS DUE. THIS RN TO ROOM. PT REMAINS UP TO CHAIR TALKING WITH FAMILY. PT ENDS PHONE CALL TO TALK WITH THIS RN. PT REPORTS SHE IS WILLING TO TRANSFER TO A LARGER FACILITY FOR ADDITIONAL TESTING, MD UPDATED. IV ASSESSED, WNL, NO S/S/ OF PHLEBITIS NOTED, IV ABX STARTED. PT REMAINS ALERT AND ORIENTED TO ALL BUT YEAR. LUNG SOUNDS REMAIN CLEAR. OCCATIONAL DRY COUGH CONTINUES. HEART MURMUR HEARD. ABDOMINAL DISTENTION REMAINS, UNCHANGED. PT CONTINUES TO REPORT OCCATIONAL TENDERNESS TO ABDOMEN. BOWEL TONES REMAIN ACTIVE. PTS FAMILY ARRIVED TO BEDSIDE. MD TO BEDSIDE TO TALK WITH PT ABOUT PLAN OF CARE. PT TEARFUL WITH PLAN OF CARE AND POSSIBLE TRANSFER. PT VERBALIZES UNDERSTANDING OF PLAN OF CARE AND STATES HER QUESTIONS HAVE BEEN ANSWERED. PT VISITING WITH DOMENICO CARVAJAL SIGNIFICANT OTHER WHILE UP TO CHAIR. NO ADDITIONAL REQUESTS OR COMPLAINTS. CALL LIGHT WITHIN REACH.
--- NOTE | 2021-10-14 12:32 | NUR ---
MEDICATIONS DUE. THIS RN TO ROOM. PT UP TO CHAIR VISITING WITH SIGNIFICANT OTHER. PT REMAINS ORIENTED AND HAVING COHERANT CONVERSATIONS. MEDICATIONS GIVEN (SEE MAR). PT DENIES ADDITIONAL REQUESTS OR COMPLAINTS. CALL CONCEPCION RAIN.
--- NOTE | 2021-10-14 12:48 | NUR ---
PATIENT AWAKE IN CHAIR, BF IN ROOM. VITALS CHARTED.
--- NOTE | 2021-10-14 13:00 | NUR ---
PT CALL LIGHT ON. PT REQUESTS ASSISTANCE UP TO RESTROOM. STAND BY ASSIST UP TO RESTROOM. PT VOIDS 125ML AND HAS A LARGE LOOSE BOWEL MOVEMENT. PT PERFORMES SELF JOSE CARE. STAND BY ASSIST BACK TO CHAIR. SMALL BLEEDING AREA ON LEFT THUMBNAIL. PT REPORTS SHE "PULLED A HANG NAIL OUT." BLEED STOPS EASILY WITH APPICLATION OF PRESSURE. BANDAID APPLIED. PT DENIES ADDITIONAL REQUESTS OR COMPLAINTS. CALL LIGHT WITHIN REACH. SIGNIFICANT OTHER AT BEDSIDE.
--- NOTE | 2021-10-14 13:31 | NUR ---
[facility] CALLED AND HAS ACCEPTED PT TRANSFER. DR. BROOKS TO BEDSIDE TO UPDATE PT. PT CHEERFUL AND REPORTS SHE IS "READY TO GO." NERY BAIG, CALLED AND ASKED IF IV ABX INFUSION RATE CAN BE INCREASED. NERY STATES INFUSION CAN BE GIVEN OVER 30 MINUTES FOR THE WHOLE BAG. RATE INCREASED TO 150ML/HR SO REMAINDER OF INFUSIN WILL INFUSE OVER 22MINUTES. PT VERBALIZES UNDERSTANDING OF PLAN OF CARE AND TRANSFER. REPORT CALLED TO ANDREI FLEMING, AT [facility] WHO VERBALIZES UNDERSTANDING AND STATES HIS QUESTIONS HAVE BEEN ANSWERED. PT REMAINS UP TO CHAIR. NO ADDITIONAL REQUESTS OR COMPLAINTS. CALL LIGHT AUGUST RAIN.
--- NOTE | 2021-10-14 14:27 | NUR ---
SBA TO BR. S/O IN ROOM.
--- NOTE | 2021-10-14 14:34 | NUR ---
CONTINUE TO AWAIT ARRIVAL OF TRANSFER PERSONEL. PT REQUESTS TO SHOWER PRIOR TO TRANSFER. PT UP WITH STAND BY ASSIST TO SHOWER. IV INFUSION COMPLETE. IV SALINE LOCKED, ALCOHOL CAP APPLIED. CHAPLAIN ASSISTING PT WITH SHOWER. PT AMBULATES TO ROOM 126 WITH STAND BY ASSIST, STEADY ON FEET.
--- NOTE | 2021-10-14 14:38 | NUR ---
THIS RN NOTED NEW ORDER FOR RIFAXIMIN. PT SCHEDULED FOR TRANSFER. CALLED AND DR. BROOKS STATES TO GIVE FIRST DOES PRIOR TO TRANSFER. PHAMACISTNERY, UPDATED, MEDICATION RETIMED TO GIVE NOW.
--- NOTE | 2021-10-14 14:45 | NUR ---
SBA, PATIENT INTO SHOWER. PATIENT ABLE TO SHOWER WITHOUT ASSISTANCE. BACK TO CHAIR, S/O IN ROOM WELL. CALL LIGHT AND PERSONAL ITEMS IN EASY REACH
--- NOTE | 2021-10-14 15:00 | NUR ---
PT FINISHED WITH SHOWER. STAND BY ASSIST BACK TO ROOM AND UP TO RESTROOM TO DO ORAL CARE AND COMBE HAIR. STAND BY ASSIST UP TO CHAIR. ABX GIVEN. PT DENIES ADDITIONAL REQUESTS OR COMPLAINTS. WAITING FOR ARRIVAL OF TRANSPORT PERSONE[facility]. CALL LIGHT WITHIN REACH. FAMILY AT BEDSIDE.
--- NOTE | 2021-10-14 16:23 | NUR ---
AFTERNOON ASSESSMENT DUE. PT REMAINS UP TO CHAIR, VISITING WITH SIGNIFICANT OTHER, WAITING FOR TRANSPORT TEAM. PT DENIES PAIN AND NAUSEA. IV REMAINS SALINE LOCKED, WNL, NO S/S OF PHLEBITIS NOTED. PT ORIENTED TO ALL BUT YEAR REPORTING IT IS "2000." PT UP TO RESTROOM WITH STAND BY ASSIST, REPORTS NORMAL STRENGTH. PT CARRIES ON CONVERSATION AND RESPONDS NORMALLY. LUNG SOUNDS CLEAR. HEART MURMUR CONTINUES, UNCHANGED. +1 EDMA CONTINUES TO BLE, UNCHANGED. MODERATE ASCITIES CONTINUES, PT DENIES TENDERNESS TO ABDOMEN. JVD NOTED WITH PRESSURE PLACE ON ABDOMEN WHILE PT IS IN A SEMIRECUMBANT POSITION. PT TELLING STORIES AND LAUGHING WITH SIGNIFICANT OTHER. SNACK BOX ORDERED FOR PT TO EAT OR TAKE WITH HER. PT DENEIS ADDTIIONAL REQUESTS OR COMPLAINTS, CALL LIGHT WITHIN REACH. PT REAMINS UP TO CHAIR.
--- NOTE | 2021-10-14 17:00 | NUR ---
MEDICATIONS DUE. PT REMAINS UP TO CHAIR, TALKING TO FAMILY ON PHONE. LACTULOSE HELD TRANSFER IS EXPECTED SOON AND PT ANTICIPATES DIFFICULTY WITH NEEDING TO VOID/HAVE MULTPLE BM'S AFTER LATULOSE ADMINISTRATION AND THIS WOULD BE DIFFICULT TO ACCOMIDATE DURING TRANSFER. OTHER MEDICATION GIVEN. PT CONTINUES TALKING ON PHONE. NO ADDITIONAL REQUESTS OR COMPLAINTS AT THIS TIME. CALL LIGHT WITHIN REACH.
--- NOTE | 2021-10-14 17:20 | NUR ---
TRANSPORT [facility] ARRIVED TO TRANSFER PT TO [facility]. PT TRANSFERSE SELF TO STRETCHER, NO ASSISTANCE NEEDED. REPORT GIVEN TO JAVIER RAISE DRILL OPERATOR. BELONGINGS SENT WITH PT AND PTS . NO ADDITIONAL REQUESTS OR CONCERNS.
--- NOTE | 2021-10-14 17:26 | NUR ---
UPDATE CALLED TO ANDREI FLEMING AT [facility], WHO IS ASSUMING CARE OF PT. LONNIE SPECIFICALLY UPDATED THAT PT DID NOT RECEIVE EVENING LACTULOSE AND WILL NEED DOSE UPON ARRIVAL. LONNIE VERBALIZES UNDERSTANDING AND STATES HIS QUESTIONS WERE ANSWERED.
== END 2021-10-14 17:20 | disposition short-term general hospital (02) ==
LOC: ED 09:29 → CCU 09:31
PROVIDERS: ADMIT Internal Medicine; ATTEND Internal Medicine
DX: G93.41 Metabolic encephalopathy (principal); K72.10 Chronic hepatic failure without coma; N30.90 Cystitis, unspecified without hematuria; E11.22 Type 2 diabetes mellitus with diabetic chronic kidney disease; I12.9 Hypertensive chronic kidney disease with stage 1 through stage 4 chronic kidney disease, or unspecified chronic kidney disease; N18.4 Chronic kidney disease, stage 4 (severe); K74.60 Unspecified cirrhosis of liver; B19.20 Unspecified viral hepatitis C without hepatic coma; K76.6 Portal hypertension; E87.2 Acidosis; U07.1 COVID-19; K21.9 Gastro-esophageal reflux disease without esophagitis; Z79.4 Long term (current) use of insulin
CPT/HCPCS: 71045; 80048; 80053; 81001; 82140; 82803; 83615; 83690; 83735; 84157; 85025; 85610; 85651; 85730; 87070; 87075; 87088; 87205; 89051; 93005; 93010; 93308; C9803; G0480; J0692; J1650; J1815; J2405; J3475; J7030; U0003

== ENCOUNTER 2021-10-31 10:22 | Inpatient (IN) | payer MEDICARE, OTHER ==
[~2021-10-31] VITALS: Ht 160 cm; Wt 76.7 kg
--- OUTSIDE RECORDS SUMMARY | 2021-10-31 10:24 | XMS ---
PreManage Notification: LAURIE VELARDE Security Chief Fundraising Officer Events No recent Security Events currently on file CRITERIA MET - [facility] - 3 Facilities in 90 Days - ED - Positive COVID-19 Lab Result - OHA - PDMP - [facility] 2 Visits in 30 Days - 6 ED Visits in 6 Months CARE PROVIDERS Kyra Irene Transcript Clerk/Non Destructive Evaluation Manager 08/20/2021-Current PHONE: [phone] FELIX LOU[facility] Family [facility] 10/17/2016-Current PHONE: Unknown LINDA COFFEY Family [facility] 08/30/2021-Current PHONE: [phone] Luciano has no Care Guidelines for this patient. Edenilson VISIT COUNT (12 MO.) 1 Nolan Patricio 4 [facility] 11 OCTAVIA Garcia TOTAL 16 NOTE: Visits indicate total known visits. ED/UCC VISIT TRACKING (12 MO.) 10/31/2021 10:22 [facility] [place] TYPE: Emergency COMPLAINT: - ALTERED LOC 10/12/2021 09:30 [facility] [place] TYPE: Emergency COMPLAINT: - UNCONCIOUS,LIVER FAILURE 10/08/2021 11:04 [facility] [place] [place] TYPE: Emergency COMPLAINT: - ALTERED LOC 10/02/2021 07:[address] [facility] [place] TYPE: Emergency COMPLAINT: - ALTERED 09/03/2021 11:[address] [facility] [place] TYPE: Emergency COMPLAINT: - ALTERED MENTAL STATUS 08/26/2021 11:48 [facility] [place] TYPE: Emergency COMPLAINT: - ALOC 08/24/2021 10:43 [facility] TYPE: Emergency COMPLAINT: - Abdominal mass / distenstion_PARACENTESIS - UNSPECIFIED ABDOMINAL PAIN - SHORTNESS OF BREATH - OTHER ASCITES DIAGNOSES: 0. Unspecified abdominal pain 1. Other ascites 5. Unspecified cirrhosis of liver 6. Unspecified viral hepatitis C without hepatic coma 7. salvage determiner (current) use of insulin 08/17/2021 15:06 [facility] TYPE: Emergency COMPLAINT: - LOWER BACK/ABD PAIN DIAGNOSES: - Unspecified abdominal pain - Type 2 diabetes mellitus without complications - Gastro-esophageal reflux disease without esophagitis - Somnolence - salvage determiner (current) use of insulin - Other half-way (current) drug therapy - Hypokalemia 08/14/2021 10:32 [facility] TYPE: Emergency DIAGNOSES: - Abdominal Pain - Other ascites - Liver disease, unspecified - needs fluid drained from stomach 08/13/2021 17:[facility] DIAGNOSES: - periantesis - Other ascites - Abdominal Distension 08/06/2021 11:14 [facility] Emergency DIAGNOSES: - Abdominal Distension; SOB - Other ascites - Medical Problem (Minor) - Hepatic failure, unspecified without coma 07/31/2021 13:13 OCT[facility] TYPE: Emergency COMPLAINT: - WEAKNESS 2021 09:07 [facility] [place] TYPE: Emergency COMPLAINT: - ALTERED LOC 06/11/2021 09:20 [facility] [place] TYPE: Emergency COMPLAINT: - ALTERED MENTAL STATUS, NO EATING/DRINK, FATIGUE 05/10/2021 15:22 [facility] Luz R[facility]DS[facility] TYPE: Emergency DIAGNOSES: - Other ascites - fluid drained from stomach - Abdominal Pain 05/03/2021 17:50 [facility] [place] TYPE: Emergency COMPLAINT: - DOG BITE DIAGNOSES: - Other half-way (current) drug therapy - Type 2 diabetes mellitus without complications - Open bite, left lower leg, initial encounter - salvage determiner (current) use of opiate analgesic - Plantar fascial fibromatosis - [facility] (current) use of insulin - Gout, unspecified - Open bite, left lower leg, initial encounter - Bitten by dog, initial encounter INPATIENT VISIT TRACKING (12 MO.) 10/14/2021 18:57 [facility] TYPE: Internal Medicine DIAGNOSES: - Acidosis - Unspecified cirrhosis of liver - r/o endocarditis - Hypokalemia - Chronic kidney disease, stage 4 (severe) - Edema, unspecified - Hypomagnesemia - Encephalopathy - Essential (primary) hypertension - Anemia in chronic kidney disease - Thrombocytopenia, unspecified - Hepatic failure, unspecified without coma - Anemia, unspecified - Other ascites 10/12/2021 09:31 [facility] [place] TYPE: Observation COMPLAINT: - ENCEPHALOPATHY DIAGNOSES: - Type 2 diabetes mellitus with diabetic chronic kidney disease - Metabolic encephalopathy - Gastro-esophageal reflux disease without esophagitis - Chronic hepatic failure without coma - Cystitis, unspecified without hematuria - COVID-19 - Portal hypertension - Unspecified viral hepatitis C without hepatic coma - salvage determiner (current) use of insulin - Acidosis - Chronic kidney disease, stage 4 (severe) - Hypertensive chronic kidney disease with stage 1 through stage 4 chronic kidney disease, or unspecified chronic kidney disease - Unspecified cirrhosis of liver 10/08/2021 11:05 [facility] TYPE: Observation COMPLAINT: - HEPATIC ENCEPHALOPATHY DIAGNOSES: - Chronic kidney disease, stage 4 (severe) - Hepatic failure, unspecified without coma - salvage determiner (current) use of insulin - Portal hypertension [...] - Other ascites - Portal hypertension - [facility]CF (current) use of insulin - Type 2 diabetes mellitus with diabetic chronic kidney disease - Type 2 diabetes mellitus with diabetic chronic kidney disease - Chronic viral hepatitis C - Other marine oil terminal superintendent (current) drug therapy - Thrombocytopenia, unspecified - Thrombocytopenia, unspecified - Hypersplenism - Unspecified cirrhosis of liver - Acute kidney failure, unspecified - Hypersplenism - Anemia, unspecified - Hyperkalemia - Chronic kidney disease, stage 4 (severe) - Anemia, unspecified - Gastro-esophageal reflux disease without esophagitis 09/23/2021 13:12 [facility] [place] TYPE: Observation COMPLAINT: - HEPATIC ENCEPH DIAGNOSES: - Hepatic failure, unspecified without coma - CHCF (current) use of insulin - Acute and [...] - Gastro-esophageal reflux disease without esophagitis - salvage determiner (current) use of insulin - Type 2 diabetes mellitus with diabetic chronic kidney disease - Dehydration - Dehydration - Portal hypertension - Anemia in other chronic diseases classified elsewhere - CHCF (current) use of insulin - Hypersplenism - Postprocedural hepatic failure - Hypersplenism - Gastro-esophageal reflux disease without esophagitis - Unspecified viral hepatitis C without hepatic coma - Unspecified cirrhosis of liver - Unspecified viral hepatitis C without hepatic coma - Unspecified cirrhosis of liver - Other pancytopenia - Other marine oil terminal superintendent (current) drug therapy - Anemia in other chronic diseases classified elsewhere - Anemia in chronic kidney disease - Other pancytopenia - Chronic kidney disease, stage 4 (severe) - Portal hypertension - Other half-way (current) drug therapy 08/26/2021 13:56 [facility] [place] TYPE: Medical Surgical COMPLAINT: - HEPATIC ENCEPHALOPATHY DIAGNOSES: - Unspecified cirrhosis of liver - Personal history of other infectious and parasitic diseases - Hypertensive chronic kidney disease with stage 1 through stage 4 chronic kidney disease, or unspecified chronic kidney disease - Portal hypertension - Other pancytopenia - Other half-way (current) drug therapy - Dehydration - Other specified postprocedural states - Acute and subacute hepatic failure without coma - Gastro-esophageal reflux disease without esophagitis - Hypertensive chronic kidney disease with stage 1 through stage 4 chronic kidney disease, or unspecified chronic kidney disease - CHCF (current) use of insulin - Hypersplenism - Acidosis - Type 2 diabetes mellitus with diabetic chronic kidney disease - Gastro-esophageal reflux disease without esophagitis - Dehydration - Other marine oil terminal superintendent (current) drug therapy - Chronic kidney disease, stage 4 (severe) - COVID-19 - Unspecified cirrhosis of liver - Portal hypertension - Hypersplenism - Chronic kidney disease, stage 4 (severe) - Type 2 diabetes mellitus with diabetic chronic kidney disease - Other specified postprocedural states - salvage determiner (current) use of insulin - COVID-19 - Acidosis - Secondary esophageal varices without bleeding - Personal history of other infectious and parasitic diseases 07/31/2021 17:24 [facility] [place] TYPE: Observation COMPLAINT: - HEPATIC ENCEPHALOPATHY DIAGNOSES: - COVID-19 - Urinary tract infection, site not specified - Unspecified viral hepatitis C without hepatic coma - Metabolic encephalopathy - CHCF (current) use of insulin - Type 2 diabetes mellitus with diabetic chronic kidney disease - Hepatic failure, unspecified without coma - Chronic kidney disease, stage 4 (severe) 2021 13:07 [facility] [place] TYPE: Medical Surgical COMPLAINT: - HEPATIC ENCEPHALOPATHY DIAGNOSES: - CHCF (current) use of insulin - Portal hypertension - Chronic kidney disease, stage 4 (severe) - Other half-way (current) drug therapy - Acute and subacute hepatic failure without coma - Type 2 diabetes mellitus with diabetic chronic kidney disease - Unspecified cirrhosis of liver - Unspecified viral hepatitis C without hepatic coma - Gastro-esophageal reflux disease without esophagitis 06/11/2021 16:23 [facility] [place] TYPE: Medical Surgical COMPLAINT: - ENCEPHALOPATHY DIAGNOSES: - salvage determiner (current) use of insulin - Chronic kidney [...] - Other specified postprocedural states - Other half-way (current) drug therapy - Metabolic encephalopathy - salvage determiner (current) use of systemic steroids - Aphasia - salvage determiner (current) use of systemic steroids - CHCF (current) use of insulin - Other marine oil terminal superintendent (current) drug therapy [email or web address]
--- NOTE | 2021-10-31 13:30 | NUR ---
PT ARRIVED IN CCU AT 1255. PT NOT RESPONSIVE. BP'S ELEVATED, OTHER V/S WDL. ABDOMEN HAS ASCITES PRESENT, ABD IS FIRM TO TOUCH AND ABD SOUNDS ARE NOT REALLY AUDIBLE. PT HAS BILATERAL PITTING +3 LEG EDEMA. HEART MURMUR HEARD, PUPILS REACTIVE AND WDL. LOBES CLEAR FAR I COULD HEAR. RADIAL AND PEDIS PULSES +2 TO +3.
--- NOTE | 2021-10-31 14:24 | NUR ---
PATIENT'S ATTENDS CHANGED AFTER GIVING LACTULOSE ENEMA. PT HAD A LARGE LIQUID BM WITH SOME EVIDENCE OF UNDIGESTED FOOD MATTER IN THE STOOL. PT STILL LETHARGIC, WITHDRAWS FROM PAINFUL STIMULI, BUT OTHERWISE IS OBTUNDED. PT REMAINS ON ROOM AIR WITH SP02 OF 100% AT THIS TIME. CONTINUE TO MONITOR.
--- NOTE | 2021-10-31 14:35 | NUR ---
PT NEEDS INTERMITTEN SUCTIONING OF MOUTH. PT TURNED TO SIDE, URINE OUTPUT WDL SO FAR. WILL CONTINUE TO MONITOR.
--- NOTE | 2021-10-31 15:19 | NUR ---
PT HAD ANOTHER BM OF MEDIUM SEIZE/ LIQUID. PT WAS CLEAND UP AND BRIEF WAS CHANGED. PT STILL NOT RESPONSIVE.
--- NOTE | 2021-10-31 16:26 | NUR ---
Medications reconciled
--- NOTE | 2021-10-31 17:10 | NUR ---
NOTHING HAS CHANGED IN PT STATUS. PT STILL OBTUNDED. LOBES CLEAR, PERIPH. BILETERAL LEG EDEMA +3, PEDIS PULSES +2/ +3. ABD HAS ASCITES PRESENT AND IS UNCHAGNED FAR DISTENTION IS CONCERNED. BP'S STILL A BIT ELEVATED BUT BETTER. NO NEW CONCERNS NOTED AT THIS TIME.L
--- NOTE | 2021-10-31 18:30 | NUR ---
PT HAS HAD ANOTHER BM. PT STILL HAS UNCHANGED ALOC. V/S WDL OVERALL. PT HAS BEEN TURNED >Q2HRS SINCE ARRIVAL TO CCU. PT STILL NEEDS ORAL SUCTIONING SINCE SHE DOES NOT SEEM TO BE ABLE TO HAVE A SWALLOW REFLEX AT THIS TIME. HOB ELEVATED.
--- NOTE | 2021-10-31 23:52 | NUR ---
PT HAS HAD 3 LARGE TO EXTRA LARGE STOOLS. PARTIAL BED BATH AND LINEN CHANGES COMPLETED WITH EACH BM. PT IS NOW OPENS EYES TO COMMANDS, UNABLE TO FOLLOW ANY OTHER COMMANDS. REPOSITIONING COMPLETED EVERY 2 HOURS. WILL CONTINIUE TO MONITOR.
--- NOTE | 2021-11-01 03:10 | NUR ---
PT BPs REMAIN ELEVATED AT 190s/70s 1 HR POST 5MG METOPROLOL PUSH. DR. BROOKS NOTIFIED AND ORDER OBTAINED FOR PRN HYDRALAZINE.
--- NOTE | 2021-11-01 04:06 | NUR ---
BP LOWERED TO 141/86 1 HOUR POST 10 MG HYDRALAZINE. PT OPENS EYES EASILY WHEN SPOKEN TO. UNABLE TO STATE NAME OR FOLLOW OTHER COMMANDS. WILL CONTNIUE TO MONITOR.
--- NOTE | 2021-11-01 08:06 | NUR ---
PATIENT RESTING IN BED AT THIS TIME WITH EYES OPEN. PT STILL NOT COMMUNICATING VERBALLY, BUT DOES GROAN WHEN GIVEN SUB Q INSULIN. BICARB GTT REMAINS INFUSING AT 125 ML/HR. NEXT DOSE OF LACTULOSE TO BE GIVEN. LAST BP 164/87. CONTINUE TO MONITOR CLOSELY.
--- NOTE | 2021-11-01 09:22 | NUR ---
PATIENT GIVEN LACTULOSE ENEMA AT 0915. PT TOLERATED WELL AND IS STARTING TO BECOME VERBAL WITH SOME WORDS, BUT STILL NOT INTERACTING WITH STAFF. PT TURNED ON RIGHT SIDE AND RESTING NOW. WILL CHANGE PATIENT IN 15-20 MINUTES.
--- NOTE | 2021-11-01 10:12 | NUR ---
THIS HYDRAULIC RIVETER IN WITH RN. PATIENT INCONTINENT OF EXTRA LRG STOOL. LINEN CHANGED, PARTIAL BEDBATH. REPOSTIONED ONTO LEFT SIDE. NASSAR EMPTIED. CALL LIGHT IN REACH
--- NOTE | 2021-11-01 11:19 | NUR ---
DR. BROOKS IN ROOM TO SEE PATIENT. DISCUSSING PLAN OF CARE WITH MD. WILL TRY AND ARRANGE FOR PATIENT TO HAVE HER PARACENTESIS TODAY OR TOMORROW. PT HAS ONE SCHEDULED FOR THIS MONDAY. PATIENT REMAINS NONVERBAL. SP02 IS 99% ON ROOM AIR.
--- NOTE | 2021-11-01 12:16 | NUR ---
2PA, PATIENT INCONTINENT OF STOOL. CLEAN BRIEF AND CACHORRO PROVIDED. PATIENT REPOSITIONED ONTO RIGHT SIDE.
--- NOTE | 2021-11-01 12:48 | NUR ---
DR. SHIELDS IN TO SEE PATIENT BRIEFLY. PATIENT WILL LIKELY HAVE PARACENTESIS TODAY.
--- NOTE | 2021-11-01 13:29 | NUR ---
PATIENT STILL MOSTLY NONVERBAL. PT IS WILLING TO TAKE DRINKS OF WATER, AND HER 1300 DOSE OF LACTULOSE MIXED WITH SOME DIET 7UP AND SHE WAS ABLE TO DRINK THIS. ATTENDS CHECKED AND STILL DRY AT THIS TIME. [facility] ONTINUE TO MONITOR.
--- NOTE | 2021-11-01 14:23 | NUR ---
PT MOSTLY NON-VERBAL. EYES OPEN PT KNEW WHEN I ENTERED HER RM. SHOOK HEAD THAT SHE WIULD LIKE TO HAVE HER CHILD CARE SUPERVISOR NOTIFIED-WHICH I DID. PT NODDED SHE WOULD LIKE ME TO PRAY WITH HER, WHICH I DID.
--- NOTE | 2021-11-01 15:43 | NUR ---
DR. SHIELDS IN TO SEE PATIENT AGAIN AND PARACENTESIS PERFORMED AT 1515. PT TOLERATED WELL. PT STILL REMAINS NONVERBAL, BUT DOES NOD HEAD YES/NO APPROPRIATELY TO QUESTIONS. PT RECEIVING IV ALBUMIN PER DR. SHIELDS. 850 ML OF CLEAR YELLOW PERITONEAL FLUID WAS COLLECTED. SAMPLE SENT TO LAB FOR DIAGNOSTIC TESTS. PT GIVEN A DRINK OF WATER AND DRINKS WELL. IVF CONTINUE AT 75 ML/HR.
--- NOTE | 2021-11-01 20:01 | EKG ---
[facility] [address] [facility] [place], [place] [address] Signed Normal sinus rhythm Normal ECG When compared with ECG of 12-OCT-2021 09:52, No significant change was found Confirmed by MELECIO BROOKS DO ([id number]) on 11/01/2021 8:01:23 PM Electronically Signed By: MELECIO BROOKS DO 11/01/212000 PATIENT NAME: LAURIE VELARDE Electrocardiogram DATE OF : 65 PHYSICIAN: MELECIO BROOKS DO REPORT #: [id number] REPORT IS CONFIDENTIAL AND NOT TO BE RELEASED WITHOUT AUTHORIZATION
--- NOTE | 2021-11-01 22:04 | NUR ---
BP ELEVATED AT 190/90 AT 2100. 10 MG IV HYDRALAZINE ADMINISTERED, 2200 BP NOW 157/83.
--- NOTE | 2021-11-01 22:50 | NUR ---
PT IS AWAKE AND MILDLY RESTLESS. STILL NONVERBAL. NO LONGER MOANS WITH MOVEMENT OR TENSION IN FACIAL EXPRESSIONS. HR 100-120. WILL CONTINUE TO MONITOR.
--- NOTE | 2021-11-02 05:29 | NUR ---
PT REQUESTED TO GET UP TO BATHROOM. SHE IS DISORIENTED X4 BUT FOLLOWS COMMANDS. UNSTEADY ON FEET BUT ABLE TO GET TO BSC. PARTIAL BED BATH COMPLETED, GOWN CHANGED.
--- NOTE | 2021-11-02 07:40 | NUR ---
PATIENT AWAKE IN BED, PATIENT MORE VERBAL THAN YESTERDAY, RESPONDING "YES OR NO" WHEN SPOKEN TO. CAN ALSO FOLOW SIMPLE CUES/COMANDS. VITALS CHARTED, CALL LIGHT IN REACH
--- NOTE | 2021-11-02 07:50 | NUR ---
IN PATIENT'S ROOM FOR ASSESSMENT. PATIENT IS AWAKE, ALERT, AND RESPONSIVE. PT STATES HER NAME AND LOCATION CORRECTLY. PT UNABLE TO STATE THE MONTH OR HER , BUT NODS YES WHEN ASKED IF SHE KNOWS WHY SHE IS IN HOSPITAL. PT SEEMS TO BE UDNERSTANDING. PT IS CALM, COOPERATIVE. LUNG SOUNDS CLEAR. PT DENIES PAIN. ABD IS SOFT, DISTENDED STILL, BUT NOT TAUT YESTERDAY OR PRIOR DAY. PT HAD A PARACENTESIS YESTERDAY WITH 850 ML CLEAR YELLOW FLUID REMOVED. NASSAR DRAINING CONCENTRATED LOOKING URINE. PLAN OF CARE DISCUSSED. CLEAR LIQUID TRAY ORDERED FOR PATIENT. CONTINUE TO MONITOR.
--- NOTE | 2021-11-02 10:01 | NUR ---
INTO ROOM TO VISIT, PATIENT SITTING UP IN CHAIR. PER STAFF PATIENTS MENTATION IS BETTER TODAY, BUT HAS NOT RETURNED TO NORMAL. PATIENT STATES SHE PLANS TO DISCHARGE HOME TO HER APARTMENT. PATIENT SISTER TIANA OCONNELL LIVES IN THE SAME COMPLES AND IS WILL TO HELP PATIENT. PATIENT STATES TIANA SHOULD BE BRINGING HER SOME CLOTHES TODAY. PATIENT CONFIRMS SHE HAS A CANE AND WALKER AT HOME. DEMOGRAPHIC INFORMATION CONFIRMED. PATIENTS MENTATION APPEARS TO BE BETTER TODAY, BUT PATIENT IS NOTED TO BE SLOW TO ANSWER THOUGH ANSWERS APPROPRIATLY. WILL CONTINUE TO SEE PATIENT DURING HER VISIT.
--- NOTE | 2021-11-02 10:24 | NUR ---
PATIENT TO BE TRANSFERRED TO MED/SURG. PATIENT MORE AND MORE RESPONSIVE, ASKING FOR APPROPRIATE THINGS, USING THE CALL LIGHT. PT SALINE LOCKED, AND TAKEN OFF MOLDER BENCH. PATIENT TO GO OVER TO HAVE A SHOWER IN ROOM 118 WITH EMERGENCY OPERATOR. PATIENT ON THE PHONE WITH HER SISTER AND ASKING FOR A COUPLE THINGS FROM HOME, INCLUDING HER PHONE, HER BRACE, AND HER GLASSES.
--- NOTE | 2021-11-02 10:36 | NUR ---
PATIENT NOW WITH MARKETING DATABASE ANALYST AND GETTING SHOWER.
--- NOTE | 2021-11-02 11:16 | NUR ---
THIS ECONOMICS FACULTY MEMBER ASSISTED PATIENT INTO SHOWER AND BACK TO ROOM. PATIENT NOW IN CHAIR. LUNCH ORDERED AND CALL LIGHT IN EASY REACH
--- NOTE | 2021-11-02 12:46 | NUR ---
PT SITTING UP IN CHAIR, I AM RESPONDING TO CALL FROM ANDREI SALMERON THAT PT HAD REQUESTED A VISIT.PT MUCH MORE AWARE AND RESPONSIVE TODAY, THANKED ME FOR VISIT. PT REQUESTED I UPDATE HER BOX TOE MAKER, WHICH I DID. HAD PRAYER WITH PT, GAVE BLESSING AND ENCOURAGEMENT. WILL CONTINUE TO FOLLOW
--- NOTE | 2021-11-02 13:19 | NUR ---
PATIENT CALLED, REQUESTING HELP UP TO THE RESTROOM. PATIENT WALKED TO BATHROOM WITH STANDBY ASSIST, PT TOLERATED WELL. SMALL AMOUNT OF LIQUID BM MIX WITH URINE NOTED. PATIENT ASSISTED BACK TO BED PER HER REQUEST. NO FURTHER NEEDS AT THIS TIME, CALL LIGHT IN REACH OF PATIENT.
--- NOTE | 2021-11-02 13:42 | NUR ---
PATIENT UP IN ROOM WITH HER SISTER TIANA'S ASSISTANCE. PATIENT AMBULATED TO BATHROOM. LIQUID BM MIXED WITH URINE NOTED. HAT PLACED IN TOLIET. PATIENT AMBULATED BACK TO BED. PATIENT SISTER REMAINS AT BEDSIDE.
--- NOTE | 2021-11-02 14:11 | NUR ---
GUIDED PT'S SISTER TIANA, BACK TO . PT SEEMED PLEASED TO SEE HER. GAVE BLESSING, WILL FOLLOW
--- NOTE | 2021-11-02 17:20 | NUR ---
REPORT GIVEN TO ANDREI MEJIA WHO WILL RESUME CARE OF PATIET ON MED/SURG. PT TO BE TRANSFERRED IN BED OVER.
--- NOTE | 2021-11-02 17:50 | NUR ---
PT ARRIVED TO FLOOR AT THIS TIME VIA BED. PT STATES THAT SHE IS DOING WELL WITH PAIN CONTROLLED, NO SHORTNESS OF BREATH AND REPORTS THAT SHE FEELS MORE LIKE HERSELF.
--- NOTE | 2021-11-02 19:38 | NUR ---
REPORT RECEIVED FROM ANDREI MEJIA. pt RESTING IN BED AWAKE, ON PHONE. ICE WATER PROVIDED. CALL LIGHT IN REACH.
--- NOTE | 2021-11-02 20:30 | NUR ---
SBA PATIENT WENT TO THE BATHROOM AND BACK TO BED. PATIENT VOIDED 75ML AND HAD WATERY STOOL. NO FURTHER NEEDS AT THIS TIME.
--- NOTE | 2021-11-02 21:27 | NUR ---
PT AWAKE RESTING IN BED. ASSESSMENT COMPLETE. DENIES PAIN AND NAUSEA. ALERT AND ORIENTED. VSS. REQUESTING PROTEIN PACK, CBG 105. SENIOR ARCHITECT RN NOTIFIED. IV SITE FLUSHED WNL. CALL LIGHT IN REACH.
--- NOTE | 2021-11-02 22:28 | NUR ---
CALL LIGHT ANSWERED. PROTEIN PACK IN FRIDGE PER REQUEST. TEA HEATED. ASSISTED pt WITH REPOSITIONING IN BED. CALL LIGHT IN REACH.
--- NOTE | 2021-11-03 00:47 | NUR ---
ROUNDED ON pt. RESTING IN BED AWAKE. ICE WATER REFILLED. SBA TO RESTROOM FOR VOID AND BM. PLAYROOM ATTENDANT SINTA IN ROOM TO ASSIST pt BACK TO BED.
--- NOTE | 2021-11-03 00:50 | NUR ---
CALL LIGHT ANSWERED. PATIENT IS BACK IN BED FROM BATHROOM. EMPTIED HAT AND PATIENT HAD A YELLOW WATERY STOOL. NO OTHER NEEDS AT THIS TIME.
--- NOTE | 2021-11-03 03:50 | NUR ---
CHECKED ON pt. RESTING IN BED AWAKE. STATES HAS NOT SLEPT YET. SLEEPY TIME TEA PROVIDED REQUESTED. CALL LIGHT IN REACH.
--- NOTE | 2021-11-03 06:38 | NUR ---
pt SLEEPING, AWAKENS TO VOICE. VSS. ASSESSMENT COMPLETE. BOWEL TONES ACTIVE, ABD SOFT, DISTENDED, NON-TENDER WITH PALPATION. 1PA TO RESTROOM FOR VOID AND LOOSE BM. pt BACK IN BED, ICE WATER, CALL LIGHT AND PERSONAL SUPPLIES IN REACH.
--- NOTE | 2021-11-03 07:30 | NUR ---
Shift report received from ANDREI Jane, pt resting safely in bed w/ call light in reach. Pt denies any needs at this time
--- NOTE | 2021-11-03 09:00 | NUR ---
Pt sitting up in bed w/ call light in reach, eating breakfast. Morning assesment complete and scheduled meds given per provider order. Pt denies any further needs at this time
--- NOTE | 2021-11-03 09:44 | NUR ---
Patietn via bathroom and back to bed 1PA with transfer. Patient can reach call light.
--- NOTE | 2021-11-03 09:45 | NUR ---
Right arm BP was 150/71. 87 Map. 86 Pulse.
--- NOTE | 2021-11-03 10:00 | NUR ---
Spoke with Niki. She is planning on dc today or tomorrow. Stating she needs a paracentisis completed by Dr. Holt tomorrow. States she has been staying at her boyfriends home as family are concerned about her staying alone at night. During my visit [facility] called and were unaware she is in the hospital. I was unaware she was see HH. Let them know I will let the Dr. know she needs resumption orders on discharge. Pt cannot remember what HH is seeing her for. Called [facility] and pt has SN 2x week for wound care and med management. Will update Dr. Carmen.
--- NOTE | 2021-11-03 11:00 | NUR ---
Pt sitting up on side of bed watching TV, w/ call light in reach, pt denies any needs at this time.
--- NOTE | 2021-11-03 13:00 | NUR ---
Pt c/o legs itching, discussed w/ provider, topical cream ordered.
--- NOTE | 2021-11-03 13:26 | NUR ---
PT SITTING UP IN BED, WATCHING TV.PT MUCH MORE ALERT, SMILING AND ENGAGED IN CONVERSATION. PT PLANS ON DC TOMORROW. GAVE BLESSING AND PRAYER. WILL FOLLOW NEEDED
--- NOTE | 2021-11-03 13:44 | NUR ---
Patient's sister is in room. Call light is in reach.
--- NOTE | 2021-11-03 18:00 | NUR ---
Pt resting in bed w/ call light in reach no needs at this time
--- NOTE | 2021-11-03 18:36 | NUR ---
Patient is in bed with call light in reach.
--- NOTE | 2021-11-03 19:20 | NUR ---
BEDSIDE REPORT FROM ROSSANA - PT DENIES NEEDS, CALL LIGHT IN REACH, FRIEND IN ROOM VISITING, SL IV INTACT, ORIENTED TO NEW NIGHT RN.
--- NOTE | 2021-11-03 21:36 | NUR ---
pt sleepy - awakened for meds, refilled fluids, denies needs. call light in reach.
--- NOTE | 2021-11-04 01:33 | NUR ---
vitals complete - pt awake. Iv sl flush wnl.
--- NOTE | 2021-11-04 06:56 | NUR ---
rn took pt vitals drowsy - resp and vitals wnl. denies needs. sleeping on r side.
--- NOTE | 2021-11-04 07:16 | NUR ---
Report from Sintia Recio RN. Patient resting in bed at this time. Call light in reach, bed rails up X2, respirations even and unlabored.
--- NOTE | 2021-11-04 07:25 | OR ---
[facility] [address] [place], [place] [address] Signed DATE OF OPERATION: 11/01/2021 SURGEON: Kate Sanabria MD PREOPERATIVE DIAGNOSES: History of hepatitis C virus with end-stage liver disease and ascites along with portal hypertension, splenomegaly and pancytopenia. POSTOPERATIVE DIAGNOSES: History of hepatitis C virus with end-stage liver disease and ascites along with portal hypertension, splenomegaly and pancytopenia. PROCEDURE: Right abdominal wall paracentesis (850 mL). ESTIMATED BLOOD LOSS: None. FINDINGS: Niki had 850 mL of very light donato fluid withdrawn. It was clear her abdomen was less distended and I think overall she did feel better. We did have our mining technician come and just do a limited ultrasound of the abdominal wall, particularly with respect to the inferior epigastric artery and vein. INDICATIONS: Niki is a 56-year-old female with a history of treated hepatitis C virus. Unfortunately, she developed end-stage liver disease with ascites. She has splenomegaly, pancytopenia, and developed intermittent encephalopathy. She is admitted to our hospitalist service about every two weeks. She is now on the transplant list. Her liver disease seems to be escalating in the last few weeks. She once again was encephalopathic, so her family brought her into the emergency room. She has been admitted to the Internal Medicine Service. She is improving with rectal lactulose. She is even better now than she was earlier this morning. I had reviewed her records and spoke with Niki this morning. I again spoke with her today. She is not able to verbalize but she tracks and shakes her head appropriately with myself and the nurse in the room. She has been through many paracenteses already. She is aware there is risk including, but not limited to bleeding, infection, scarring, change in contour of the skin, damage to bowel, as well as recurrent ascites. She had expressed understanding and wished to proceed. Electronically Signed By: KATE SANABRIA MD 11/04/21 0725 PATIENT NAME: NIKI VELARDE OPERATIVE REPORT DATE OF : 65 REPORT #: [id number] PHYSICIAN: KATE SANABRIA MD PCP: GRACE COFFEY MD REPORT IS CONFIDENTIAL AND NOT TO BE RELEASED WITHOUT AUTHORIZATION [facility] [address] [place], [place] [address] Signed DESCRIPTION OF PROCEDURE: Niki was kept supine in her ICU bed. Our mining technician was able to do a limited abdominal ultrasound. We could see the inferior epigastric artery and vein with the help of our Doppler. We chose to use the right side of her abdomen. We went slightly cephalad by maybe 2 cm from her previous paracentesis sites. That area was prepped and draped in the usual sterile fashion. Local anesthetic was injected in the skin and as far down in the abdominal wall as the needle would reach. We then inserted our paracentesis needle and catheter and as it came through the into the abdomen then we were able to draw back about 10 mL of clear light colored donato fluid. After this, the catheter was advanced and needle withdrawn. We hooked our catheter to vacutainer bottle and withdrew 850 mL of the fluid. We slowly withdrawn the catheter back. We were not able to withdraw any additional fluid even with changing out the vacutainer bottle. Therefore, the entire catheter was removed. Niki tolerated the procedure quite well. It is clear that her abdominal wall is much more compliant. We also hung 25 g of albumin while we were doing that procedure. The area was cleansed and a Band-Aid was then applied. Niki tolerated the procedure quite well. Kate Sanabria MD ALB/MODL /[id number] cc: Dr. Grace Sanabria MD Copies: KATE SANABRIA MD ~ Electronically Signed By: KATE SANABRIA MD 11/04/21 0725 PATIENT NAME: NIKI VELARDE OPERATIVE REPORT DATE OF : 65 REPORT #: [id number] PHYSICIAN: KATE SANABRIA MD PCP: GRACE COFFEY MD REPORT IS CONFIDENTIAL AND NOT TO BE RELEASED WITHOUT AUTHORIZATION
--- NOTE | 2021-11-04 07:25 | CONS ---
[facility] [address] [place], [place] [address] Signed DATE OF CONSULTATION: 11/01/2021 CHIEF COMPLAINT: Ascites. HISTORY OF PRESENT ILLNESS: Niki is a 56-year-old female, who now has end-stage liver disease with ascites, encephalopathy, varices, pancytopenia and secondary hepatitis C virus. Apparently, the hepatitis C virus has been treated in the past. She is now in the transplant list. She has been coming every other week for paracentesis in the radiology department in [place], [place]. However, she is now planning on going to our radiology department here in [place], [place]. She is admitted to our hospitalist service about every other week or so with encephalopathy. I have been asked to see her as a general surgeon on-call for consideration of paracentesis. PAST MEDICAL HISTORY: 1. End-stage liver disease. 2. Hepatitis C virus. 3. Portal hypertension with splenomegaly and pancytopenia. 4. Chronic renal insufficiency. 5. Type 2 diabetes. 6. Lower extremity edema. 7. Ascites. PAST SURGICAL HISTORY: Includes TIPS procedure, embolization coils in her upper abdomen. SOCIAL HISTORY: She does not smoke or drink. She does have a boyfriend. FAMILY HISTORY: None. REVIEW OF SYSTEMS: Unable to obtain because she is not able to speak this morning. Although she is better now and she was able to nod her head and answer appropriately to myself and the nurse. ALLERGIES: None. MEDICATIONS: 1. Insulin. Electronically Signed By: KATE SHIELDS MD 11/04/21 0725 PATIENT NAME: NIKI VELARDE CONSULTATION DATE OF : 65 REPORT #: [id number] PHYSICIAN: KATE SHIELDS MD PCP: LINDA COFFEY MD REPORT IS CONFIDENTIAL AND NOT TO BE RELEASED WITHOUT AUTHORIZATION [facility] [address] [place], [place] [address] Signed 2. Lactulose. 3. Omeprazole. 4. Rifaximin. 5. Colchicine. 6. Iron sulfate. 7. Spironolactone. 8. Lasix. 9. Sodium bicarbonate. PHYSICAL EXAMINATION: VITAL SIGNS: Blood pressure is 152/87, heart rate is 86, respiratory rate is 16, temperature is 98.1, she is 99% on 2 L. She is 5 feet 3 inches at 76 kg. GENERAL: Niki is a 56-year-old female, who was obtunded this morning, but at least able to answer and nod her head appropriately to questions. She is not talking, but she does track and answers appropriately. Her abdomen is moderately protuberant and firm but not particularly tight. She is nontender and there are no peritoneal signs or symptoms. She has no increased work of breathing or shortness of breath. LABORATORY DATA: Her white blood cell count 3.6, hemoglobin 10, mean cell volume is 99. Her platelet count is 64,000, BUN 42, creatinine 2.0, total bilirubin is 2.3, AST 42, ALT 28, alkaline phosphatase 163, albumin is 1.9. COVID is negative. Her INR was not drawn. RADIOGRAPHIC STUDIES: Chest x-ray showed no significant pleural effusion or pneumothorax. ASSESSMENT AND PLAN: Niki is a 56-year-old female, who presents with ongoing end-stage liver disease and ascites, which seems to be worsening. She actually was scheduled to have outpatient paracentesis with our radiologist in three days. I had met with Niki this morning along with the nurse. I did speak with Dr. Keating. She although not tense, she certainly is moderately firm and it seemed reasonable to go head and help her with a paracentesis while she was here admitted to the hospital. Apparently, her encephalopathy gets worse after the paracentesis. Normally they withdraw about 3 L of fluid. In that regard, we decided we would give her 25 g of albumin as we proceed with the paracentesis. She is quite familiar with paracentesis and understands there is risk including, but not limited to bleeding, infection, scarring, change in contour of the skin, damage to bowel as well as recurrent ascites. She had expressed understanding and wished to proceed. Electronically Signed By: KATE SHIELDS MD 11/04/21 0725 PATIENT NAME: NIKI VELARDE CONSULTATION DATE OF : 65 REPORT #: [id number] PHYSICIAN: KATE SHIELDS MD PCP: LINDA COFFEY MD REPORT IS CONFIDENTIAL AND NOT TO BE RELEASED WITHOUT AUTHORIZATION [facility] [address] [place] [id number] Signed Kate Shields MD ALB/MODL /[id number] cc: Kate Shields MD Copies: KATE SHIELDS MD ~ Electronically Signed By: KATE SHIELDS MD 11/04/21 0725 PATIENT NAME: NIKI VELARDE CONSULTATION DATE OF : 65 REPORT #: [id number] PHYSICIAN: KATE SHIELDS MD PCP: LINDA COFFEY MD REPORT IS CONFIDENTIAL AND NOT TO BE RELEASED WITHOUT AUTHORIZATION
--- NOTE | 2021-11-04 08:30 | NUR ---
Per [address] Carm[address]. Pt will have paracentisis today and dc to home following.
--- NOTE | 2021-11-04 08:41 | NUR ---
SITTING UP IN CHAIR, EATING LIGHT BREAKFAST OF TOAST AND CREAM OF WHEAT. ASSESSMENT COMPLETED. DENIES PAIN AT THIS TIME. AM MEDICATIONS ADMINISTERED. DROPS MULTIVITAMIN, REPLACEMENT GIVEN. DENIES OTHER NEEDS. CALL LIGHT IN REACH. AWARE OF PLAN FOR PARACENTESIS FOLLOWED BY RETURN TO ROOM FOR ALBUMIN THEN DC HOME IF SHE IS DOING WELL. CALL LIGHT IN REACH.
--- NOTE | 2021-11-04 10:05 | NUR ---
Patient is in chair with call light in reach and has had breakfast.
--- NOTE | 2021-11-04 10:10 | NUR ---
Taken to OR with OR staff for paracentesis.
--- NOTE | 2021-11-04 12:01 | NUR ---
Pt discharging per wc with boyfriend. Wished her well.
--- NOTE | 2021-11-04 12:45 | NUR ---
PT UP GETTING READY TO DC. HAS A SMILE ON HER FACE AND THANKED ME FOR CHECKING ON HER. GAVE BLESSING AND WILL FOLLOW NEEDED
--- NOTE | 2021-11-04 16:20 | NUR ---
Faxed referral, dc summary, and f2f to [facility] to resume care of this pt.
== END 2021-11-04 11:45 | disposition home or self-care (01) | DRG 432 ==
LOC: ED 10:22 → CCU 10:23 → ED 10:23 → CCU 11-02 09:30 → MS 11-02 17:50
PROVIDERS: ADMIT Student in an Organized Health Care Education/Training Program; ATTEND Student in an Organized Health Care Education/Training Program
PROC: 0W9G3ZZ Drainage of Peritoneal Cavity, Percutaneous Approach (ICD-10-PCS; principal; 2021-11-01)
DX: K74.60 Unspecified cirrhosis of liver (principal); K72.00 Acute and subacute hepatic failure without coma; G93.41 Metabolic encephalopathy; K76.6 Portal hypertension; E87.2 Acidosis; N18.4 Chronic kidney disease, stage 4 (severe); Z20.822 Contact with and (suspected) exposure to COVID-19; B18.2 Chronic viral hepatitis C; D69.6 Thrombocytopenia, unspecified; D73.1 Hypersplenism; E11.22 Type 2 diabetes mellitus with diabetic chronic kidney disease; Z98.890 Other specified postprocedural states; Z79.4 Long term (current) use of insulin; Z79.899 Other long term (current) drug therapy; K21.9 Gastro-esophageal reflux disease without esophagitis
CPT/HCPCS: 71045; 76705; 80053; 80500; 81001; 82140; 82247; 82248; 82803; 82945; 83735; 84157; 85025; 85610; 89051; 93005; 93010; 96374; 96375; 96376; C9113; G0378; J0360; J1815; J1940; J7070; J7121; P9047; U0003

== ENCOUNTER 2021-11-29 08:04 | Inpatient (IN) | payer MEDICARE, OTHER ==
[~2021-11-29] VITALS: Ht 160 cm; Wt 76.0 kg
--- OUTSIDE RECORDS SUMMARY | 2021-11-29 08:12 | XMS ---
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 E.D. VISIT COUNT (12 MO.) 1 [facility]io 4 [facility] TOTAL 20 NOTE: Visits indicate total known visits. ED/UCC VISIT TRACKING (12 MO.) 11/29/2021 08:05 [place] TYPE: Emergency COMPLAINT: - UNRESPONSIVE,POSS LIVER FAILURE 11/21/2021 11:[address] [facility] [place] COMPLAINT: - UNRESPONSIVE 11/14/2021 12:08 [facility] [place] [facility] COMPLAINT: - ALTERED LOC 11/07/2021 10:[address] [facility] [place] Emergency COMPLAINT: - UNRESPONSIVE 10/31/2021 10:[address] [facility] [place] TYPE: Emergency COMPLAINT: - ALTERED LOC 10/12/2021 09:[address] [facility] [place] TYPE: Emergency COMPLAINT: - UNCONCIOUS,LIVER FAILURE 10/08/2021 11:04 [place] TYPE: Emergency COMPLAINT: - ALTERED LOC 10/02/2021 07:59 [place] TYPE: Emergency [...] viral hepatitis C without hepatic coma 7. senior living (current) use of insulin 08/17/2021 15:06 [facility] [place] COMPLAINT: - LOWER BACK/ABD PAIN DIAGNOSES: - Unspecified abdominal pain - Type 2 diabetes mellitus without complications - Gastro-esophageal reflux disease without esophagitis - Somnolence - senior living (current) use of insulin - Other m[facility] (current) drug therapy - Hypokalemia 08/14/2021 10:32 [facility] Fat[place] TYPE: Emergency DIAGNOSES: - Abdominal Pain - Other ascites - Liver disease, unspecified - needs fluid drained from stomach 08/13/2021 17:58 [facility] [place] [facility] Emergency DIAGNOSES: - periantesis - Other ascites - Abdominal Distension 08/06/2021 11:14 [facility] DIAGNOSES: - Abdominal Distension; SOB - Other ascites - Medical Problem (Minor) - Hepatic failure, unspecified without coma 07/31/2021 13:13 [place] TYPE: Emergency COMPLAINT: - WEAKNESS 2021 09:07 [place] TYPE: Emergency COMPLAINT: - ALTERED LOC 06/11/2021 09:20 [place] TYPE: Emergency COMPLAINT: - ALTERED MENTAL STATUS, NO EATING/DRINK, FATIGUE [facility]21 [facility] DIAGNOSES: - Other ascites - fluid drained from stomach - Abdominal Pain 05/03/2021 17:[address] [facility] [place] TYPE: Emergency COMPLAINT: - DOG BITE DIAGNOSES: - Other buttermaker helper (current) drug therapy - Type 2 diabetes mellitus without complications - Open bite, left lower leg, initial encounter - senior living (current) use of opiate analgesic - Plantar fascial fibromatosis - continuous churn buttermaker (current) use of insulin - Gout, unspecified - Open bite, left lower leg, initial encounter - Bitten by dog, initial encounter INPATIENT VISIT TRACKING (12 MO.) 11/21/2021 11:29 [facility] TYPE: Observation COMPLAINT: - HEPATIC ENCEPHALOPATHY DIAGNOSES: - Type 2 diabetes mellitus with diabetic chronic kidney disease - Gastro-esophageal reflux disease without esophagitis - Chronic kidney disease, stage 4 (severe) - Hypertensive chronic kidney disease with stage 1 through stage 4 chronic kidney disease, or unspecified chronic kidney disease - Portal hypertension - Acute and subacute hepatic failure without coma - Unspecified viral hepatitis C without hepatic coma - Patient's noncompliance with other medical treatment and regimen - Chronic hepatic failure without coma - Thrombocytopenia, unspecified - senior living (current) use of insulin 11/14/2021 12:09 [facility] [place] TYPE: Observation COMPLAINT: - ENCEPHALOPATHY DIAGNOSES: - Other secondary thrombocytopenia - Unspecified viral hepatitis C without hepatic coma - Chronic hepatic failure without coma - Chronic kidney disease, stage 4 (severe) - senior living (current) use of insulin - OTHER TOXIC ENCEPHALOPATHY - Type 2 diabetes mellitus with diabetic chronic kidney disease - Personal history of other infectious and parasitic diseases - Gastro-esophageal reflux disease without esophagitis - Metabolic encephalopathy - Type 2 diabetes mellitus with ketoacidosis without coma 11/07/2021 10:20 [facility] [place] TYPE: Observation COMPLAINT: - HEPATIC ENCEPHALOPATHY DIAGNOSES: - continuous churn buttermaker (current) use of insulin - Type 2 diabetes mellitus with diabetic chronic kidney disease - Unspecified viral hepatitis C without hepatic coma - Hypersplenism - Portal hypertension - Hypertensive chronic kidney disease with stage 1 through stage 4 chronic kidney disease, or unspecified chronic kidney disease - Acute and subacute hepatic failure without coma - Other pancytopenia - Hepatic failure, unspecified without coma - Thrombocytopenia, unspecified - Chronic kidney disease, stage 4 (severe) 11/02/2021 09:30 [facility] [place] TYPE: Medical Surgical COMPLAINT: - HEPATIC ENCEPHALOPATHY DIAGNOSES: - Other specified postprocedural states - Metabolic encephalopathy - Chronic viral hepatitis C - Gastro-esophageal reflux disease without esophagitis - Gastro-esophageal reflux disease without esophagitis - Chronic kidney disease, stage 4 (severe) - Unspecified cirrhosis of liver - Other specified postprocedural states - Acidosis - Acidosis - Other mcc (current) drug therapy - Chronic kidney disease, stage 4 (severe) - Type 2 diabetes mellitus with diabetic chronic kidney disease - senior living (current) use of insulin - Unspecified cirrhosis of liver - continuous churn buttermaker (current) use of insulin - Chronic viral hepatitis C - Hypersplenism - Thrombocytopenia, unspecified - Acute and subacute hepatic failure without coma - Thrombocytopenia, unspecified - Other buttermaker helper (current) drug therapy - Portal hypertension - Acute and subacute hepatic failure without coma - Hypersplenism - Type 2 diabetes mellitus with diabetic chronic kidney disease - Portal hypertension 10/14/2021 18:57 [facility] TYPE: Internal Medicine DIAGNOSES: - Acidosis - [...] coma - Cystitis, unspecified without hematuria - COVID- - Portal hypertension - Unspecified viral hepatitis C without hepatic coma - senior living (current) use of insulin - Acidosis - Chronic kidney disease, stage 4 (severe) - Hypertensive chronic kidney disease with stage 1 through stage 4 chronic kidney disease, or unspecified chronic kidney disease - Unspecified cirrhosis of liver 10/08/2021 11:05 [facility] [place] TYPE: Observation COMPLAINT: - HEPATIC ENCEPHALOPATHY DIAGNOSES: - Chronic kidney disease, stage 4 (severe) - Hepatic failure, unspecified without coma - continuous churn buttermaker (current) use of insulin - Portal hypertension [...] - Other ascites - Portal hypertension - senior living (current) use of insulin - Type 2 diabetes mellitus with diabetic chronic kidney disease - Type 2 diabetes mellitus with diabetic chronic kidney disease - Chronic viral hepatitis C - Other mcc (current) drug therapy - Thrombocytopenia, unspecified - Thrombocytopenia, unspecified - Hypersplenism - Unspecified cirrhosis of liver - Acute kidney failure, unspecified - Hypersplenism - Anemia, unspecified - Hyperkalemia - Chronic kidney disease, stage 4 (severe) - Anemia, unspecified - Gastro-esophageal reflux disease without esophagitis 09/23/2021 13:12 [facility] [place] TYPE: Observation COMPLAINT: - HEPATIC ENCEPH DIAGNOSES: - Hepatic failure, unspecified without coma - senior living (current) use of insulin - Acute and [...] - Gastro-esophageal reflux disease without esophagitis - continuous churn buttermaker (current) use of insulin - Type 2 diabetes mellitus with diabetic chronic kidney disease - Dehydration - Dehydration - Portal hypertension - Anemia in other chronic diseases classified elsewhere - continuous churn buttermaker (current) use of insulin - Hypersplenism - Postprocedural hepatic failure - Hypersplenism - Gastro-esophageal reflux disease without esophagitis - Unspecified viral hepatitis C without hepatic coma - Unspecified cirrhosis of liver - Unspecified viral hepatitis C without hepatic coma - Unspecified cirrhosis of liver - Other pancytopenia - Other mcc (current) drug therapy - Anemia in other chronic diseases classified elsewhere - Anemia in chronic kidney disease - Other pancytopenia - Chronic kidney disease, stage 4 (severe) - Portal hypertension - Other buttermaker helper (current) drug therapy 08/26/2021 13:56 [place] TYPE: Medical Surgical COMPLAINT: - HEPATIC ENCEPHALOPATHY DIAGNOSES: - Unspecified cirrhosis of liver - Personal history of other infectious and parasitic diseases - Hypertensive chronic kidney disease with stage 1 through stage 4 chronic kidney disease, or unspecified chronic kidney disease - Portal hypertension - Other pancytopenia - Other mcc (current) drug therapy - Dehydration - Other specified postprocedural states - Acute and subacute hepatic failure without coma - Gastro-esophageal reflux disease without esophagitis - Hypertensive chronic kidney disease with stage 1 through stage 4 chronic kidney disease, or unspecified chronic kidney disease - continuous churn buttermaker (current) use of insulin - Hypersplenism - Acidosis - Type 2 diabetes mellitus with diabetic chronic kidney disease - Gastro-esophageal reflux disease without esophagitis - Dehydration - Other mcc (current) drug therapy - Chronic kidney disease, stage 4 (severe) - COVID-19 - Unspecified cirrhosis of liver - Portal hypertension - Hypersplenism - Chronic kidney disease, stage 4 (severe) - Type 2 diabetes mellitus with diabetic chronic kidney disease - Other specified postprocedural states - continuous churn buttermaker (current) use of insulin - COVID-19 - Acidosis - Secondary esophageal varices without bleeding - Personal history of other infectious and parasitic diseases 07/31/2021 17:24 [facility] [place] TYPE: Observation COMPLAINT: - HEPATIC ENCEPHALOPATHY DIAGNOSES: - COVID-19 - Urinary tract infection, site not specified - Unspecified viral hepatitis C without hepatic coma - Metabolic encephalopathy - continuous churn buttermaker (current) use of insulin - Type 2 diabetes mellitus with diabetic chronic kidney disease - Hepatic failure, unspecified without coma - Chronic kidney disease, stage 4 (severe) 2021 13:07 [place] TYPE: Medical Surgical COMPLAINT: - HEPATIC ENCEPHALOPATHY DIAGNOSES: - senior living (current) use of insulin - Portal hypertension - Chronic kidney disease, stage 4 (severe) - Other mcc (current) drug therapy - Acute and subacute hepatic failure without coma - Type 2 diabetes mellitus with diabetic chronic kidney disease - Unspecified cirrhosis of liver - Unspecified viral hepatitis C without hepatic coma - Gastro-esophageal reflux disease without esophagitis 06/11/2021 16:[address] [facility] [place] TYPE: Medical Surgical COMPLAINT: - ENCEPHALOPATHY DIAGNOSES: - continuous churn buttermaker (current) use of insulin - Chronic kidney [...] - Other specified postprocedural states - Other buttermaker helper (current) drug therapy - Metabolic encephalopathy - continuous churn buttermaker (current) use of systemic steroids - Aphasia - continuous churn buttermaker (current) use of systemic steroids - continuous churn buttermaker (current) use of insulin - Other buttermaker helper (current) drug therapy [email or web address]
--- NOTE | 2021-11-29 10:18 | NUR ---
ASSESSMENT COMPLETED. PT COMPLETELY OBTUNDED, ON OPENS EYES TO PAIN, SNORE NOTED. SPO2 = 100 PERCENT ON ROOM IAR. PT TURNED ONTO SIDE AND HEAD OF BED ELEVATED FOR ASPIRATION PREVENTION. HEART RATE 90-110 AT REST IN A SINUS RHYTHM. ABDOMEN IS SEVERLY DESTENDED. +1 BILATERALLY LOWER LEG EDEMA NOTED. IV FLUIDS INFUSING (SEE EMAR). BED ALARM IN PLACE, WILL CONTINUE TO CLOSELY MONITOR.
--- NOTE | 2021-11-29 11:16 | NUR ---
PT had small liquid bm. PT remains only responsive to painful stimuli. IV fluids infusing, call light within reach. will continue to monitor.
--- NOTE | 2021-11-29 12:29 | NUR ---
PT HAD ANOTHER SMALL BM. PT REMAINS UNRESPONSIVE TO TOUCH. SPO2 = 98% ON ROOM AIR. IV FLUIDS INFUSING. WILL CONTINUE TOMORROW.
--- NOTE | 2021-11-29 14:00 | NUR ---
PT HAS WHEEZES IN THE UPPER AIRWAY, DIMISHED IN BOTH BASES. PTS URINE OUTPUT HAS DECREASED AND BLOOD PRESSURES INCREASED. DR BROOKS IN PT ROOM TO ASSESS AT THIS TIME. ORDERS RECIEVED (SEE EMAR). SECONDARY IV STARTED AT THIS TIME. PT NOT RESPONSIVE TO PAIN.
--- NOTE | 2021-11-29 14:45 | NUR ---
ADDITIONAL DOSE OF LACTULOSE ENEMA GIVEN AT THIS TIME PER DR BROOKS VERBAL ORDER.
--- NOTE | 2021-11-29 14:58 | NUR ---
AFTER GIVING ADDITIONAL ENULOSE ENEMA, WHILE PT WAS IN A LEFT SIDE LAYING POSITION, HEART RATE UP INTO THE 140S. 10 MG OF PRN LABETALOL GIVEN AT THIS TIME. PT'S HEART RATE NOW IN THE 80-90S AT REST. THIS RN REMAINS AT BEDSIDE
--- NOTE | 2021-11-29 15:54 | NUR ---
Medications reconciled by pharmacy
--- NOTE | 2021-11-29 15:59 | NUR ---
DAUGHTER AT PT BEDSIDE AT THIS TIME. COPIES OF PT'S ADVANCED DIRECTIVE PLACE IN PT CHART. LAB NOW IN ROOM FOR BLOOD DRAW.
--- NOTE | 2021-11-29 16:15 | NUR ---
BLOOD LEAKING FROM LEFT AC IV. COMPLETE BED CHANGE DONE. NASSAR CARE ALSO COMPLETED AT THIS TIME. PT REMAINS OBTUNDED. RESPIRATIONS AT 10 BREATHS A MINUTE SP02= 98%, HEART RATE IN THE 80-90 AT REST.
--- NOTE | 2021-11-29 16:24 | NUR ---
DR BROOKS IN ROOM TO SPEAK TO PTS DAUGHTER AT THIS TIME.
--- NOTE | 2021-11-29 16:30 | NUR ---
Updated by Dr. Keating he has spoken with the family and daughter is bringing POA. Pt would like full treatment per poa. Niki Kauffman's sister plans on taking pt to see transplant team next week. Will make a plan to assist family with getting pt to [place]. This has been discussed with pts sister on last two admissions.
--- NOTE | 2021-11-29 17:20 | NUR ---
PT GIVEN LACTULOSE ENEMA AT THIS TIME. NO NOTED CHANGES IN NUERO STATUS. PT REMAINS OBTUNDED. HEART RATE IN THE 80S AT REST. PT GIVEN ONE UNIT OF INSULIN PER SLIDING SCALE (SEE EMAR). IV FLUIDS CONTINUE TO INFUSE. WILL CONTINUE TO MONITOR.
--- NOTE | 2021-11-29 19:24 | NUR ---
REPORT RECEIVED FROM JUAN A RN, WILL CONTINUE PLAN OF CARE.
--- NOTE | 2021-11-29 19:45 | NUR ---
PT LAYING IN BED AT THIS TIME, IVF INFUSING AT ORDERED RATE. PT IS OBTUNDED AND DOES NOT AWAKE TO SOUND OR TOUCH. PT IN NO APPARENT DISTRESS AT THIS TIME, RESPIRATIONS EVEN AND UNLABORED, PT ON ROOM AIR. NO NEEDS ASSESSED AT THIS TIME, WILL CONTINUE PLAN OF CARE.
--- NOTE | 2021-11-29 20:44 | EKG ---
[facility] [address] [place], [place] [address] Signed Sinus tachycardia Otherwise normal ECG When compared with ECG of 31-OCT-2021 11:18, No significant change was found Confirmed by MELECIO BROOKS DO ([id number]) on 11/29/2021 8:44:12 PM Electronically Signed By: MELECIO BROOKS DO 11/29/212043 PATIENT NAME: LAURIE VELARDE RAFAEL Electrocardiogram DATE OF : 65 PHYSICIAN: MELECIO BROOKS DO REPORT #: [id number] REPORT IS CONFIDENTIAL AND NOT TO BE RELEASED WITHOUT AUTHORIZATION
--- NOTE | 2021-11-29 21:20 | NUR ---
PT LAYING IN BED AND IS OBTUNDED. PT DOES NOT AWAKE TO SOUND OR TOUCH. RESPIRATIONS EVEN AND UNLABORED, PT ON ROOM AIR, SPO2 100%. VITALS TAKEN AT THIS TIME AND PT ASSESSED. LUNGS ARE CLEAR THROUGHOUT, ABDOMEN DISTENDED AND FIRM, ACTIVE BOWEL TONES PRESENT. MURMUR HEARD WHEN AUSCULTATING HEART SOUNDS. BRUISING PRESENT ON BOTH ARMS BILATERALLY. +2 EDEMA PRESENT IN LOWER LEGS/ANKLES BILATERALLY, RADIAL AND PEDAL PULSES STRONG, BRISK CAPILLARY REFILL PRESENT. SCHEDULED MEDICATIONS ADMINISTERED WITH THE EXCEPTION OF PO AND NASAL SPRAY MEDICATIONS PT IS OBTUNDED (SEE MAR). NO INSULIN GIVE PER SLIDING SCALE. WHILE ADMINISTERING LACTULOSE ENEMA PT HAD A SMALL BUTSOS LIQUID BM. PT WAS CLEANED, PERICARE DONE, NEW PADS AND ATTENDS PLACED. PT THEN REPOSITIONED ONTO HER LEFT SIDE TO REST. IVF INFUSING ORDERED, NASSAR DRAINING, BED IN LOWEST POSITION, BED ALARM ON, WILL CONTINUE PLAN OF CARE.
--- NOTE | 2021-11-29 22:45 | NUR ---
PT LAYING IN BED AND IS STIL OBTUNDED, ON ROOM AIR, SPO2 100%. SBP OVER 185, PRN LABETOLOL 10MG IV ADMINISTERED PER PARAMETERS (SEE CHART/MAR). PT IN NO APPARENT DISTRESS, RESPIRATIONS NOTED AND ARE EVEN AND UNLABORED. PT RESTING ON HER RIGHT SIDE RESTING, IVF AND IV POTASSIUM INFUSING AT ORDERED RATES (SEE MAR). BED IN LOWEST POSITION, BED ALARM ON, WILL CONTINUE PLAN OF CARE.
--- NOTE | 2021-11-29 23:30 | NUR ---
PT LAYING IN BED ON HER RIGHT SIDE SLEEPING/OBTUNDED. PT NOTED TO YAWN BUT DOES NOT OPEN EYES TO SOUND/TOUCH. PT IN NO APPARENT DISTRESS. NEW BAG OF IV POTASSIUM STARTED AND NOW INFUSING AT ORDERED RATE (SEE MAR). IVF ALSO INFUSING AT ORDERED RATE. PT LAYING IN BED, NASSAR DRAINING, NO BM NOTED AT THIS TIME, WILL CONTINUE PLAN OF CARE.
--- NOTE | 2021-11-30 00:38 | NUR ---
PT LAYING IN BED ON HER RIGHT SIDE RESTING. PT STILL OBTUNDED AND DOES NOT OPEN EYES TO SOUND/TOUCH. EYES 5MM AND REACTIVE TO LIGHT WHEN ASSESSED. VITALS TAKEN AND PT ASSESSED (SEE CHART). PT CHECKED AND HAS NOT HAD A BM, NASSAR DRAINING YELLOW URINE. NEW BAG OF SCHEDULED IV POTASSIUM STARTED AND NOW INFUSING (SEE MAR). PT REPOSITIONED ON TO HER LEFT SIDE AT THIS TIME WITH THE HELP OF ANDREI FRASER. PT IN NO APPARENT DISTRESS, NO FURTHER NEEDS ASSESSED, BED IN LOWEST POSITION, WILL CONTINUE PLAN OF CARE.
--- NOTE | 2021-11-30 02:21 | NUR ---
PT LAYING IN BED SLEEPING AND IS STILL OBTUNDED PT DOES NOT AWAKE TO VOICE/TOUCH. IVF AND IV POTASSIUM INFUSING AT ORDERED RATES. PT IN NO APPARENT DISTRESS, RESPIRATIONS EVEN AND UNLABORED, SPO2 100% ON ROOM AIR. PT CHECKED AND HAS NOT HAD A BM, NASSAR DRAINING. PT IN NO APPARENT DISTRESS, NO NEEDS ASSESSED AT THIS TIME, WILL CONTINUE PLAN OF CARE.
--- NOTE | 2021-11-30 03:41 | NUR ---
PT IV PUMP ALARMING, IVF COMPLETE, NEW BAG STARTED AND INFUSING AT ORDERED. RATE. LAYING IN BED OBTUNDED. PT DOES NOT OPEN EYES TO SOUND/TOUCH BUT RESPONDS TO TOUCH VIA MOVING. PT ON ROOM AIR, 100% SPO2. VITALS TAKEN AT THIS TIME AND PT ASSESSED (SEE CHART). PT IN NO APPARENT DISTRESS AT THIS TIME, NO FURTHER NEEDS ASSESSED, NASSAR DRAINING, BED IN LOWEST POSITION, WILL CONTINUE PLAN OF CARE.
--- NOTE | 2021-11-30 05:41 | NUR ---
DRY HOUSE TENDER LEAVING PT'S ROOM AT THIS TIME WITH LABS. PT LAYING IN BED OBTUNDED, ON ROOM AIR, SPO2 100%. IVF INFUSING ORDERED. PT DOES NOT OPEN EYES TO SOUND BUT RESPONDS TO TOUCH. WHILE REPOSITIONING PT IN BED WITH ASSISTANCE PT BRIEFLY OPENED HER EYES BUT REMAINED CLOSED AFTERWARDS TO SOUND AND LIGHT TOUCH. PT RESTING IN BED IN NO APPARENT DISTRESS, NO FURTHER NEEDS ASSESSED, NO BM NOTED, NASSAR DRAINING YELLOW CONCENTRATED URINE, WILL CONTINUE PLAN OF CARE.
--- NOTE | 2021-11-30 08:31 | NUR ---
INTO [facility]'S ROOM FOR MEDS AND ASSESSMENT. PT OPENS EYES TO PAIN, WITHDRAWS FROM PAINFUL STIMULI, BUT IS NOT TALKING AT THIS TIME. IVF CONTINUE AT 125 ML/HR. IV ALBUMIN STARTED. PT DUE TO HAVE LACULOSE ENEMA, SHE IS STILL UNABLE TO TAKE ANYTHING BY MOUTH. NASSAR DRAINING CONCENTRATED URINE AT THIS TIME. PT'S ABDOMEN REMAINS DISTENDED, BUT MAYBE SLIGHTLY LESS DISTENDED THAN YESTERDAY. PT REMAINS ON ROOM AIR. LUNGS ARE CLEAR TO AUSCULTATION ANTERIORLY. COTNINUE TO MONITOR.
--- NOTE | 2021-11-30 09:41 | NUR ---
PATIENT ASSESSMENT COMPLETED. PER PATIENT FAMILY PATIENT HAS APPOINTMENT SCHEDULE AT [facility] NEXT WEEK. PER OUR COMMUNITY OUTREACH NICKOLAS BOB PATIENT DOES RECIEVE 33 CAREGIVING HOURS PER 2 WEEKS. PATIENT CURRENT DELICIA IS HER SISTER TIANA. PATIENTS DAUGHTER JANAK PRESENTED TO ER WITH STEFF MIGUEL IS A FULL CODE. WILL CONTINUE TO EVALUATE PATIENT FOR DISCHARGE NEEDS AND ASSIST IN ANY WAY WITH FACILITATING APPOINTMENT AT [facility] NEXT WEEK.
--- NOTE | 2021-11-30 10:29 | NUR ---
PATIENT GIVEN LACTULOSE ENEMA. PT DID FAIR WITH THIS, AND DID SHOW SOME RESISTANCE TO BEING MOVED AND HAVING ENEMA. ATTEMPTED TO GIVE PATIENT A DRINK OF WATER BUT UNABLE/UNWILLING TO DRINK ANYTHING AT THIS POINT. PATIENT NOW RESTING ON LEFT SIDE WITH ATTENDS IN PLACE. WILL CHANGE PATIENT SOON.
--- NOTE | 2021-11-30 11:06 | NUR ---
2PA, PATIENT WAS INCONTINENT OF STOOL. NEW BRIEF AND CACHORRO UNDER PATIENT. PATIENT PAINFUL TO MOVE, CURSING NOT AT STAFF, BUT IN GENERAL. PATIENT NOW ON LEFT SIDE, BED ALARM ON FOR SAFETY.
--- NOTE | 2021-11-30 13:18 | NUR ---
DISCUSSED PT'S CONDITION WITH CCU STAFF-PT UNRESPONSIVE AT THIS TIME. PRAYED FOR PT. WILL CONTINUE TO FOLLOW
--- NOTE | 2021-11-30 13:30 | NUR ---
1300 DOSE OF LACTULOSE GIVEN TN. PT HAVING LARGE AMOUNTS OF LIQUID STOOL UPON RETURN. LINENS CHANGED.
--- NOTE | 2021-11-30 15:24 | NUR ---
PATIENT HAD A GOOD RESPONSE TO THE 1300 LACTULOSE ENEMA AND HAS HAD A LARGE BM, WITH A FULL LINEN CHANGE. PATIENT TOLERATED FAIR. PT STILL NOT VERY INTERACTIVE, BUT DOES SAY "FUCK" WHEN TRYING TO CLEAN PATIENT. PT POSITIONED TO RIGHT SIDE AND HAS PILLOWS FOR COMFORT. CONTINUE TO MONITOR.
--- NOTE | 2021-11-30 16:15 | NUR ---
LAB IN ROOM TO DRAW 1600 BMP. THIS RN ASSISTS STRIPPER PRELIMINARY TO GET BLOOD DRAWN DUE OT PATIENT PULLING AWAY. PT HAS BECOME MORE PUFFY AND SWOLLEN IN EXTREMEITES, MAKING IT EVEN HARDER TO HAVE A VENIPUNCTURE. URINE OUTPUT AT 1600 WAS 50 ML.
--- NOTE | 2021-11-30 19:48 | NUR ---
REPORT RECEIVED FROM JUAN A RN, WILL CONTINUE PLAN OF CARE.
--- NOTE | 2021-11-30 20:35 | NUR ---
PT LAYING IN BED ASLEEP AND AWAKES EASILY. PT DOES NOT REPLY TO QUESTIONS BUT DOES RESPOND TO VOICE AND FOLLOWS SIMPLE COMMANDS AT TIMES. IVF INFUSING AT ORDERED RATE AT THIS TIME. VITALS TAKEN AND PT ASSESSED (SEE CHART). PT LUNGS ARE CLEARE, ACTIVE BOWEL TONES, MURMUR HEARD. ABDOMEN HAS ASCITES, PT EDEMATOUS, PERIORBITAL EDEMA NOTED. PITTING EDEMA STILL PRESENT IN LOWER LEGS BILATERALLY. PT HAS STRONG RADIAL AND PEDAL PULSES AND BRISK CAPILLARY REFILL. SCHEDULED MEDICATIONS ADMINISTERED PO LACTULOSE TAKE BY PT, 3 UNITS OF INSULIN GIVEN PER SLIDING SCALE, IV ALBUMIN NOW INFUSING. PT REFUSED TO TAKE PO XIFAXAN. PT NOW RESTING IN BED, NO BM NOTED AT THIS TIME, NASSAR DRAINING CONCENTRATED BUT CLEAR URINE. PT IN NO APAPRENT DISTRESS, NO APPARENT NEEDS NOTED AT THIS TIME, WILL CONTINUE PLAN OF CARE. CALL LIGHT IN REACH, BED IN LOWEST POSITION, BED ALARM ON.
--- NOTE | 2021-11-30 21:24 | NUR ---
PT LAYING IN BED ATTEMPTING TO SIT UP AND GET OUT OF BED. PT NOTED TO HAVE HAD A LIQUID BM. PERICARE DONE, WHILE DOING PERICARE PT HAD A SECOND LIQUID BM. PERICARE DONE AFTERWARDS, CLEAN SHEETS, ATTENDS, AND PADS NOW IN PLACE. ANDREI PAZ IN TO ASSISTED WITH CARES AND REPOSITIONING PT OVER TO HER LEFT SIDE. PT NOW RESTING IN BED, IVF INFUSING ORDERED. PT REPORTS NO FURTHER NEEDS WHEN ASKED, NO FURTHER NEEDS ASSESSED AT THIS TIME, WILL CONTINUE PLAN OF CARE. BED IN LOWEST POSITION, BED ALARM ON.
--- NOTE | 2021-12-01 00:05 | NUR ---
PT LAYING IN BED, ANDREI AHUJA IN ROOM ASSISTING IN DOING A BED CHANGE. PT HAD A LARGE INCONTINENT LIQUID BM. PERICARE DONE, BED CHANGE COMPLETED, NEW ATTENDS AND PADS IN PLACE. PT RESISTANT TO CARES AND REFUSING TO TURN TO ASSIST WITH BEDCHANGE, PT STATED "FUCK" REPEATEDLY WHEN REPOSITIONING SHEETS AND PADS UNDERNEATH HER. AFTER CHANGE, PT DRANK 500ML OF WATER. VITALS THEN TAKEN AND PT ASSESSED (SEE CHART). IVF COMPLETED AT THIS TIME, PT NOW SALINE LOCKED. PT OPENS EYES SPONTANEUOUSLY AND IS AWAKE BUT STILL DOES NOT REPLY TO QUESTIONS BUT DOES FOLLOW COMMANDS AT TIMES. PT NOW RESTING ON HER LEFT SIDE IN BED. NO FURTHER NEEDS ASSESSED. BED IN LOWEST POSITION, BED ALARM ON, WILL CONTINUE PLAN OF CARE.
--- NOTE | 2021-12-01 02:32 | NUR ---
PT LAYING IN BED SLEEPING ON HER LEFT SIDE. PT IN NO APPARENT DISTRESS AT THIS TIME, RESPIRATIONS NOTED AND ARE EVEN AND UNLABORED. PT WAS LEFT UNDISTURBED, WILL CONTINUE PLAN OF CARE. BED ALARM ON, BED IN LOWEST POSITION.
--- NOTE | 2021-12-01 03:45 | NUR ---
PT LAYING IN BED ON RIGHT SIDE SLEEPING, ON ROOM AIR, SPO2 100%. PT AWAKES EASILY BUT DOES NOT RESPOND TO QUESTIONS. VITALS TAKEN AT THIS TIME, PT ASSESSED (SEE CHART). PT INCONTINENT OF STOOL AT THIS TIME. PERICARE DONE. NEW PAD AND ATTENDS IN PLACE WITH THE HELP OF ANDREI AHUJA. PT VERBALIZING "FUCK" AND "SHIT" WHEN REPOSITIONING PT TO PROVIDE PERICARE AND PLACE CLEAN PADS/ATTENDS ON. PT MORE AWAKE THEN PRIOR BUT NOT RESPONDING TO QUESTIONS AND WILL FOLLOW COMMANDS AT TIMES. PT REPOSITIONED IN BED AFTERWARDS AND RETURNED BACK TO SLEEP SHORTLY AFTER. NO FURTHER NEEDS ASSESSED AT THIS TIME, WILL CONTINUE PLAN OF CARE. BED IN LOWEST POSITION, BED ALARM ON.
--- NOTE | 2021-12-01 05:55 | NUR ---
PT LAYING IN BED SLEEPING. PT AWOKE EASILY AND WAS OFFERED A DRINK OF WATER, PT NODDED YES. PT DRANK 600ML OF WATER AT THIS TIME. AFTERWARDS PT WAS CHECKED AND WAS INCONTINENT OF STOOL. PT HAD A SMALL LIQUID BM. NEW ATTENDS AND PAD IN PLACE AFTER PROVIDING PERICARE. PT NOW RESTING IN BED ON HER LEFT SIDE AWAKE. PT REPORTS NO FURTHER NEEDS WHEN ASKED, PT MORE AWAKE THAN PRIOR BUT STILL NOT VERBALLY RESPONDING TO QUESTIONS. PT FOLLOWING SIMPLE COMMANDS AT TIMES. NO FURTHER NEEDS ASSESSED, WILL CONTINUE PLAN OF CARE. BED IN LOWEST POSITION, BED ALARM ON.
--- NOTE | 2021-12-01 08:35 | NUR ---
ASSESSMENT AND MEDICATION ADMINISTRATION COMPLETED. PT ALERT AND ORIENTED TO SELF, PLACE, AND SITUATION. REMAINS DISORIENTED TO EVENT. TOOK ORAL MEDICATIONS WITH NO ISSUES. PT NOTED TO HAVE PERIORBITAL EDEMA AND GENERALIZED EDEMA. LUNGS SOUND DIM IN BILATERAL BASES. SPO2 = 97% ON ROOM AIR. PLAN OF CARE FOR DAY ESTABLISHED. ALBUMIN CURRENTLY INFUSING. CALL LIGHT WITHIN REACH AND BED ALARM IN PLACE. WILL CONTINUE TO MONITOR.
--- NOTE | 2021-12-01 08:55 | NUR ---
DR BROOKS UPDATED ON PT'S POTASSIUM LEVEL AND OTHER LABS AT THIS TIME.
--- NOTE | 2021-12-01 10:07 | NUR ---
PT UP TO CHAIR AFTER USING BSC. ORAL POTASSIUM AND BICARBONATE GIVEN AT THIS TIME. PT GIVEN A BED BATH BY PERIPATOLOGIST. URINE OUTPUT CONTINUES TO BE MARGINAL. CALL LGIHT WITHIN REACH. CHAIR ALARM IN PLACE. WILL CONTINUE TO MONITOR.
--- NOTE | 2021-12-01 10:41 | NUR ---
PATIENT IS HUNGRY, REQUESTING SOMETHING MORE THAN CLEAR LIQUIDS TO EAT. DR BROOKS IN ROOM NOW.
--- NOTE | 2021-12-01 10:42 | NUR ---
DR BROOKS IN ROOMO AT [facility] TIME TO ASSESS PT
--- NOTE | 2021-12-01 11:04 | NUR ---
CALL LIGHT ANSWERED, 1PA TO BSC. PATIENT NOW IN BED, WARM BLANKET PROVIDED PER REQUEST. CALL LIGHT IN EASY REACH. BED ALARM ON FOR SAFETY
--- NOTE | 2021-12-01 11:45 | NUR ---
Spoke with Niki. States she still does not feel well and does not feel herself. Cont. to plan for trip to [place] to meet with the transplant team next week.
--- NOTE | 2021-12-01 12:12 | NUR ---
PT UP TO BSC AND BACK TO BED. REQUESTED NASSAR BE REMOVED AT THIS TIME. WELL TOLERATED BY PT. ASSESSMENT COMPLETED. LUNGS CLEAR THROUGHOUT. JAILER DC'D. PT NOW EATING LUNCH. CALL LIGHT WITHIN REACH. DENIES FURTHER NEEDS AT THIS TIME.
--- NOTE | 2021-12-01 13:17 | NUR ---
PT SITTING UP IN CHAIR, TEARS FLOWING. PT SOMEWHAT MORE AWARE OAY, BUT STILL NOT TO BASELINE. TEARS FLOWED, PT KNODDED YES WHEN ASKED IF SHE WANTED HER EHR TRAINER NOTIFIED SHE IS HERE. CONTACT MADE, HAD PRAYER WITH PT, WILL FOLLOW FOLLOW NEEDED
--- NOTE | 2021-12-01 14:30 | NUR ---
Asked by staff to return as pt has questions. REturned to room and pts sister is in the room, Niki states her sister Daly has questions. Daly looks surprised and shakes her head, "No".
--- NOTE | 2021-12-01 15:00 | NUR ---
PATIENT UP TO BR INDEPENDANTLY. CALLED FOR A NEW PAIR OF BRIEFS, A SPRITE AND A WARM BLANKET. SISTER AT BEDSIDE.
--- NOTE | 2021-12-01 15:09 | NUR ---
ASSESSMENT COMPLETED. PT AMBULATED TO BATHROOM WITH ONE PERSON ASSIST. UNSTEADY ON FEET AT TIMES. PT HAD LARGE LOOSE BM AND VOIDED. NOW BACK IN BED. PERIORBITAL EDEMA HAS DECREASED. SISTER REMAINS AT BEDSIDE. CALL LIGHT WITHIN REACH. WILL CONTINUE TO MONITOR.
--- NOTE | 2021-12-01 16:37 | NUR ---
report from kaia mendieta. pt trsf to 107 med surg.
--- NOTE | 2021-12-01 16:48 | NUR ---
REPORT GIVEN TO ANDREI BOOGIE ON THE MEDICAL FLOOR. PT TRANSPORTED VIA BED BY THIS RN TO ROOM 107. ALL BELONGINGS TRANSPORTED WITH PT.
--- NOTE | 2021-12-01 18:04 | NUR ---
confirmed enulose po order with [facility] and Manuela Maki char house supervisor. 45 gm po given. pt eating meal and water provided. pt denies other needs.
--- NOTE | 2021-12-01 19:05 | NUR ---
this rn called xray to confirm 9 am appt. for out pt peracentesis. night and day charge both aware of appt. need to hold am enulose for test. verbalized to both.
--- NOTE | 2021-12-01 19:30 | NUR ---
RECEIVED REPORT, PT IS AWAKE IN BED. SHE FEEL BLOATED. PINNED PARESH DRAIN TO GOWN AND ASSISTED HER TO THE RESTROOM. SHE IS GOING FOR A WALK IN THE [place] RIGHT NOW WITH DOREEN GERMAIN.
--- NOTE | 2021-12-01 19:45 | NUR ---
HOLDING 0900 LACTULOSE FOR AM PROCEDURE PER PROCEDURE.
--- NOTE | 2021-12-01 21:30 | NUR ---
IN ROOM TO ADMINISTER EVENING MEDICATION. PT ABLE TO TAKE PO LACTULOSE PER ORDERS ALONG WITH OTHER MEDICATIONS. PT REPORTS ABD PAIN BUT DENIES NEED FOR PAIN MED. PT STATES IT WILL FEEL BETTER AFTER PARACENTESIS TOMORROW. PT ON PHONE TALKING TO A FAMILY MEMBER ABOUT PICKING HER UP TOMORROW AFTER HER PROCEDURE. PT DENIES NEEDS AT THIS TIME. CALL LIGHT IS CLOSE.
--- NOTE | 2021-12-01 23:13 | NUR ---
ASSISTED PT TO BR, 1P SBA. PT USED TOILET TWICE AND BRUSED HER TEETH. PT ASKED FOR CLAMING TEA, THIS PIGMENT PRESSER PROVIDED HER TEA. PT BACK IN BED CALL LIGHT WITHIN REACH.
--- NOTE | 2021-12-01 23:35 | NUR ---
CHECKED ON PT SHE IS AWAKE IN BED, REQUESTED MORE CRYSTAL LIGHT AND WATER. SHE DENIES FURTHER NEEDS AT THIS POINT. CALL LIGHT IS CLOSE.
--- NOTE | 2021-12-02 00:50 | NUR ---
PT IS RESTING WITH EYES CLOSED, RR IS EVEN AND UNLABORED. CALL LIGHT IS CLOSE.
--- NOTE | 2021-12-02 02:18 | NUR ---
PT IS RESTING WITH EYES CLOSED, RR IS EVEN AND UNLABORED. CALL LIGHT IS CLOSE.
--- NOTE | 2021-12-02 03:49 | NUR ---
ANSWERED PT CALL LIGHT, ASSISTED PT TO BR. PT BACK TO BED, VS DONE, I/O DONE. CALL LIGHT WITHIN REACH NO FURTHER ASSISTANCE NEEDED AT THIS TIME.
--- NOTE | 2021-12-02 04:08 | NUR ---
ENTERED ROOM TO ANSWER PT'S QUESTION. SHE ASKED IF SHE IS GIVING BLOOD TODAY. ADVISED PT SHE DOES HAVE LABS THAT WILL BE DRAWN THIS MORNING. SHE DENIES SOB AND REPORTS PAIN TOLERABLE. PT DENIES FURTHER NEEDS. CALL LIGHT IS CLOSE.
--- NOTE | 2021-12-02 07:56 | NUR ---
bedside report from araceli - pt eyes closed, call light in reach.
--- NOTE | 2021-12-02 08:05 | NUR ---
pt amb to br with standby assist of rn and student rn. denies needs, left eye noted to have bloodshot red vessel noted in sclera. pt amb to chair after bathroom, vitals taken and pt declined cbg as she does not want to eat until after am procedure.
--- NOTE | 2021-12-02 08:52 | NUR ---
dr lee in room with pt trsf to [place] to go to paracentisis. pt alert and oriented. discussed dc to [facility] pt to provide own tranportation and plan to leave sat. am.
--- NOTE | 2021-12-02 10:00 | NUR ---
Pt waving at me to come into her room. Asked how she is doing today and she begins to cry. States she has to stay until Monday. States she she going to [place] on Mon and will meet with transplant team on Monday. States she needs to call her sister and let her know. I discussed with her, Daly knows as she updated me. All arrangements have been made. Pt does not remember this and cont. to cry. States its been so hard not feeling well and to repeatedly come back into the hospital. Discussed this is why she is staying until Sat so she can make her appt in [place]. Asked if she would like coloring pts and she states she would with crayons and not colored pencils. Coloring sheets and crayons to room.
--- NOTE | 2021-12-02 10:15 | NUR ---
PT CONT. TO BE OFF FLOOR FOR PROCEDURE.
--- NOTE | 2021-12-02 10:20 | NUR ---
pt returned to room 122 from paracentesis.
--- NOTE | 2021-12-02 11:13 | NUR ---
this rn checked with pharmacy and charge nurse - about am meds. waiting for pyxis changes and albumin. bs wnl no coverage - juice given for 82 bs and meal provided.
--- NOTE | 2021-12-02 13:20 | NUR ---
pt watching tv after meal, denies needs, abdominal paracentisis site to rlq intact drsg with gauze x 2 poke sites. taking po lactulose well.
--- NOTE | 2021-12-02 14:02 | NUR ---
PARACENTESIS...PER KIKO IN ULTRASOUND, WAS ONLY ABLE TO DRAIN 500ML OF FLUID DUE TO CATHETER DIFFICULTIES.
--- NOTE | 2021-12-02 14:06 | NUR ---
Assesed patients paracentesis incision sites on the patients lower right quadrent. The bleeding from the incision has stopped with no apparent bruising around the site. The site is also clean, dry and intact.
--- NOTE | 2021-12-02 14:36 | NUR ---
PT MUCH MORE RESPONSIVE TODAY. SHARED WITH ME SHE IS TO GO TO [place] FOR HER HER TRANSPLANT EVROSE MARIE SAT. GAVE ENCOURAGEMENT AND PRAYER WITH PT. WILL FOLLOW NEEDED
--- NOTE | 2021-12-02 15:04 | NUR ---
PT UP AMB IN [place] WITH STANDBY ASSIT. NAD - TOLLERATED WELL
--- NOTE | 2021-12-02 15:31 | NUR ---
At 1515 patient preformed oral hygeine by brushing her teach independently. Patient also changed her gown and her depends with stand by assist. Patient stated that she would like to go on a walk. student life vice president walked with patient around the med/surg floor, patient was stable on her feet and tolerated the walk well with no complaints.
--- NOTE | 2021-12-02 17:06 | NUR ---
pt up in , denies needs, bm earlier today noted. drinking well. alert and oriented.
--- NOTE | 2021-12-02 18:06 | NUR ---
Went into patients room for vital assessment and noticed that patients paracentesis incision was serosangous. Informed primary nurse and changed dressing with a 2x2 guaze and tape per primary nurse request with the assistance of vice president of nursing.
--- NOTE | 2021-12-02 21:32 | NUR ---
IN ROOM TO ADMINISTER MEDICATIONS AND ASSESS PT. SHE DENIES PAIN. BANDAID AND GAUZE TO LOWER R ABD ARE INTACT. GAUZE HAS SOME SEROSANGUINOUS DRAINAGE. PT CARRIES ON CONVERSATION WELL, JUST A LITTLE SLOW TO RESPOND BUT ALERT AND ORIENTED. TEA PROVIDED AND PT DENIES FURTHER NEEDS AT THIS TIME. CALL LIGHT IS CLOSE.
--- NOTE | 2021-12-02 23:52 | NUR ---
PT IS RESTING WITH EYES CLOSED, RR IS EVEN AND UNLABORED. CALL LIGHT IS CLOSE.
--- NOTE | 2021-12-03 02:10 | NUR ---
PT IS RESTING WITH EYES CLOSED, RR IS EVEN AND UNLABORED. CALL LIGHT IS CLOSE.
--- NOTE | 2021-12-03 04:45 | NUR ---
PT WAS UP TO USE THE RESTROOM. SHE DENIES PAIN AND NEEDS AT THIS TIME. CALL LIGHT IS CLOSE.
--- NOTE | 2021-12-03 06:52 | NUR ---
IN ROOM TO CHECK ON PT SHE IS AWAKE IN BED WATCHING TV. SHE DENIES FURHTER NEEDS AT THIS TIME. CALL LIGHT IS CLOSE.
--- NOTE | 2021-12-03 07:20 | NUR ---
bedside report from araceli rn, pt eyes closed, resp rate reg. call light in reach.
--- NOTE | 2021-12-03 08:10 | NUR ---
in pt room for assessment with student - pt in bed watching fb memories and sharing with rn. denies po pain meds.
--- NOTE | 2021-12-03 09:20 | NUR ---
Patient got up to use the restroom and afterwards patient preformed oral hygiene with a stand by assist with the nursing consultant. Patient then stated that she would like to sit in the chair with her feet up. Patient is now resting comfortably in the chair watching the news with a warm blanket.
--- NOTE | 2021-12-03 11:09 | NUR ---
PATIENT REQUESTED TO GO TO THE RESTROOM AND THEN GO ON A WALK. GREASE CUP FILLER ASSISTED PATIENT ON TWO LAPS AROUND MED/SURG FLOOR AND WHEN PATIENT RETURNED TO HER ROOM, SHE BRUSHED HER HAIR. PATIENT IS NOW SITTING IN CHAIR WITH A WARM BLANKET.
[2021-12-03] MEDS ORDERED: LACTULOSE20 GM/30 M PO (11:25)
[2021-12-03] MEDS ORDERED: SODIUM BICARBO650 MG PO (11:26)
--- NOTE | 2021-12-03 11:54 | NUR ---
PT SITTING UP IN CHAIR, ENJOYING THE SUNSHINE. PT SLEPT WELL, ANXIOUS FOR HER TRIP SAT TO [facility]. HAD PRAYER, GAVE ENCOURAGEMENT AND WILL FOLLOW
--- NOTE | 2021-12-03 12:13 | NUR ---
PATIENT TOLERATED A SHOWER WITH ASSISTANCE OF SUPPORT STAFF AND THE SUPPORT STAFF ALSO HELPED HER GET DRESSED IN HER OWN CLOTHES THAT SHE BROUGHT WITH HER. PATIENT IS NOW RESTING IN CHAIR.
--- NOTE | 2021-12-03 12:29 | NUR ---
FROM [facility] ON SPEAKER PHONE WITH PT NOW IN ROOM. HE IS RECONSILING MEDICATION LIST WITH PT AND VERIFY ALLERGY. HE EXPECTS HER OUTPATIENT ON MONDAY IN CLINIC.
--- NOTE | 2021-12-03 12:32 | NUR ---
ON PHONE IS not DR. AVILA FROM [facility] - IT IS THE [facility] PHARMACIST.
== END 2021-12-03 12:40 | disposition home or self-care (01) | DRG 442 ==
LOC: ED 08:04 → CCU 09:16 → MS 12-01 16:40
PROVIDERS: ADMIT Student in an Organized Health Care Education/Training Program; ATTEND Student in an Organized Health Care Education/Training Program
DX: K72.90 Hepatic failure, unspecified without coma (principal); K76.6 Portal hypertension; N18.4 Chronic kidney disease, stage 4 (severe); E87.2 Acidosis; E87.0 Hyperosmolality and hypernatremia; D61.818 Other pancytopenia; B18.2 Chronic viral hepatitis C; Z20.822 Contact with and (suspected) exposure to COVID-19; E11.22 Type 2 diabetes mellitus with diabetic chronic kidney disease; Z91.14 Patient's other noncompliance with medication regimen; K21.9 Gastro-esophageal reflux disease without esophagitis; Z79.4 Long term (current) use of insulin; Z79.899 Other long term (current) drug therapy
CPT/HCPCS: 49083; 51702; 80048; 80053; 81001; 82140; 82803; 83605; 83735; 85025; 85610; 87070; 87075; 87205; 89051; 93005; 93010; 94640; 99285-25; C9803; J1815; J3480; J7030; J7060; J7070; P9047; U0003

== ENCOUNTER 2022-01-11 12:03 | Emergency (ER) | payer MEDICARE, OTHER ==
[~2022-01-11] VITALS: Ht 160 cm; Wt 78.8 kg
--- OUTSIDE RECORDS SUMMARY | 2022-01-11 12:06 | XMS ---
PreManage Notification: LAURIE VELARDE Security Filling Machine Tender Events No recent Security Events currently on file CRITERIA MET - PDMP - 6 ED Visits in 6 Months - [facility] - 2 Visits in 30 Days CARE PROVIDERS Kyra Irene Engineering Faculty/Roll Icer 08/20/2021-Current PHONE: [phone] [facility] Current PHONE: [phone] Luciano has no Care Guidelines for this patient. Care History Medical/Surgical 11/30/2021 [facility] CONTACTED PATIENT MARJAN CROSS TIE TURNER- KYRA- [phone]. PATIENT HAS 33 HOURS A PAY PERIOD (2 WEEKS) WITH ENGINEERING INSTRU[employer] SERVICES PROVIDED BY PATIENT SISTER TIANA ASSESSMENT WAS RECENTLY COMPLETED IN AUGUST 2021. MARJAN CROSS TIE TURNER IS AWARE OF RECENT ED VISITS AND HOSPITALIZATIONS DUE TO NON COMPLIANCE WITH MEDICATIONS. [facility] WAS TRYING TO SET UP MEDICATION ALERT BOX AT PATIENT HOME AND PATIENT WAS NOT INTERESTED. E.D. VISIT COUNT (12 MO.) 1 [facility] [place] 1 Rudyálvaro MontezRoel 4 [facility] 17 [facility] Garcia TOTAL 23 NOTE: Visits indicate total known visits. ED/UCC VISIT TRACKING (12 MO.) 01/11/2022 12:04 [facility] [place] TYPE: Emergency COMPLAINT: - L ARM PAIN/BLISTERS 12/19/2021 11:36 [facility] [place] TYPE: Emergency COMPLAINT: - ALTERED 12/05/2021 18:03 [facility] TYPE: Emergency DIAGNOSES: 69688. SOB 42971. Unspecified cirrhosis of liver . Anemia, unspecified 11/29/2021 08:05 [facility] [place] TYPE: Emergency COMPLAINT: - UNRESPONSIVE,POSS LIVER FAILURE 11/21/2021 11:28 [facility] TYPE: Emergency COMPLAINT: - UNRESPONSIVE 11/14/2021 12:08 [facility] [place] TYPE: Emergency COMPLAINT: - ALTERED LOC 11/07/2021 10:19 [facility] TYPE: Emergency COMPLAINT: - UNRESPONSIVE 10/31/2021 10:22 [facility] TYPE: Emergency COMPLAINT: - ALTERED LOC 10/12/2021 09:30 [facility] TYPE: Emergency [...] viral hepatitis C without hepatic coma 7. 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 - Hypokalemia [facility] DIAGNOSES: - Abdominal Pain - Other ascites - Liver disease, unspecified - needs fluid drained from stomach 08/13[facility]2021 17[facility] DIAGNOSES: - periantesis - Other ascites - Abdominal Distension 08/06/2021 11:[facility] DIAGNOSES: - Abdominal Distension; SOB - Other ascites - Medical Problem (Minor) - Hepatic failure, unspecified without coma 07/31/2021 13:13 [facility] TYPE: Emergency COMPLAINT: - WEAKNESS 2021 09:07 [facility] TYPE: Emergency COMPLAINT: - ALTERED LOC Plus 3 More Visits INPATIENT VISIT TRACKING (12 MO.) 12/19/2021 11:37 [facility] TYPE: Observation COMPLAINT: - HEPATIC ENCEPHALOPATHY DIAGNOSES: - Chronic hepatic failure without coma - Acute and subacute hepatic failure without coma - Pleural effusion, not elsewhere classified - prison (current) use of insulin - Umbilical hernia without obstruction or gangrene - Type 2 diabetes mellitus without complications - Unspecified viral hepatitis C without hepatic coma - Peritoneal adhesions (postprocedural) (postinfection) - Unspecified cirrhosis of liver - Gastro-esophageal reflux disease without esophagitis - Secondary esophageal varices without bleeding - Other pancytopenia 12/05/2021 18:03 [facility] TYPE: General Medicine DIAGNOSES: [id number]. Other ascites 61591. Unspecified cirrhosis of liver 34629. 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..] failure without coma - Thrombocytopenia, unspecified - terminal manager (current) use of insulin 11/14/2021 12:09 [facility] TYPE: Observation COMPLAINT: - ENCEPHALOPATHY DIAGNOSES: - Other secondary thrombocytopenia - Unspecified viral hepatitis C without hepatic coma - Chronic hepatic failure without coma - Chronic kidney disease, stage 4 (severe) - prison (current) use of insulin - OTHER TOXIC ENCEPHALOPATHY - Type 2 diabetes mellitus with diabetic chronic kidney disease - Personal history of other infectious and parasitic diseases - Gastro-esophageal reflux disease without esophagitis - Metabolic encephalopathy - Type 2 diabetes mellitus with ketoacidosis without coma 11/07/2021 10:20 [facility] TYPE: Observation COMPLAINT: - HEPATIC ENCEPHALOPATHY DIAGNOSES: - prison (current) use of insulin - Type 2 [...] states - Acidosis - Acidosis - 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 - Chronic kidney disease, stage 4 (severe) - Type 2 diabetes mellitus with diabetic chronic kidney disease - terminal manager (current) use of insulin - Unspecified cirrhosis of liver - terminal manager (current) use of insulin - Chronic viral hepatitis C - Hypersplenism - Thrombocytopenia, unspecified - Acute and subacute hepatic failure without coma - Thrombocytopenia, unspecified - Other shelter (current) drug therapy - Portal hypertension - Acute and subacute hepatic failure without coma - Hypersplenism - Type 2 diabetes mellitus with diabetic chronic kidney disease - Portal hypertension 10/14/2021 18:57 [facility] TYPE: Internal Medicine DIAGNOSES: - Acidosis - [...] viral hepatitis C without hepatic coma - terminal manager (current) use of insulin - Acidosis - Chronic kidney disease, stage 4 (severe) - Hypertensive chronic kidney disease with stage 1 through stage 4 chronic kidney disease, or unspecified chronic kidney disease - Unspecified cirrhosis of liver 10/08/2021 11:05 [facility] TYPE: Observation COMPLAINT: - HEPATIC ENCEPHALOPATHY DIAGNOSES: - Chronic kidney disease, stage 4 (severe) - Hepatic failure, unspecified without coma - prison (current) use of insulin - Portal hypertension [...] - Other ascites - Portal hypertension - prison (current) use of insulin - Type 2 diabetes mellitus with diabetic chronic kidney disease - Type 2 diabetes mellitus with diabetic chronic kidney disease - Chronic viral hepatitis C - 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 - Thrombocytopenia, unspecified - Thrombocytopenia, unspecified - Hypersplenism - Unspecified cirrhosis of liver - Acute kidney failure, unspecified - Hypersplenism - Anemia, unspecified - Hyperkalemia - Chronic kidney disease, stage 4 (severe) - Anemia, unspecified - Gastro-esophageal reflux disease without esophagitis 09/23/2021 13:12 [facility] TYPE: Observation COMPLAINT: - HEPATIC ENCEPH DIAGNOSES: - Hepatic failure, unspecified without coma - prison (current) use of insulin - Acute and [...] - Gastro-esophageal reflux disease without esophagitis - prison (current) use of insulin - Type 2 diabetes mellitus with diabetic chronic kidney disease - Dehydration - Dehydration - Portal hypertension - Anemia in other chronic diseases classified elsewhere - terminal manager (current) use of insulin - Hypersplenism - Postprocedural hepatic failure - Hypersplenism - Gastro-esophageal reflux disease without esophagitis - Unspecified viral hepatitis C without hepatic coma - Unspecified cirrhosis of liver - Unspecified viral hepatitis C without hepatic coma - Unspecified cirrhosis of liver - Other pancytopenia - Other shelter (current) drug therapy - Anemia in other chronic diseases classified elsewhere - Anemia in chronic kidney disease - Other pancytopenia - Chronic kidney disease, stage 4 (severe) - Portal hypertension - 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 08/26/2021 13:56 [facility] TYPE: Medical Surgical COMPLAINT: - HEPATIC ENCEPHALOPATHY DIAGNOSES: - Unspecified cirrhosis of liver - Personal history of other infectious and parasitic diseases - Hypertensive chronic kidney disease with stage 1 through stage 4 chronic kidney disease, or unspecified chronic kidney disease - Portal hypertension - Other pancytopenia - Other shelter (current) drug therapy - Dehydration - Other specified postprocedural states - Acute and subacute hepatic failure without coma - Gastro-esophageal reflux disease without esophagitis - Hypertensive chronic kidney disease with stage 1 through stage 4 chronic kidney disease, or unspecified chronic kidney disease - prison (current) use of insulin - Hypersplenism - Acidosis - Type 2 diabetes mellitus with diabetic chronic kidney disease - Gastro-esophageal reflux disease without esophagitis - Dehydration - Other shelter (current) drug therapy - Chronic kidney disease, stage 4 (severe) - COVID-19 - Unspecified cirrhosis of liver - Portal hypertension - Hypersplenism - Chronic kidney disease, stage 4 (severe) - Type 2 diabetes mellitus with diabetic chronic kidney disease - Other specified postprocedural states - prison (current) use of insulin - COVID-19 - Acidosis - Secondary esophageal varices without bleeding - Personal history of other infectious and parasitic diseases 07/31/2021 17:24 [facility] TYPE: Observation COMPLAINT: - HEPATIC ENCEPHALOPATHY DIAGNOSES: - COVID-19 - Urinary tract infection, site not specified - Unspecified viral hepatitis C without hepatic coma - Metabolic encephalopathy - prison (current) use of insulin - Type 2 diabetes mellitus with diabetic chronic kidney disease - Hepatic failure, unspecified without coma - Chronic kidney disease, stage 4 (severe) 2021 13:07 [facility] TYPE: Medical Surgical COMPLAINT: - HEPATIC ENCEPHALOPATHY DIAGNOSES: - terminal manager (current) use of insulin - Portal hypertension - Chronic kidney disease, stage 4 (severe) - 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 TYPE: Medical Surgical COMPLAINT: - ENCEPHALOPATHY DIAGNOSES: - terminal manager (current) use of insulin - Chronic kidney [...] - Other specified postprocedural states - Other shelter (current) drug therapy - Metabolic encephalopathy - prison (current) use of systemic steroids - Aphasia - prison (current) use of systemic steroids - terminal manager (current) use of insulin - Other shelter (current) drug therapy [email or web address]
[2022-01-11] MEDS ORDERED: CIPROFLOXACIN500 MG PO (18:02)
[2022-01-11] MEDS ORDERED: SPIRONOLACTONE50 MG PO (18:02)
[2022-01-11] MEDS ORDERED: CEPHALEXIN250 MG PO (18:03)
== END 2022-01-11 17:41 | disposition short-term general hospital (02) ==
LOC: ED 12:03
DX: I74.2 Embolism and thrombosis of arteries of the upper extremities (principal); E11.9 Type 2 diabetes mellitus without complications; K21.9 Gastro-esophageal reflux disease without esophagitis; Z79.899 Other long term (current) drug therapy; Z79.4 Long term (current) use of insulin; Z20.822 Contact with and (suspected) exposure to COVID-19
CPT/HCPCS: 36415; 80048; 85025; 85610; 85730; 93971; 96374; 96375; 96376; 99284-25; C9803; J1644; J2270; J2405; U0003